=== PATIENT | female | born 1930 | race Caucasian/White ===

== ENCOUNTER 2018-04-16 11:11 | Inpatient (IN) | payer MEDICARE, OTHER ==
[~2018-04-16] VITALS: Ht 152.4 cm; Wt 40.9 kg
[2018-04-16] MEDS ORDERED: CEFEPIME 2GM/50 ML (PMX) 50 ML IVPB STA (11:28)
[2018-04-16] MEDS ORDERED: VANCOMYCIN 1 GM (PMX) 250 ML IVPB ONE (11:30)
[2018-04-16] MEDS ORDERED: ACETAMINOPHEN 650 MG SUPP PR ONE (12:00)
[2018-04-16] MEDS ORDERED: CHOL100062 PO (12:37)
[2018-04-16] MEDS ORDERED: ASPI325T30 PO (12:37)
[2018-04-16] MEDS ORDERED: IPRA3AMP29 INHALATION (12:37)
[2018-04-16] MEDS ORDERED: DILT120C79 PO (12:38)
[2018-04-16] MEDS ORDERED: LEVO125T7 PO (12:39)
[2018-04-16] MEDS ORDERED: ASPI325T32 PO (12:39)
[2018-04-16] MEDS ORDERED: MULTI PO (12:40)
[2018-04-16] MEDS ORDERED: OMEP20CA16 PO (12:40)
[2018-04-16] MEDS ORDERED: ACET-2047 PO (12:41)
[2018-04-16] MEDS ORDERED: TRAM50TA PO (12:41)
[2018-04-16] MEDS ORDERED: METF-849 PO (12:42)
[2018-04-16] MEDS ORDERED: MECL-77 PO (12:42)
[2018-04-16] MEDS ORDERED: INSU100C SQ (12:43)
[2018-04-16] MEDS ORDERED: MAGN400O19 PO (12:44)
[2018-04-16] MEDS ORDERED: CLON1TAB13 PO (12:45)
[2018-04-16] MEDS ORDERED: QUET25TA PO (12:46)
[2018-04-16] MEDS ORDERED: SERT50TA PO (12:46)
[2018-04-16] MEDS ORDERED: traMADol 50 MG TAB PO PRN (14:00)
[2018-04-16] MEDS ORDERED: ALBUTEROL/IPRATROPIUM (NEB) 3 ML AMP NEB PRN (14:00)
[2018-04-16] MEDS ORDERED: MECLIZINE 25 MG TAB PO PRN (14:00)
[2018-04-16] MEDS ORDERED: ONDANSETRON 4 MG INJ IV PRN ×2 (14:00→14:30)
[2018-04-16] MEDS ORDERED: MAGNESIUM HYDROXIDE 30ML CUP PO PRN (14:00)
[2018-04-16] MEDS ORDERED: ACETAMINOPHEN 325 MG TAB PO PRN ×2 (14:00→14:30)
[2018-04-16] MEDS ORDERED: SODIUM CHLORIDE 0.9% 1L BAG IV* STA (14:06)
--- NOTE | 2018-04-16 14:06 | ERD ---
ER Documentation Chief Complaint Chief Complaint PT BIB AMBULANCE FROM [facility], GIVEN [facility]ARCH SPECIALIST HPI Patient is a 87-year-old female who presents with shortness of breath. She has supposedly being treated for pneumonia recently. Please note the history and physical exam is limited secondary to the patient's mental status at this time. The patient was supposedly given a clonazepam this morning which may account for some of her altered mental status. Upon review of old medical records this is the patient's first visit to the emergency department. Unable to obtain history otherwise. ROS All systems reviewed and are negative except as per history of present illness. Medications Home Meds Reported Medications Quetiapine Fumarate* (Seroquel*) 25 Mg Tablet, 12.5 MG PO QPM, #60 TAB 04/16/18 Sertraline Hcl* (Zoloft*) 50 Mg Tablet, 50 MG PO DAILY, #30 TAB 04/16/18 Clonazepam* (Clonazepam*) 1 Mg Tablet, 1 MG PO BID PRN for ANXIETY, TAB 04/16/18 Magnesium Hydroxide* (Milk Of Magnesia*) 400 Mg/5 Ml Oral.susp, 30 ML PO DAILY PRN for CONSTIPATION, ML 04/16/18 Insulin Lispro (Humalog) 100 Unit/1 Ml Cartridge, 2-12 UNIT SQ AC B, EA 04/16/18 Metformin* (Glucophage*) 500 Mg Tab, 500 MG PO BID, #90 TAB 04/16/18 Meclizine Hcl* (Meclizine Hcl*) 25 Mg Tablet, 25 MG PO Q8H PRN for DIZZINESS, TAB 04/16/18 Tramadol Hcl* (Ultram*) 50 Mg Tablet, 50 MG PO Q6H PRN for PAIN, TAB 04/16/18 Acetaminophen* (Acetaminophen*) 650 Mg Tablet, 650 MG PO Q4 PRN for PAIN AND OR ELEVATED TEMP, #30 TAB 04/16/18 Omeprazole* (Omeprazole*) 20 Mg Capsule.dr, 20 MG PO AC BREAKFAST, #30 CAP 04/16/18 Multivitamins* (Theragran*) 1 Tab Tab, 1 TAB PO DAILY, TAB 04/16/18 Levothyroxine Sodium* (Levothyroxine Sodium*) 125 Mcg Tablet, 125 MCG PO BEFORE BREAKFAST, #30 TAB 04/16/18 Aspirin* (Aspirin* EC) 325 Mg Tab, 325 MG PO DAILY, TAB 04/16/18 Diltiazem Hcl* (Diltiazem XT) 120 Mg Capsule.sa, 120 MG PO BID, #30 CAP 04/16/18 Cholecalciferol* (Vitamin D3*) 1,000 Unit Tablet, 1000 UNIT PO DAILY, TAB 04/16/18 Ipratropium-Albuterol (Ipratropium-Albuterol) 0.5-3 Mg/3 Ml Ampul.neb, 3 ML INHALATION Q6 PRN for WHEEZING AND SOB, #30 VIAL 04/16/18 Discontinued Reported Medications Aspirin* (Aspirin*) 325 Mg Tablet, 325 MG PO DAILY, TAB 04/16/18 Allergies Allergies: Coded Allergies: codeine (Verified Allergy, Unknown, 04/16/18) PMhx/Soc Hx Respiratory Disorders: Yes (CHRONIC RESP FAILURE, PNEUMONIA) Hx Miscellaneous Medical Probl: Yes (HYPOTHYROID, DM, SEPSIS) Hx Alcohol Use: No Hx Substance Use: No Hx Tobacco Use: No Smoking Status: Unknown if ever smoked FmHx Unable to obtain Physical Exam Vitals Vital Signs Date Temp Pulse Resp B/P (MAP) Pulse Ox O2 O2 Flow FiO2 Time Delivery Rate 04/16/18 100.7 12:00 04/16/18 Simple 11:50 Mask 04/16/18 100.7 113 21 153/64 97 11:44 (93) Physical Exam Const: Altered Head: Atraumatic Eyes: Normal Conjunctiva ENT: Normal External Ears, Nose and Mouth. Neck: Full range of motion. No meningismus. Resp: Rhonchorous breath sounds diffusely with tachypnea Cardio: Tachycardic rate without murmur Abd: Soft, non tender, non distended. Normal bowel sounds Skin: No petechiae or rashes Back: No midline or flank tenderness Ext: No cyanosis, or edema Neur: Opens eyes to pain but does not respond to questions Result Diagram: 04/16/18 1204 04/16/18 1204 Results 24 hrs Laboratory Tests Test 04/16/18 11:59 04/16/18 12:04 POC Venous Lactate 1.9 mmol/L White Blood Count 14.3 10^3/ul Red Blood Count 3.38 10^6/ul Hemoglobin 10.1 g/dl Hematocrit 34.1 % Mean Corpuscular Volume 100.9 fl Mean Corpuscular Hemoglobin 29.9 pg Mean Corpuscular Hemoglobin Concent 29.6 g/dl Red Cell Distribution Width 14.4 % Platelet Count 349 10^3/UL Mean Platelet Volume 8.9 fl Immature Granulocytes % 0.400 % Neutrophils % 93.4 % Lymphocytes % 4.1 % Monocytes % 1.7 % Eosinophils % 0.1 % Basophils % 0.3 % Nucleated Red Blood Cells % 0.0 /100WBC Immature Granulocytes # 0.060 10^3/ul Neutrophils # 13.4 10^3/ul Lymphocytes # 0.6 10^3/ul Monocytes # 0.2 10^3/ul Eosinophils # 0.0 10^3/ul Basophils # 0.0 10^3/ul Nucleated Red Blood Cells # 0.0 10^3/ul Prothrombin Time 13.7 Sec Prothrombin Time Ratio 1.1 INR International Normalized Ratio 1.04 Activated Partial Thromboplast Time 26.3 Sec Sodium Level 146 mmol/L Potassium Level 4.1 mmol/L Chloride Level 103 mmol/L Carbon Dioxide Level 38 mmol/L Anion Gap 5 Blood Urea Nitrogen 43 mg/dl Creatinine 0.52 mg/dl Est Glomerular Filtrat Rate mL/min mL/min Glucose Level 273 mg/dl Calcium Level 9.7 mg/dl Total Bilirubin 0.1 mg/dl Direct Bilirubin 0.00 mg/dl Indirect Bilirubin 0.1 mg/dl Aspartate Amino Transf (AST/SGOT) 19 IU/L Alanine Aminotransferase (ALT/SGPT) 25 IU/L Alkaline Phosphatase 75 IU/L Troponin I 0.022 ng/ml Total Protein 6.1 g/dl Albumin 3.1 g/dl Globulin 3.00 g/dl Albumin/Globulin Ratio 1.03 Current Medications Medications Dose Sig/Jaya Start Time Status Last (Trade) Ordered Route PRN Stop Time Admin Dose Reason Admin Cefepime HCl 50 ml @ ONCE STAT 04/16/18 DC 04/16/18 100 mls/hr IVPB 11:28 12:22 04/16/18 11:57 Vancomycin 250 ml @ ONCE ONCE 04/16/18 DC 04/16/18 HCl 125 mls/hr IVPB 11:30 12:55 04/16/18 13:29 650 mg ONCE ONCE 04/16/18 DC 04/16/18 Acetaminophen UT 12:00 12:00 (Tylenol 04/16/18 12:02 Supp) Ondansetron 4 mg ER BRIDGE 04/16/18 HCl (Zofran PRN IV 14:00 Inj) NAUSEA AND/OR 04/17/18 13:59 VOMITING 650 mg ER BRIDGE 04/16/18 Acetaminophen PRN PO MILD 14:00 (Tylenol PAIN(1-3)OR 04/17/18 13:59 Tab) ELEVATED TEMP Procedures/MDM Chest x-ray read by radiology EKG read by me: Rate/Rhythm: Sinus tachycardia rate of 113 Intervals: Normal Impression: Tachycardia without ischemia Sepsis Documentation: Patient's infectious symptoms have not stabilized and the patient is at risk of rapid decompensation. The patient will be admitted for careful hydration, antibiotic therapy, and infectious source control. SEVERE SEPSIS CRITERIA: Infectious source: Pneumonia End organ damage indicated by: No endorgan damage at this time SEPSIS MANAGEMENT Time of recognition of sepsis: 11:59 AM Time of recognition of severe sepsis: [No severe sepsis at this time]. Time of recognition of septic shock: [No septic shock at this time]. 3 HOUR BUNDLE Blood cultures x 2 before broad-spectrum antibiotics: [Yes] 30 ml/kg NS bolus [Completed] Initial lactate 1.9 Repeat lactate pending SEPTIC SHOCK ASSESSMENT: [No] lactic acid > 4.0 [No] Persistent hypotension (SBP < 90 or 40 mmHg drop, MAP < 65) despite 30 mL/kg IV fluid bolus VOLUME REASSESSMENT FOR SEPTIC SHOCK: No septic shock at this time PERSISTENT HYPOTENSION TREATMENT: Comfort care [No] Central line [Not Required] Vasopressor started [Not required] I considered further perfusion assessment with CVP measurement, SCVO2, bedside ultrasound volume assessment, passive leg raise, trial of further fluid bolus. And proceeded with broad-spectrum antibiotics and admission as well as 30 mL/kg of normal saline. CRITICAL CARE Critical care time [35] minutes Emergent fluid management while maintaining close respiratory support. Provision of immediate and broad-spectrum antibiotic therapy. Simultaneous assessment for possible sources in order to direct targeted therapy. Consideration for invasive and chemical support to prevent cardiopulmonary collapse. Critical care time is independent of procedures performed. Departure Diagnosis: Primary Impression: Sepsis Sepsis type: sepsis due to unspecified organism Qualified Codes: A41.9 - Sepsis, unspecified organism Additional Impressions: PNA (pneumonia) Pneumonia type: due to unspecified organism Laterality: unspecified laterality Lung location: unspecified part of lung Qualified Codes: J18.9 - Pneumonia, unspecified organism Altered level of consciousness Condition: GIOVANNY Chau MD Apr 16, 2018 14:05
[2018-04-16] MEDS ORDERED: morphine 2 MG INJ IV STA (14:28)
[2018-04-16] MEDS ORDERED: SOD CHLORIDE 0.9% 1,000 ML IV SCH (14:30)
[2018-04-16] MEDS ORDERED: NACL 0.9% 3 ML SYG IV SCH (14:30)
[2018-04-16] MEDS ORDERED: IOHEXOL 300MG/ML 150 ML BTL ONE (14:35)
[2018-04-16] MEDS ORDERED: SOD CHLORIDE 0.9% 100 ML ONE (14:35)
[2018-04-16] MEDS ORDERED: IODIXANOL LOCM 100 ML BTL ONE (14:38)
[2018-04-16] MEDS ORDERED: DEXTROSE 50% 50 ML SYRINGE IV PRN ×2 (16:30)
[2018-04-16] MEDS ORDERED: GLUCOSE GEL 15 GRAM TUBE BUCCAL PRN (16:30)
[2018-04-16] MEDS ORDERED: GLUCAGON 1 MG INJ IM PRN (16:30)
[2018-04-16] MEDS ORDERED: GLUCOSE GEL 15 GRAM TUBE PO PRN ×2 (16:30)
[2018-04-16 16:57] VITALS: PULSE 160
[2018-04-16] MEDS ORDERED: DILTIAZEM 25 MG INJ IV ONE (17:00)
[2018-04-16] MEDS ORDERED: AMIODARONE 150MG/D5W BOLUS 100 ML IV ONE (17:30)
--- NOTE | 2018-04-16 17:54 | HP ---
Date/Time of Note Date/Time of Note DATE: 04/16/18 TIME: 17:12 Assessment/Plan VTE Prophylaxis SCD applied (from Nsg): Yes Pharmacological prophylaxis: heparin Lines/Catheters IV Catheter Type (from Nrsg): Saline Lock Assessment/Plan Assessment/Plan 1. Acute hypoxic respiratory failure secondary to pneumonia vs neoplastic process - Patient transitioned to high flow in ED - continue on IV antibiotics and steroids - Pulmonology consultation placed for further recommendations - CT scan results show soft tissue density in right hilum as well as " Extensive lower lung predominant ground-glass and nodular infiltrates and tree in bud nodules. Findings could represent an atypical infectious process with bronchio litis in the acute clinical setting. Differential diagnosis includes neoplastic process with endobronchial spread of tumor. Recommend short term follow-up CT to document complete resolution." 2. Afib with RVR - patient in afib with HR in 170s - Will consult Cardiology for recommendations - Given Cardizem 5mg with no improvement and will start on Amiodarone drip 3. hypothyroidism - continue levothyroxine 4. DM - A1c 7.7 - Will continue on ISS and accuchecks - added Novolog 70/30 with steroids 5. HTN 6. Rheumatoid arthritis - continue on pain control as tolerated 7. Diet - pureed 8. DVT ppx - heparin 9. code status - Per POL, pt is full code. Discussed code status with son who would like her to remain full code since has family coming for DC and would like to keep on life support if needed until all family is in town. 10. Disposition - admit to telemetry for treatment of acute respiratory distress. Result Diagram: 04/16/18 1204 04/16/18 1204 Results 24hrs Laboratory Tests Test 04/16/18 11:59 04/16/18 12:04 04/16/18 15:22 POC Venous Lactate 1.9 1.0 White Blood Count 14.3 H Red Blood Count 3.38 L Hemoglobin 10.1 L Hematocrit 34.1 L Mean Corpuscular Volume 100.9 Mean Corpuscular Hemoglobin 29.9 Mean Corpuscular Hemoglobin Concent 29.6 L Red Cell Distribution Width 14.4 Platelet Count 349 Mean Platelet Volume 8.9 Immature Granulocytes % 0.400 Neutrophils % 93.4 H Segmented Neutrophils % (Manual) 32 L Band Neutrophils % (Manual) 62 H Lymphocytes % 4.1 L Lymphocytes % (Manual) 3 L Monocytes % 1.7 Monocytes % (Manual) 1 Eosinophils % 0.1 Basophils % 0.3 Metamyelocytes % (manual) 2 H Nucleated Red Blood Cells % 0.0 Immature Granulocytes # 0.060 H Neutrophils # 13.4 H Neutrophils # (Manual) 5.8 Band Neutrophils # 8.8 H Lymphocytes (Manual) 0.4 L Lymphocytes # 0.6 L Monocytes # 0.2 L Monocytes # (Manual) 0.1 L Eosinophils # 0.0 Basophils # 0.0 Metamyelocytes # 0.2 H Nucleated Red Blood Cells # 0.0 Platelet Estimate NORMAL Anisocytosis 1+ Macrocytosis 1+ Prothrombin Time 13.7 Prothrombin Time Ratio 1.1 INR International Normalized Ratio 1.04 Activated Partial Thromboplast Time 26.3 Sodium Level 146 H Potassium Level 4.1 Chloride Level 103 Carbon Dioxide Level 38 H Anion Gap 5 Blood Urea Nitrogen 43 H Creatinine 0.52 Est Glomerular Filtrat Rate mL/min Glucose Level 273 H Hemoglobin A1c 7.7 H Calcium Level 9.7 Total Bilirubin 0.1 L Direct Bilirubin 0.00 Indirect Bilirubin 0.1 Aspartate Amino Transf (AST/SGOT) 19 Alanine Aminotransferase (ALT/SGPT) 25 Alkaline Phosphatase 75 Troponin I 0.022 Total Protein 6.1 Albumin 3.1 L Globulin 3.00 Albumin/Globulin Ratio 1.03 HPI/ROS Admit Date/Time Admit Date/Time Apr 16, 2018 at 13:54 Hx of Present Illness 87 yo F with PMH hypothyroidism, elevated sugars, and HTN presented from [facility] for altered mental status and confusion. She was given Klonopin prior to arrival. Son was at bedside and history obtained from son. Patient was nonresponsive with respiratory distress and unable to provide proper history. Per son, [facility] multiple admission to [facility] for UTI and most recently pneumonia. She is currently on a steroid taper as well and son is concerned about elevated sugar levels. Patient is currently on simple mask and being transitioned to high flow given tachypnea and labored breathing. ROS All 12 systems reviewed and pertinent positives as per HPI. All others negative but unable to obtain full ROS due to altered mental status. Subjective hx not possible: pt non-verbal, other (confused) Respiratory: shortness of breath PMH/Family/Social Past Medical History Medical History: hypertension, hypothyroid, other (high blood sugar secondary to steroids ) Medications Current Medications Aspirin (Ecotrin) 325 mg DAILY PO ; Start 04/17/18 at 09:00 Cholecalciferol (Vitamin D) 1,000 unit DAILY PO ; Start 04/17/18 at 09:00 Diltiazem HCl (Cardizem Cd) 120 mg BID PO ; Start 04/16/18 at 21:00 Albuterol/ Ipratropium (Duoneb) 3 ml Q6H RESP THERAPY PRN NEB WHEEZING AND SOB; Start 04/16/18 at 14:00 Levothyroxine Sodium (Synthroid) 125 mcg BEFORE BREAKFAST PO ; Start 04/17/18 at 07:00 Magnesium Hydroxide (Milk Of Mag) 30 ml DAILY PRN PO CONSTIPATION; Start 04/16/18 at 14:00 Meclizine HCl (Antivert) 25 mg Q8H PRN PO DIZZINESS; Start 04/16/18 at 14:00 Multivitamins Therapeutic (Theragran) 1 tab DAILY PO ; Start 04/17/18 at 09:00 Quetiapine Fumarate (Seroquel) 12.5 mg QPM PO ; Start 04/16/18 at 21:00 Sertraline HCl (Zoloft) 50 mg DAILY PO ; Start 04/17/18 at 09:00 Tramadol HCl (Ultram) 50 mg Q6H PRN PO PAIN; Start 04/16/18 at 14:00 Pantoprazole (Protonix Tab) 40 mg DAILY@06 PO ; Start 04/17/18 at 06:00 IV Flush (NS 3 ml) 3 ml PER PROTOCOL IV ; Start 04/16/18 at 14:30 Ondansetron HCl (Zofran Inj) 4 mg Q6H PRN IV NAUSEA AND/OR VOMITING; Start 04/16/18 at 14:30 Acetaminophen (Tylenol Tab) 650 mg Q6H PRN PO PAIN LEVEL 1-3 OR FEVER; Start 04/16/18 at 14:30 Enoxaparin Sodium (Lovenox) 30 mg DAILY SC ; Start 04/17/18 at 09:00 Cefepime HCl 50 ml @ 100 mls/hr Q24H IVPB ; Start 04/16/18 at 21:00 Levalbuterol (Xopenex Neb) 0.63 mg Q6H RESP THERAPY HHN ; Start 04/16/18 at 20:00 Insulin Aspart (Novolog Insulin Pen) NOVOLOG *MILD* ALGORITHM WITH MEALS BEDTIME SC ; Start 04/16/18 at 18:00 Methylprednisolone Sodium Succinate (Solu-Medrol) 40 mg Q12 IV ; Start 04/16/18 at 21:00 Insulin Aspart Prota 70%/Aspart 30% (Novolog Mix (70/ 30) Flexpen) 10 unit BID SC ; Start 04/16/18 at 21:00 Sodium Chloride 1,000 ml @ 50 mls/hr Q20H IV Last administered on 04/16/18at 14:30; Admin Dose 50 MLS/HR; Start 04/16/18 at 14:30 Miscellaneous Information 1 ea NOTE XX ; Start 04/16/18 at 16:30 Glucose (Glutose) 15 gm Q15M PRN PO DECREASED GLUCOSE; Start 04/16/18 at 16:30 Glucose (Glutose) 22.5 gm Q15M PRN PO DECREASED GLUCOSE; Start 04/16/18 at 16:30 Dextrose (D50w Syringe) 25 ml Q15M PRN IV DECREASED GLUCOSE; Start 04/16/18 at 16:30 Dextrose (D50w Syringe) 50 ml Q15M PRN IV DECREASED GLUCOSE; Start 04/16/18 at 16:30 Glucagon (Glucagen) 1 mg Q15M PRN IM DECREASED GLUCOSE; Start 04/16/18 at 16:30 Glucose (Glutose) 15 gm Q15M PRN BUCCAL DECREASED GLUCOSE; Start 04/16/18 at 16:30 Coded Allergies: codeine (Verified Allergy, Unknown, 04/16/18) Past Surgical History Past Surgical Hx: other (unable to obtain) Family History Significant Family History: no pertinent family hx Social History Alcohol Use: none Smoking Status: Unknown if ever smoked Drug Use: none Exam/Review of Systems Vital Signs Vitals Vital Signs Date Temp Pulse Resp B/P (MAP) Pulse Ox O2 O2 Flow FiO2 Time Delivery Rate 04/16/18 160 16:57 04/16/18 96 75 16:30 04/16/18 98.1 32 135/75 High Flow 15:39 (95) Exam Exam General: Patient in respiratory distress and unable to answer questions HEENT: Atraumatic, normocephalic. The pupils are equal, round and reactive. Extraocular motor are intact Neck: Supple with full range of motion. No rigidity or meningismus Chest: Nontender to palpation Lungs: Diminished diffusely with expiratory wheezing and crackles Heart: Normal S1-S2, Irregular rhythm, tachycardia. No overt murmurs appreciated on auscultation Abdomen: Soft , nontender, nondistended , bowel sounds are present. No guarding no rebound tenderness , No masses or organomegaly. No costovertebral temporal angle mass Extremities: no cyanosis, clubbing, or edema Neurologic: unable to assess Additional Comments Home medications reviewed Imaging: PROCEDURE: XR Chest. CLINICAL INDICATION: Chest pain TECHNIQUE: Single frontal view of the chest was obtained. COMPARISON: None FINDINGS: The heart is within normal limits. The thoracic aorta is calcified. There are increased interstitial changes throughout the lungs. There is no focal consolidation. There is no pleural effusion or pneumothorax. RPTAT: AA IMPRESSION: Moderate increased interstitial changes throughout the lungs with no focal consolidation. Calcified aorta consistent with atherosclerotic disease. .Mick Melo MD, MD Date Time Electronically viewed and signed by .Mick Melo MD, MD on 04/16/2018 12:00 PROCEDURE: CT chest with contrast CLINICAL INDICATION: Shortness of breath TECHNIQUE: Transaxial computed tomographic images of the chest were obtained following the uneventful administration of 80 mL Visipaque 320 intravenous contrast. Coronal and sagittal reformatted images were provided. DICOM images are available. Radiation dose: CTDIvol (mGy) = 7.06; total DLP (mGy.cm) = 226.1. One or more of the following dose reduction techniques were used: - Automated exposure control. - Adjustment of the mA and/or kV according to patient size. - Use of iterative reconstruction technique. COMPARISON: DR CORCORAN 04/16/2018. FINDINGS: Examination is limited by motion artifacts. Heart size is normal. There is no pericardial effusion. There are moderate to severe atherosclerotic calcifications of the aorta and coronary arteries. There is no enlarged mediastinal or axillary lymph node. There is no pleural effusion or pneumothorax. Multiple surgical clips are seen in the right breast. Lung windows demonstrates extensive ground-glass and nodular infiltrates and tree in bud nodules, predominantly in the lower lungs. There is an ill-defined soft tissue density in the right hilum measuring approximately 2.6 x 2.2 cm narrowing distal right mainstem bronchus, bronchus intermedius and proximal rig ht middle lobe bronchus. Limited images of the upper abdomen demonstrate partial visualization of an exophytic right upper pole renal cyst measuring 5.5 cm. There is diffuse hepatic steatosis. Adrenal glands are normal. There is partial visualization of thick- walled hepatic flexure of the colon. Bone window demonstrates moderate multilevel degenerative changes of thoracic spine. There is increased thoracic kyphosis. IMPRESSION: 1. Extensive lower lung predominant ground-glass and nodular infiltrates and tree in bud nodules. Findings could represent an atypical infectious process with bronchiolitis in the acute clinical setting. Differential diagnosis includes neoplastic process with endobronchial spread of tumor. Recommend short term follow-up CT to document complete resolution. 2. Ill-defined soft tissue density in the right hilum narrowing the distal right mainstem bronchus, proximal right middle lobe bronchus and bronchus intermedius. Differential diagnosis includes an infectious or neoplastic process. 3. Moderate to severe aortic and coronary atherosclerosis. 4. Partial visualization of thick-walled hepatic flexure of the colon, incompletely evaluated on this examination. Colitis is not excluded. 5. Other incidental findings, as above. RPTAT:AAEE Physician Stephanie Date Time Electronically viewed and signed by Physician Stephanie on 04/16/2018 15:27 CHASE LIM MD Apr 16, 2018 17:54
[2018-04-16] MEDS: INSULIN ASPART [NOVOLOG] 3 ML PEN SC SCH ×2 (18:00→22:07)
[2018-04-16] MEDS: AMIODARONE 900 MG in DEXTROSE 5% 482 ML IV SCH (18:27)
[2018-04-16] MEDS ORDERED: DIGOXIN 500 MCG INJ IV ONE (18:30)
--- NOTE | 2018-04-16 18:33 | CONS ---
Date/Time of Note Date/Time of Note DATE: 04/16/18 TIME: 18:25 Assessment/Plan Assessment/Plan Hospital Course New onset atrial fibrillation with RVR: No known history. Likely due to underlying respiratory failure Respiratory failure:CT shows possible bronchiolitis as well as right hilar mass compressing right airway. Does not appear to have CHF at this time and respiratory distress preceded the afib so unlikely due to the RVR PNA Right hilar mass DM HTN Hypothyroidism -continue amiodarone with hopes of converting to sinus -one dose of digoxin 500mcg IV to help with rate control in the interim. If remains in afib with RVR, could complete the load by giving another 250mcg in 6 hours and repeating x 1 more after that -antibiotics -may need BiPAP or intubation if continues to worsen -f/u echo Result Diagram: 04/16/18 1204 04/16/18 1204 Results 24hrs Laboratory Tests Test 04/16/18 11:59 04/16/18 12:04 04/16/18 15:22 04/16/18 17:35 POC Venous Lactate 1.9 1.0 White Blood Count 14.3 H Red Blood Count 3.38 L Hemoglobin 10.1 L Hematocrit 34.1 L Mean Corpuscular 100.9 Volume Mean Corpuscular 29.9 Hemoglobin Mean Corpuscular 29.6 L Hemoglobin Concent Red Cell 14.4 Distribution Width Platelet Count 349 Mean Platelet Volume 8.9 Immature 0.400 Granulocytes % Neutrophils % 93.4 H Segmented 32 L Neutrophils % (Manual) Band Neutrophils % 62 H (Manual) Lymphocytes % 4.1 L Lymphocytes % 3 L (Manual) Monocytes % 1.7 Monocytes % (Manual) 1 Eosinophils % 0.1 Basophils % 0.3 Metamyelocytes % 2 H (manual) Nucleated Red Blood 0.0 Cells % Immature 0.060 H Granulocytes # Neutrophils # 13.4 H Neutrophils # 5.8 (Manual) Band Neutrophils # 8.8 H Lymphocytes (Manual) 0.4 L Lymphocytes # 0.6 L Monocytes # 0.2 L Monocytes # (Manual) 0.1 L Eosinophils # 0.0 Basophils # 0.0 Metamyelocytes # 0.2 H Nucleated Red Blood 0.0 Cells # Platelet Estimate NORMAL Anisocytosis 1+ Macrocytosis 1+ Prothrombin Time 13.7 Prothrombin Time 1.1 Ratio INR International 1.04 Normalized Ratio Activated 26.3 Partial Thromboplast Time Sodium Level 146 H Potassium Level 4.1 Chloride Level 103 Carbon Dioxide Level 38 H Anion Gap 5 Blood Urea Nitrogen 43 H Creatinine 0.52 Est Glomerular Filtrat Rate mL/min Glucose Level 273 H Hemoglobin A1c 7.7 H Calcium Level 9.7 Total Bilirubin 0.1 L Direct Bilirubin 0.00 Indirect Bilirubin 0.1 Aspartate Amino 19 Transf (AST/SGOT) Alanine 25 Aminotransferase (AL T/SGPT) Alkaline Phosphatase 75 Troponin I 0.022 Total Protein 6.1 Albumin 3.1 L Globulin 3.00 Albumin/Globulin 1.03 Ratio Bedside Glucose 292 H Consultation Date/Type/Reason Admit Date/Time Apr 16, 2018 at 13:54 Date of Consultation: Apr 16, 2018 Type of Consult Cardiology Reason for Consultation afib with RVR Requesting Provider: CHASE LIM MD Hx of Present Illness 87 yo F with a h/o recurrent HTN, DM, hypothyroidism, who presented due to respiratory distress from her [facility]. She was treated for PNA and CT showed possible bronchiolitis as well as right hilar mass compressing on her right mainstem. She was in sinus on presentation and then went into afib with RVR while on the tele floor. She has been placed on high flow NC. She continued to have respiratory distress. Caregiver is at bedside. Family is not available but per report they want her to be full code. unable to obtain Past Medical History per hPI Medical History: hypertension, hypothyroid, other (high blood sugar secondary to steroids ) Medications Current Medications Aspirin (Ecotrin) 325 mg DAILY PO ; Start 04/17/18 at 09:00 Cholecalciferol (Vitamin D) 1,000 unit DAILY PO ; Start 04/17/18 at 09:00 Diltiazem HCl (Cardizem Cd) 120 mg BID PO ; Start 04/16/18 at 21:00 Albuterol/ Ipratropium (Duoneb) 3 ml Q6H RESP THERAPY PRN NEB WHEEZING AND SOB; Start 04/16/18 at 14:00 Levothyroxine Sodium (Synthroid) 125 mcg BEFORE BREAKFAST PO ; Start 04/17/18 at 07:00 Magnesium Hydroxide (Milk Of Mag) 30 ml DAILY PRN PO CONSTIPATION; Start 04/16/18 at 14:00 Meclizine HCl (Antivert) 25 mg Q8H PRN PO DIZZINESS; Start 04/16/18 at 14:00 Multivitamins Therapeutic (Theragran) 1 tab DAILY PO ; Start 04/17/18 at 09:00 Quetiapine Fumarate (Seroquel) 12.5 mg QPM PO ; Start 04/16/18 at 21:00 Sertraline HCl (Zoloft) 50 mg DAILY PO ; Start 04/17/18 at 09:00 Tramadol HCl (Ultram) 50 mg Q6H PRN PO PAIN; Start 04/16/18 at 14:00 Pantoprazole (Protonix Tab) 40 mg DAILY@06 PO ; Start 04/17/18 at 06:00 IV Flush (NS 3 ml) 3 ml PER PROTOCOL IV ; Start 04/16/18 at 14:30 Ondansetron HCl (Zofran Inj) 4 mg Q6H PRN IV NAUSEA AND/OR VOMITING; Start 04/16/18 at 14:30 Acetaminophen (Tylenol Tab) 650 mg Q6H PRN PO PAIN LEVEL 1-3 OR FEVER Last administered on 04/16/18at 17:38; Admin Dose 650 MG; Start 04/16/18 at 14:30 Enoxaparin Sodium (Lovenox) 30 mg DAILY SC ; Start 04/17/18 at 09:00 Cefepime HCl 50 ml @ 100 mls/hr Q24H IVPB ; Start 04/16/18 at 21:00 Levalbuterol (Xopenex Neb) 0.63 mg Q6H RESP THERAPY HHN ; Start 04/16/18 at 20:00 Insulin Aspart (Novolog Insulin Pen) NOVOLOG *MILD* ALGORITHM WITH MEALS BEDTIME SC ; Start 04/16/18 at 18:00 Methylprednisolone Sodium Succinate (Solu-Medrol) 40 mg Q12 IV ; Start 04/16/18 at 21:00 Insulin Aspart Prota 70%/Aspart 30% (Novolog Mix (70/ 30) Flexpen) 10 unit BID SC ; Start 04/16/18 at 21:00 Sodium Chloride 1,000 ml @ 50 mls/hr Q20H IV Last administered on 04/16/18at 14:30; Admin Dose 50 MLS/HR; Start 04/16/18 at 14:30 Miscellaneous Information 1 ea NOTE XX ; Start 04/16/18 at 16:30 Glucose (Glutose) 15 gm Q15M PRN PO DECREASED GLUCOSE; Start 04/16/18 at 16:30 Glucose (Glutose) 22.5 gm Q15M PRN PO DECREASED GLUCOSE; Start 04/16/18 at 16:30 Dextrose (D50w Syringe) 25 ml Q15M PRN IV DECREASED GLUCOSE; Start 04/16/18 at 16:30 Dextrose (D50w Syringe) 50 ml Q15M PRN IV DECREASED GLUCOSE; Start 04/16/18 at 16:30 Glucagon (Glucagen) 1 mg Q15M PRN IM DECREASED GLUCOSE; Start 04/16/18 at 16:30 Glucose (Glutose) 15 gm Q15M PRN BUCCAL DECREASED GLUCOSE; Start 04/16/18 at 16:30 Amiodarone HCl 900 mg/Dextrose 500 ml @ 0 mls/hr Q0M IV ; Start 04/16/18 at 17:30 Allergies: Coded Allergies: codeine (Verified Allergy, Unknown, 04/16/18) Past Surgical History Past Surgical Hx: other (unable to obtain) Social History Alcohol Use: none Smoking Status: Unknown if ever smoked Drug Use: none Exam/Review of Systems Vital Signs Vitals Vital Signs Date Temp Pulse Resp B/P (MAP) Pulse Ox O2 O2 Flow FiO2 Time Delivery Rate 04/16/18 Vapotherm 17:58 04/16/18 160 16:57 04/16/18 96 75 16:30 04/16/18 98.1 32 135/75 15:39 (95) Exam Constitutional: distress (respiratory ); No alert (somnolent ) Head: normocephalic, atraumatic Neck: No jvd (elevated EJ with expiration ) Respiratory: other (diffuse ronchi); No clear to auscultation Cardiovascular: systolic murmur (2/6 ONIEL); No regular rate and rhythm (IRIR, tachycardic ) Gastrointestinal: soft, non-tender; No distended Neurological: No nl mental status, No nl speech Skin: No rash or lesions Medications Medications Current Medications Aspirin (Ecotrin) 325 mg DAILY PO ; Start 04/17/18 at 09:00 Cholecalciferol (Vitamin D) 1,000 unit DAILY PO ; Start 04/17/18 at 09:00 Diltiazem HCl (Cardizem Cd) 120 mg BID PO ; Start 04/16/18 at 21:00 Albuterol/ Ipratropium (Duoneb) 3 ml Q6H RESP THERAPY PRN NEB WHEEZING AND SOB; Start 04/16/18 at 14:00 Levothyroxine Sodium (Synthroid) 125 mcg BEFORE BREAKFAST PO ; Start 04/17/18 at 07:00 Magnesium Hydroxide (Milk Of Mag) 30 ml DAILY PRN PO CONSTIPATION; Start at 14:00 Meclizine HCl (Antivert) 25 mg Q8H PRN PO DIZZINESS; Start 04/16/18 at 14:00 Multivitamins Therapeutic (Theragran) 1 tab DAILY PO ; Start 04/17/18 at 09:00 Quetiapine Fumarate (Seroquel) 12.5 mg QPM PO ; Start 04/16/18 at 21:00 Sertraline HCl (Zoloft) 50 mg DAILY PO ; Start 04/17/18 at 09:00 Tramadol HCl (Ultram) 50 mg Q6H PRN PO PAIN; Start 04/16/18 at 14:00 Pantoprazole (Protonix Tab) 40 mg DAILY@06 PO ; Start 04/17/18 at 06:00 IV Flush (NS 3 ml) 3 ml PER PROTOCOL IV ; Start 04/16/18 at 14:30 Ondansetron HCl (Zofran Inj) 4 mg Q6H PRN IV NAUSEA AND/OR VOMITING; Start 04/16/18 at 14:30 Acetaminophen (Tylenol Tab) 650 mg Q6H PRN PO PAIN LEVEL 1-3 OR FEVER Last administered on 04/16/18at 17:38; Admin Dose 650 MG; Start 04/16/18 at 14:30 Enoxaparin Sodium (Lovenox) 30 mg DAILY SC ; Start 04/17/18 at 09:00 Cefepime HCl 50 ml @ 100 mls/hr Q24H IVPB ; Start 04/16/18 at 21:00 Levalbuterol (Xopenex Neb) 0.63 mg Q6H RESP THERAPY HHN ; Start 04/16/18 at 20:00 Insulin Aspart (Novolog Insulin Pen) NOVOLOG *MILD* ALGORITHM WITH MEALS BEDTIME SC ; Start 04/16/18 at 18:00 Methylprednisolone Sodium Succinate (Solu-Medrol) 40 mg Q12 IV ; Start 04/16/18 at 21:00 Insulin Aspart Prota 70%/Aspart 30% (Novolog Mix (70/ 30) Flexpen) 10 unit BID SC ; Start 04/16/18 at 21:00 Sodium Chloride 1,000 ml @ 50 mls/hr Q20H IV Last administered on 04/16/18at 14:30; Admin Dose 50 MLS/HR; Start 04/16/18 at 14:30 Miscellaneous Information 1 ea NOTE XX ; Start 04/16/18 at 16:30 Glucose (Glutose) 15 gm Q15M PRN PO DECREASED GLUCOSE; Start 04/16/18 at 16:30 Glucose (Glutose) 22.5 gm Q15M PRN PO DECREASED GLUCOSE; Start 04/16/18 at 16:30 Dextrose (D50w Syringe) 25 ml Q15M PRN IV DECREASED GLUCOSE; Start 04/16/18 at 16:30 Dextrose (D50w Syringe) 50 ml Q15M PRN IV DECREASED GLUCOSE; Start 04/16/18 at 16:30 Glucagon (Glucagen) 1 mg Q15M PRN IM DECREASED GLUCOSE; Start 04/16/18 at 16:30 Glucose (Glutose) 15 gm Q15M PRN BUCCAL DECREASED GLUCOSE; Start 04/16/18 at 16:30 Amiodarone HCl 900 mg/Dextrose 500 ml @ 0 mls/hr Q0M IV ; Start 04/16/18 at 17:30 BRIAN JIMENES Apr 16, 2018 18:33
[2018-04-16 20:00] VITALS: PULSE 137
[2018-04-16] MEDS ORDERED: ACETAMINOPHEN 650MG/20.3ML CUP PO PRN (20:00)
[2018-04-16 20:04] VITALS: BP 110/76; PULSE 105; RESP 20
[2018-04-16] MEDS: LEVALBUTEROL (NEB) 0.63 MG/3 ML AMP HHN SCH (20:58)
[2018-04-16] MEDS ORDERED: QUETIAPINE 25 MG TAB PO SCH (21:00)
[2018-04-16] MEDS ORDERED: DILTIAZEM (CD) 120 MG CAP PO SCH (21:00)
[2018-04-16] MEDS: CEFEPIME 1GM/50 ML (PMX) 50 ML IVPB SCH (21:25)
[2018-04-16] MEDS: METHYLPREDNISOLONE 40 MG INJ IV SCH (21:30)
[2018-04-16 22:00] VITALS: PULSE 94
[2018-04-16] MEDS: INSULIN ASP PROT/ASPART (70/30) PEN SC SCH (22:07)
[2018-04-16] MEDS ORDERED: SOD CHLORIDE 0.45% 1,000 ML IV SCH (23:00)
[2018-04-16] MEDS ORDERED: LORAZEPAM 4 MG/ML VIAL IV PRN (23:00)
[2018-04-17] VITALS (12 sets, daily range): BP systolic 107–181; BP diastolic 56–77; PULSE 67–97; RESP 18–20
[2018-04-17] MEDS ORDERED: DILTIAZEM 60 MG TAB GTB SCH
[2018-04-17] MEDS ORDERED: INSULIN ASPART [NOVOLOG] 3 ML PEN SC SCH (01:00)
[2018-04-17] MEDS: INSULIN ASPART [NOVOLOG] 3 ML PEN SC SCH ×6 (01:30→20:40)
[2018-04-17] MEDS: LEVALBUTEROL (NEB) 0.63 MG/3 ML AMP HHN SCH ×4 (02:00→19:53)
[2018-04-17] MEDS ORDERED: ACCU-CHEK XX SCH (02:00)
[2018-04-17] MEDS: ACETYLCYSTEINE 20% 4 ML VIAL NEB SCH ×4 (02:00→19:49)
[2018-04-17] MEDS ORDERED: LEVOTHYROXINE 125 MCG TAB ONE (05:18)
[2018-04-17] MEDS ORDERED: PANTOPRAZOLE (EC) 40 MG TAB PO SCH (06:00)
[2018-04-17] MEDS ORDERED: DILTIAZEM-D5W 125MG/125ML DRIP 125 ML IV SCH (06:00)
[2018-04-17] MEDS ORDERED: LANSOPRAZOLE 30 MG CAP PO SCH (06:00)
[2018-04-17] MEDS: LEVOTHYROXINE 100 MCG VIAL IV SCH (06:00)
[2018-04-17] MEDS: PANTOPRAZOLE 40 MG INJ IV SCH (06:28)
[2018-04-17] MEDS ORDERED: LEVOTHYROXINE 125 MCG TAB PO SCH (07:00)
[2018-04-17] MEDS: ASPIRIN 325 MG TAB PO SCH (07:47)
[2018-04-17] MEDS: MULTIVITAMINS 30 ML CUP PO SCH (07:47)
[2018-04-17] MEDS: CHOLECALCIFEROL 1,000 UNIT TAB PO SCH (07:48)
[2018-04-17] MEDS: SERTRALINE 50 MG TAB PO SCH (07:48)
[2018-04-17] MEDS: INSULIN ASP PROT/ASPART (70/30) PEN SC SCH (08:16)
[2018-04-17] MEDS: METHYLPREDNISOLONE 40 MG INJ IV SCH (08:20)
[2018-04-17] MEDS: ENOXAPARIN 30 MG/0.3 ML SYG SC SCH (08:21)
--- NOTE | 2018-04-17 08:27 | PN ---
Date/Time of Note Date/Time of Note DATE: 04/17/18 TIME: 08:27 Assessment/Plan VTE Prophylaxis Risk score (from Ns)>0 risk: 5 SCD applied (from Ns): No SCD contraindicated: patient refusal Pharmacological prophylaxis: heparin Lines/Catheters IV Catheter Type (from [facility]): Peripheral IV Urinary Cath still in place: No Assessment/Plan Assessment/Plan 1. 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 - Pulmonology consultation appreciated and recommending wean as tolerated. 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 Afib with RVR- resolved - Cardiology consultation appreciated and patient converted back to Sinus rhythm. - on amiodarone drip - no anticoagulation started given risk outweigh benefits given patients recent history of fall and deteriorating health since fall 3. hypothyroidism - continue levothyroxine 4. DM - A1c 7.7 - Will continue on ISS and accuchecks - Novolog 70/30 with steroids 5. HTN 6. Rheumatoid arthritis - continue on pain control as tolerated 7. Disposition - Discussed held with daughter at bedside regarding goals of care. Family okay with DNR at this time - Discussed hospice but not open yet at this time Result Diagram: 04/16/18 1204 04/16/18 1204 Results 24hrs Laboratory Tests Test 04/16/18 11:59 04/16/18 12:04 04/16/18 15:22 04/16/18 17:35 POC Venous Lactate 1.9 1.0 White Blood Count 14.3 H Red Blood Count 3.38 L Hemoglobin 10.1 L Hematocrit 34.1 L Mean Corpuscular 100.9 Volume Mean Corpuscular 29.9 Hemoglobin Mean Corpuscular 29.6 L Hemoglobin Concent Red Cell 14.4 Distribution Width Platelet Count 349 Mean Platelet Volume 8.9 Immature 0.400 Granulocytes % Neutrophils % 93.4 H Segmented 32 L Neutrophils % (Manual) Band Neutrophils % 62 H (Manual) Lymphocytes % 4.1 L Lymphocytes % 3 L (Manual) Monocytes % 1.7 Monocytes % (Manual) 1 Eosinophils % 0.1 Basophils % 0.3 Metamyelocytes % 2 H (manual) Nucleated Red Blood 0.0 Cells % Immature 0.060 H Granulocytes # Neutrophils # 13.4 H Neutrophils # 5.8 (Manual) Band Neutrophils # 8.8 H Lymphocytes (Manual) 0.4 L Lymphocytes # 0.6 L Monocytes # 0.2 L Monocytes # (Manual) 0.1 L Eosinophils # 0.0 Basophils # 0.0 Metamyelocytes # 0.2 H Nucleated Red Blood 0.0 Cells # Platelet Estimate NORMAL Anisocytosis 1+ Macrocytosis 1+ Prothrombin Time 13.7 Prothrombin Time 1.1 Ratio INR International 1.04 Normalized Ratio Activated 26.3 Partial Thromboplast Time Sodium Level 146 H Potassium Level 4.1 Chloride Level 103 Carbon Dioxide Level 38 H Anion Gap 5 Blood Urea Nitrogen 43 H Creatinine 0.52 Est Glomerular Filtrat Rate mL/min Glucose Level 273 H Hemoglobin A1c 7.7 H Calcium Level 9.7 Total Bilirubin 0.1 L Direct Bilirubin 0.00 Indirect Bilirubin 0.1 Aspartate Amino 19 Transf (AST/SGOT) Alanine 25 Aminotransferase (AL T/SGPT) Alkaline Phosphatase 75 Troponin I 0.022 Total Protein 6.1 Albumin 3.1 L Globulin 3.00 Albumin/Globulin 1.03 Ratio Bedside Glucose 292 H Test 04/16/18 21:21 04/17/18 00:23 04/17/18 05:24 04/17/18 08:08 Bedside Glucose 316 H 278 H 197 180 Subjective 24 Hr Interval Summary Free Text/Dictation Patient repeating Tylenol and Klonopin this am. Daughter at bedside. Failed swallow evaluation this am and discussed possible need for NG tube which daughter not keen on. Exam/Review of Systems Vital Signs Vitals Vital Signs Date Temp Pulse Resp B/P (MAP) Pulse Ox O2 O2 Flow FiO2 Time Delivery Rate 04/17/18 Vapotherm 07:51 04/17/18 97.6 75 18 181/77 95 07:23 (111) 04/17/18 65 04:20 04/16/18 25.0 23:18 Intake and Output 04/16/18 04/16/18 04/17/18 1515:00 23:00 07:00 IntakeIntake Total 50 ml 520 ml BalanceBalance 50 ml 520 ml Exam General: Patient more comfortable this am but only repeating Tylenol and Klonopin. coughed after ice chips Neck: Supple with full range of motion. No rigidity or meningismus Chest: Nontender to palpation Lungs: Diminished diffusely with coarse breath sounds but no wheezing Heart: Normal S1-S2, sinus rhythm, regular rate. No overt murmurs appreciated on auscultation Abdomen: Soft , nontender, nondistended , bowel sounds are present. No guarding no rebound tenderness , No masses or organomegaly. No costovertebral temporal angle mass Extremities: no cyanosis, clubbing, or edema Medications Medications Current Medications Cholecalciferol (Vitamin D) 1,000 unit DAILY PO ; Start 04/17/18 at 09:00 Albuterol/ Ipratropium (Duoneb) 3 ml Q6H RESP THERAPY PRN NEB WHEEZING AND SOB Last administered on 04/16/18at 23:18; Admin Dose 3 ML; Start 04/16/18 at 14:00 Magnesium Hydroxide (Milk Of Mag) 30 ml DAILY PRN PO CONSTIPATION; Start 04/16/18 at 14:00 Meclizine HCl (Antivert) 25 mg Q8H PRN PO DIZZINESS; Start 04/16/18 at 14:00 Sertraline HCl (Zoloft) 50 mg DAILY PO ; Start 04/17/18 at 09:00 Tramadol HCl (Ultram) 50 mg Q6H PRN PO PAIN Last administered on 04/16/18at 21:30; Admin Dose 50 MG; Start 04/16/18 at 14:00 IV Flush (NS 3 ml) 3 ml PER PROTOCOL IV ; Start 04/16/18 at 14:30 Ondansetron HCl (Zofran Inj) 4 mg Q6H PRN IV NAUSEA AND/OR VOMITING; Start 04/16/18 at 14:30 Enoxaparin Sodium (Lovenox) 30 mg DAILY SC Last administered on 04/17/18at 08:21; Admin Dose 30 MG; Start 04/17/18 at 09:00 Cefepime HCl 50 ml @ 100 mls/hr Q24H IVPB Last administered on 04/16/18 21:25; Admin Dose 100 MLS/HR; Start 04/16/18 at 21:00 Levalbuterol (Xopenex Neb) 0.63 mg Q6H RESP THERAPY HHN Last administered on 04/16/18at 20:58; Admin Dose 0.63 MG; Start 04/16/18 at 20:00 Methylprednisolone Sodium Succinate (Solu-Medrol) 40 mg Q12 IV Last administered on 04/17/18at 08:20; Admin Dose 40 MG; Start 04/16/18 at 21:00 Insulin Aspart Prota 70%/Aspart 30% (Novolog Mix (70/ 30) Flexpen) 10 unit BID SC Last administered on 04/17/18at 08:16; Admin Dose 10 UNIT; Start 04/16/18 at 21:00 Miscellaneous Information 1 ea NOTE XX ; Start 04/16/18 at 16:30 Glucose (Glutose) 15 gm Q15M PRN PO DECREASED GLUCOSE; Start 04/16/18 at 16:30 Glucose (Glutose) 22.5 gm Q15M PRN PO DECREASED GLUCOSE; Start 04/16/18 at 16:30 Dextrose (D50w Syringe) 25 ml Q15M PRN IV DECREASED GLUCOSE; Start 04/16/18 at 16:30 Dextrose (D50w Syringe) 50 ml Q15M PRN IV DECREASED GLUCOSE; Start 04/16/18 at 16:30 Glucagon (Glucagen) 1 mg Q15M PRN IM DECREASED GLUCOSE; Start 04/16/18 at 16:30 Glucose (Glutose) 15 gm Q15M PRN BUCCAL DECREASED GLUCOSE; Start 04/16/18 at 16:30 Amiodarone HCl 900 mg/Dextrose 500 ml @ 0 mls/hr Q0M IV Last administered on 04/16/18at 18:27; Admin Dose 33.4 MLS/HR; Start 04/16/18 at 17:30 Acetaminophen (Tylenol Liquid) 650 mg Q6H PRN PO PAIN LEVEL 1-3 OR FEVER; Start 04/16/18 at 20:00 Aspirin (Aspirin) 325 mg DAILY PO ; Start 04/17/18 at 09:00 Multivitamins (Multivitamin) 30 ml DAILY PO ; Start 04/17/18 at 09:00 Acetylcysteine (Mucomyst) 3 ml Q6H RESP THERAPY NEB ; Start 04/17/18 at 02:00 Lorazepam (Ativan) 0.5 mg Q8H PRN IV Anxiety Last administered on 04/17/18at 00:23; Admin Dose 0.5 MG; Start 04/16/18 at 23:00 Sodium Chloride 1,000 ml @ 50 mls/hr Q20H IV Last administered on 04/16/18at 22:30; Admin Dose 50 MLS/HR; Start 04/16/18 at 23:00 Insulin Aspart (Novolog Insulin Pen) NOVOLOG *MILD* ALGORI... Q4 SC Last a dministered on 04/17/18at 08:16; Admin Dose 1 UNIT; Start 04/17/18 at 01:00 Levothyroxine Sodium (Synthroid Iv) 62.5 mcg DAILY@06 IV Last administered on 04/17/18at 06:00; Admin Dose 62.5 MCG; Start 04/17/18 at 06:00 Pantoprazole (Protonix Iv) 40 mg DAILY@06 IV Last administered on 04/17/18at 06:28; Admin Dose 40 MG; Start 04/17/18 at 06:00 Diltiazem HCl 125 ml @ 12.5 mls/hr Q10H IV Last administered on 04/17/18at 07:10; Admin Dose 12.5 MLS/HR; Start 04/17/18 at 06:00 CHASE LIM MD Apr 17, 2018 08:27
[2018-04-17] MEDS ORDERED: ASPIRIN (EC) 325 MG TAB PO SCH (09:00)
[2018-04-17] MEDS ORDERED: MULTIVITAMINS THERAPEUTIC TAB PO SCH (09:00)
--- NOTE | 2018-04-17 09:48 | CONS ---
Date/Time of Note Date/Time of Note DATE: 04/17/18 TIME: 09:44 Assessment/Plan Assessment/Plan Assessment/Plan Chest x-ray showing significant interstitial lung disease. CT chest showing extensive groundglass opacities with micronodules with lower lobe predominance. Patient is currently on high flow nasal cannula at 65% FiO2 25 L/min. Assessment recommendations; 1. 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 Maintained on high flow nasal cannula. 2. History of recent hip fracture. 3. History of hypertension, hypothyroidism, and atrial fibrillation. 4. Diabetes. Continue current supportive care. Wean down FiO2 as tolerated. I did have a detailed discussion with the patient's daughter at bedside and apprised her of likely overall poor prognosis, patient's family is leaning towards hospice evaluation. They also also want to initiate a DNR status. Result Diagram: 04/16/18 1204 04/16/18 1204 Results 24hrs Laboratory Tests Test 04/16/18 11:59 04/16/18 12:04 04/16/18 15:22 04/16/18 17:35 POC Venous Lactate 1.9 1.0 White Blood Count 14.3 H Red Blood Count 3.38 L Hemoglobin 10.1 L Hematocrit 34.1 L Mean Corpuscular 100.9 Volume Mean Corpuscular 29.9 Hemoglobin Mean Corpuscular 29.6 L Hemoglobin Concent Red Cell 14.4 Distribution Width Platelet Count 349 Mean Platelet Volume 8.9 Immature 0.400 Granulocytes % Neutrophils % 93.4 H Segmented 32 L Neutrophils % (Manual) Band Neutrophils % 62 H (Manual) Lymphocytes % 4.1 L Lymphocytes % 3 L (Manual) Monocytes % 1.7 Monocytes % (Manual) 1 Eosinophils % 0.1 Basophils % 0.3 Metamyelocytes % 2 H (manual) Nucleated Red Blood 0.0 Cells % Immature 0.060 H Granulocytes # Neutrophils # 13.4 H Neutrophils # 5.8 (Manual) Band Neutrophils # 8.8 H Lymphocytes (Manual) 0.4 L Lymphocytes # 0.6 L Monocytes # 0.2 L Monocytes # (Manual) 0.1 L Eosinophils # 0.0 Basophils # 0.0 Metamyelocytes # 0.2 H Nucleated Red Blood 0.0 Cells # Platelet Estimate NORMAL Anisocytosis 1+ Macrocytosis 1+ Prothrombin Time 13.7 Prothrombin Time 1.1 Ratio INR International 1.04 Normalized Ratio Activated 26.3 Partial Thromboplast Time Sodium Level 146 H Potassium Level 4.1 Chloride Level 103 Carbon Dioxide Level 38 H Anion Gap 5 Blood Urea Nitrogen 43 H Creatinine 0.52 Est Glomerular Filtrat Rate mL/min Glucose Level 273 H Hemoglobin A1c 7.7 H Calcium Level 9.7 Total Bilirubin 0.1 L Direct Bilirubin 0.00 Indirect Bilirubin 0.1 Aspartate Amino 19 Transf (AST/SGOT) Alanine 25 Aminotransferase (AL T/SGPT) Alkaline Phosphatase 75 Troponin I 0.022 Total Protein 6.1 Albumin 3.1 L Globulin 3.00 Albumin/Globulin 1.03 Ratio Bedside Glucose 292 H Test 04/16/18 21:21 04/17/18 00:23 04/17/18 05:24 04/17/18 08:08 Bedside Glucose 316 H 278 H 197 180 Consultation Date/Type/Reason Admit Date/Time Apr 16, 2018 at 13:54 Date of Consultation: Apr 17, 2018 Type of Consult Pulmonary History of presenting illness; patient is an 87-year-old lady who has been transferred over from rehab because of hypoxemia. Upon evaluation chest x-ray and CT scan of chest were done which is showing extensive groundglass opacities with nodular changes. Patient has maintained her high flow nasal cannula with stable O2 saturation. The patient is a very poor historian and history was obtained from medical record as well as from patient's daughter who was present in the room. According to the patient's daughter the patient was doing fine until a few months ago when she sustained a fall resulting in hip fracture and ever since then the patient has had a progressive downhill course patient also has been on home oxygen for the last 2 months. The patient appears awake but lethargic. Was able to answer some questions. Past medical history; 1. 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 2. History of chronic atrial fibrillation. 3. Hypertension. 4. Recent hip fracture. 5. Chronic hypoxemia. 6. Diabetes. Medications; reviewed. Allergies; codeine. Social history; patient has been a lifelong non-smoker. Family history; noncontributory. Patient is with her son. Occupational history; patient has been a housewife. Review of system; difficult to obtain. General exam; elderly female, on high flow nasal cannula. Currently no distress. Past Medical History Medical History: hypertension, hypothyroid, other (high blood sugar secondary to steroids ) Medications Current Medications Cholecalciferol (Vitamin D) 1,000 unit DAILY PO ; Start 04/17/18 at 09:00 Albuterol/ Ipratropium (Duoneb) 3 ml Q6H RESP THERAPY PRN NEB WHEEZING AND SOB Last administered on 04/16/18 23:18; Admin Dose 3 ML; Start 04/16/18 at 14:00 Magnesium Hydroxide (Milk Of Mag) 30 ml DAILY PRN PO CONSTIPATION; Start 04/16/18 at 14:00 Meclizine HCl (Antivert) 25 mg Q8H PRN PO DIZZINESS; Start 04/16/18 at 14:00 Sertraline HCl (Zoloft) 50 mg DAILY PO ; Start 04/17/18 at 09:00 Tramadol HCl (Ultram) 50 mg Q6H PRN PO PAIN Last administered on 04/16/18 21:30; Admin Dose 50 MG; Start 04/16/18 at 14:00 IV Flush (NS 3 ml) 3 ml PER PROTOCOL IV ; Start 04/16/18 at 14:30 Ondansetron HCl (Zofran Inj) 4 mg Q6H PRN IV NAUSEA AND/OR VOMITING; Start 04/16/18 at 14:30 Enoxaparin Sodium (Lovenox) 30 mg DAILY SC Last administered on 04/17/18at 08:21; Admin Dose 30 MG; Start 04/17/18 at 09:00 Cefepime HCl 50 ml @ 100 mls/hr Q24H IVPB Last administered on 04/16/18 21:25; Admin Dose 100 MLS/HR; Start 04/16/18 at 21:00 Levalbuterol (Xopenex Neb) 0.63 mg Q6H RESP THERAPY HHN Last administered on 04/17/18 08:34; Admin Dose 0.63 MG; Start 04/16/18 at 20:00 Methylprednisolone Sodium Succinate (Solu-Medrol) 40 mg Q12 IV Last administered on 04/17/18 08:20; Admin Dose 40 MG; Start 04/16/18 at 21:00 Insulin Aspart Prota 70%/Aspart 30% (Novolog Mix (70/ 30) Flexpen) 10 unit BID SC Last administered on 04/17/18 08:16; Admin Dose 10 UNIT; Start 04/16/18 at 21:00 Miscellaneous Information 1 ea NOTE XX ; Start 04/16/18 at 16:30 Glucose (Glutose) 15 gm Q15M PRN PO DECREASED GLUCOSE; Start 04/16/18 at 16:30 Glucose (Glutose) 22.5 gm Q15M PRN PO DECREASED GLUCOSE; Start 04/16/18 at 16:30 Dextrose (D50w Syringe) 25 ml Q15M PRN IV DECREASED GLUCOSE; Start 04/16/18 at 16:30 Dextrose (D50w Syringe) 50 ml Q15M PRN IV DECREASED GLUCOSE; Start 04/16/18 at 16:30 Glucagon (Glucagen) 1 mg Q15M PRN IM DECREASED GLUCOSE; Start 04/16/18 at 16:30 Glucose (Glutose) 15 gm Q15M PRN BUCCAL DECREASED GLUCOSE; Start 04/16/18 at 16:30 Amiodarone HCl 900 mg/Dextrose 500 ml @ 0 mls/hr Q0M IV Last administered on 04/16/18at 18:27; Admin Dose 33.4 MLS/HR; Start 04/16/18 at 17:30 Acetaminophen (Tylenol Liquid) 650 mg Q6H PRN PO PAIN LEVEL 1-3 OR FEVER; Start 04/16/18 at 20:00 Aspirin (Aspirin) 325 mg DAILY PO ; Start 04/17/18 at 09:00 Multivitamins (Multivitamin) 30 ml DAILY PO ; Start 04/17/18 at 09:00 Acetylcysteine (Mucomyst) 3 ml Q6H RESP THERAPY NEB Last administered on 04/17/18at 08:34; Admin Dose 3 ML; Start 04/17/18 at 02:00 Lorazepam (Ativan) 0.5 mg Q8H PRN IV Anxiety Last administered on 04/17/18at 00:23; Admin Dose 0.5 MG; Start 04/16/18 at 23:00 Sodium Chloride 1,000 ml @ 50 mls/hr Q20H IV Last administered on 04/16/18at 22:30; Admin Dose 50 MLS/HR; Start 04/16/18 at 23:00 Insulin Aspart (Novolog Insulin Pen) NOVOLOG *MILD* ALGORI... Q4 SC Last administered on 04/17/18at 08:16; Admin Dose 1 UNIT; Start 04/17/18 at 01:00 Levothyroxine Sodium (Synthroid Iv) 62.5 mcg DAILY@06 IV Last administered on 04/17/18at 06:00; Admin Dose 62.5 MCG; Start 04/17/18 at 06:00 Pantoprazole (Protonix Iv) 40 mg DAILY@06 IV Last administered on 04/17/18at 06:28; Admin Dose 40 MG; Start 04/17/18 at 06:00 Diltiazem HCl 125 ml @ 12.5 mls/hr Q10H IV Last administered on 04/17/18at 07:10; Admin Dose 12.5 MLS/HR; Start 04/17/18 at 06:00 Allergies: Coded Allergies: codeine (Verified Allergy, Unknown, 04/16/18) Past Surgical History Past Surgical Hx: other (unable to obtain) Social History Alcohol Use: none Smoking Status: Unknown if ever smoked Drug Use: none Exam/Review of Systems Vital Signs Vitals Vital Signs Date Temp Pulse Resp B/P (MAP) Pulse Ox O2 O2 Flow FiO2 Time Delivery Rate 04/17/18 96 65 08:43 04/17/18 88 08:40 04/17/18 20 25.0 08:40 04/17/18 Vapotherm 07:51 04/17/18 97.6 181/77 07:23 (111) Intake and Output 04/16/18 04/16/18 04/17/18 1515:00 23:00 07:00 IntakeIntake Total 50 ml 520 ml BalanceBalance 50 ml 520 ml Exam H EENT exam; supple neck, no JVD. No lymphadenopathy. Midline trachea. No thyromegaly. Patient is edentulous. No neck masses. Chest exam; diminished breath sounds bilaterally. S1-S2 audible, no murmurs. Irregular rhythm. Abdomen exam; soft, no organomegaly. Bowel sounds audible. Scaphoid. Nonte nder. Extremity exam; no edema. REGISTERED PRIVATE DUTY NURSE exam; she is awake and answers some questions appropriately. Appearing significant pathology. Medications Medications Current Medications Cholecalciferol (Vitamin D) 1,000 unit DAILY PO ; Start 04/17/18 at 09:00 Albuterol/ Ipratropium (Duoneb) 3 ml Q6H RESP THERAPY PRN NEB WHEEZING AND SOB Last administered on 04/16/18at 23:18; Admin Dose 3 ML; Start 04/16/18 at 14:00 Magnesium Hydroxide (Milk Of Mag) 30 ml DAILY PRN PO CONSTIPATION; Start 04/16/18 at 14:00 Meclizine HCl (Antivert) 25 mg Q8H PRN PO DIZZINESS; Start 04/16/18 at 14:00 Sertraline HCl (Zoloft) 50 mg DAILY PO ; Start 04/17/18 at 09:00 Tramadol HCl (Ultram) 50 mg Q6H PRN PO PAIN Last administered on 04/16/18at 21:30; Admin Dose 50 MG; Start 04/16/18 at 14:00 IV Flush (NS 3 ml) 3 ml PER PROTOCOL IV ; Start 04/16/18 at 14:30 Ondansetron HCl (Zofran Inj) 4 mg Q6H PRN IV NAUSEA AND/OR VOMITING; Start 04/16/18 at 14:30 Enoxaparin Sodium (Lovenox) 30 mg DAILY SC Last administered on 04/17/18at 08:21; Admin Dose 30 MG; Start 04/17/18 at 09:00 Cefepime HCl 50 ml @ 100 mls/hr Q24H IVPB Last administered on 04/16/18at 21:25; Admin Dose 100 MLS/HR; Start 04/16/18 at 21:00 Levalbuterol (Xopenex Neb) 0.63 mg Q6H RESP THERAPY HHN Last administered on 04/17/18at 08:34; Admin Dose 0.63 MG; Start 04/16/18 at 20:00 Methylprednisolone Sodium Succinate (Solu-Medrol) 40 mg Q12 IV Last administered on 04/17/18at 08:20; Admin Dose 40 MG; Start 04/16/18 at 21:00 Insulin Aspart Prota 70%/Aspart 30% (Novolog Mix (70/ 30) Flexpen) 10 unit BID S C Last administered on 04/17/18at 08:16; Admin Dose 10 UNIT; Start 04/16/18 at 21:00 Miscellaneous Information 1 ea NOTE XX ; Start 04/16/18 at 16:30 Glucose (Glutose) 15 gm Q15M PRN PO DECREASED GLUCOSE; Start 04/16/18 at 16:30 Glucose (Glutose) 22.5 gm Q15M PRN PO DECREASED GLUCOSE; Start 04/16/18 at 16:30 Dextrose (D50w Syringe) 25 ml Q15M PRN IV DECREASED GLUCOSE; Start 04/16/18 at 16:30 Dextrose (D50w Syringe) 50 ml Q15M PRN IV DECREASED GLUCOSE; Start 04/16/18 at 16:30 Glucagon (Glucagen) 1 mg Q15M PRN IM DECREASED GLUCOSE; Start 04/16/18 at 16:30 Glucose (Glutose) 15 gm Q15M PRN BUCCAL DECREASED GLUCOSE; Start 04/16/18 at 16:30 Amiodarone HCl 900 mg/Dextrose 500 ml @ 0 mls/hr Q0M IV Last administered on 04/16/18at 18:27; Admin Dose 33.4 MLS/HR; Start 04/16/18 at 17:30 Acetaminophen (Tylenol Liquid) 650 mg Q6H PRN PO PAIN LEVEL 1-3 OR FEVER; Start 04/16/18 at 20:00 Aspirin (Aspirin) 325 mg DAILY PO ; Start 04/17/18 at 09:00 Multivitamins (Multivitamin) 30 ml DAILY PO ; Start 04/17/18 at 09:00 Acetylcysteine (Mucomyst) 3 ml Q6H RESP THERAPY NEB Last administered on 04/17at 08:34; Admin Dose 3 ML; Start 04/17/18 at 02:00 Lorazepam (Ativan) 0.5 mg Q8H PRN IV Anxiety Last administered on 04/17/18at 00:23; Admin Dose 0.5 MG; Start 04/16/18 at 23:00 Sodium Chloride 1,000 ml @ 50 mls/hr Q20H IV Last administered on 04/16/18at 22:30; Admin Dose 50 MLS/HR; Start 04/16/18 at 23:00 Insulin Aspart (Novolog Insulin Pen) NOVOLOG *MILD* ALGORI... Q4 SC Last administered on 04/17/18at 08:16; Admin Dose 1 UNIT; Start 04/17/18 at 01:00 Levothyroxine Sodium (Synthroid Iv) 62.5 mcg DAILY@06 IV Last administered on 04/17/18at 06:00; Admin Dose 62.5 MCG; Start 04/17/18 at 06:00 Pantoprazole (Protonix Iv) 40 mg DAILY@06 IV Last administered on 04/17/18at 06:28; Admin Dose 40 MG; Start 04/17/18 at 06:00 Diltiazem HCl 125 ml @ 12.5 mls/hr Q10H IV Last administered on 04/17/18at 07:10; Admin Dose 12.5 MLS/HR; Start 04/17/18 at 06:00 JIMMY DONOHUE Apr 17, 2018 09:48
[2018-04-17] MEDS ORDERED: ACETAMINOPHEN 650 MG SUPP PR PRN (11:30)
[2018-04-17] MEDS ORDERED: LORAZEPAM 2 MG INJ IV PRN (11:30)
[2018-04-17] MEDS: DEXTROSE 5%-0.45% NACL 1,000 ML IV SCH (11:51)
[2018-04-17] MEDS: ACETAMINOPHEN 1000MG/100ML IV 100 ML IVPB SCH ×4 (12:31→23:44)
--- NOTE | 2018-04-17 16:07 | CONS ---
Date/Time of Note Date/Time of Note DATE: 04/17/18 TIME: 16:07 Assessment/Plan Assessment/Plan Assessment/Plan She is a non-historian currently in respiratory distress all information is taken from medical records and from speaking to her son at the bedside. Patient is a history of increasing confusion and altered mental status since undergoing a ORIF of the hip approximately 1 month prior to this hospitalization. Patient became unresponsive at the long term unit severe respiratory distress and was transferred to [facility] for further care. Son states that she was able to do all of her activities of daily living prior to hip repair. And since that time has had had a steady decline in her cognitive abilities. She is admitted now with acute respiratory distress secondary to either a neoplastic process or pneumonia she also has A. fib with RVR on amiodarone drip. Other comorbid medical problems include hypothyroidism type 2 diabetes hypertension. She is a full code I spoke with patient's son at the bedside and explained to him that in my opinion patient is living hour to hour at this point, he agrees. I explained to the son that I believe that she will probably pass away tonight although he was hoping that she would stay alive until the rest of the family members come into town. I explained that if she stops breathing we would have to do chest compression cardioversion and intubation at this would be a morbid painful end of life. He understood and agrees to change her code to DO NOT RESUSCITATE. I will continue to follow support family members Decision makers are 3 siblings Son is give me background information patient that she was doing fine could do all her ADLs prior to hospitalization for hip repair They have a clear understanding of her underlying critical medical condition both his son who is at the bedside and both sisters were on their way Is that she does not suffer There are no cultural issues or communication issues that are apparent or need to be addressed further at this time family members are very happy with the quality of care that she is received here Goals of care DO NOT RESUSCITATE continue with this level of care until family members arrive and at that time will in all likelihood switch to comfort care measures only. Analysis extremely grim. Symptom management will be addressed There are no psychosocial social or spiritual issues or ethical issues that need to be addressed. Initial Consultation Hx Result Diagram: 04/17/18 1338 04/17/18 1338 Results 24hrs Laboratory Tests Test 04/16/18 17:35 04/16/18 21:21 04/17/18 00:23 04/17/18 05:24 Bedside Glucose 292 H 316 H 278 H 197 Test 04/17/18 08:08 04/17/18 13:08 04/17/18 13:38 Bedside Glucose 180 197 White Blood Count 13.8 H Red Blood Count 3.05 L Hemoglobin 9.2 L Hematocrit 30.9 L Mean Corpuscular 101.3 H Volume Mean Corpuscular 30.2 Hemoglobin Mean Corpuscular 29.8 L Hemoglobin Concent Red Cell 14.6 H Distribution Width Platelet Count 336 Mean Platelet Volume 9.4 Immature 0.500 H Granulocytes % Neutrophils % 93.4 H Lymphocytes % 4.9 L Monocytes % 1.1 Eosinophils % 0.0 Basophils % 0.1 Nucleated Red Blood 0.0 Cells % Immature 0.070 H Granulocytes # Neutrophils # 12.9 H Lymphocytes # 0.7 L Monocytes # 0.2 L Eosinophils # 0.0 Basophils # 0.0 Nucleated Red Blood 0.0 Cells # Sodium Level 145 H Potassium Level 3.7 Chloride Level 102 Carbon Dioxide Level 40 H Anion Gap 3 L Blood Urea Nitrogen 40 H Creatinine 0.54 Est Glomerular Filtrat Rate mL/min Glucose Level 177 Calcium Level 9.1 Magnesium Level 1.5 L Total Bilirubin 0.2 Direct Bilirubin 0.00 Indirect Bilirubin 0.2 Aspartate Amino 17 Transf (AST/SGOT) Alanine 22 Aminotransferase (AL T/SGPT) Alkaline Phosphatase 64 Total Protein 5.9 L Albumin 2.7 L Globulin 3.20 Albumin/Globulin 0.84 Ratio Thyroid Stimulating 0.892 Hormone (TSH) Consultation Date/Type/Reason Admit Date/Time Apr 16, 2018 at 13:54 Past Medical History Medical History: hypertension, hypothyroid, other (high blood sugar secondary to steroids ) Medications Current Medications Cholecalciferol (Vitamin D) 1,000 unit DAILY PO ; Start 04/17/18 at 09:00 Albuterol/ Ipratropium (Duoneb) 3 ml Q6H RESP THERAPY PRN NEB WHEEZING AND SOB Last administered on 04/16/18at 23:18; Admin Dose 3 ML; Start 04/16/18 at 14:00 Magnesium Hydroxide (Milk Of Mag) 30 ml DAILY PRN PO CONSTIPATION; Start 04/16/18 at 14:00 Meclizine HCl (Antivert) 25 mg Q8H PRN PO DIZZINESS; Start 04/16/18 at 14:00 Sertraline HCl (Zoloft) 50 mg DAILY PO ; Start 04/17/18 at 09:00 Tramadol HCl (Ultram) 50 mg Q6H PRN PO PAIN Last administered on 04/16/18at 21:30; Admin Dose 50 MG; Start 04/16/18 at 14:00 IV Flush (NS 3 ml) 3 ml PER PROTOCOL IV ; Start 04/16/18 at 14:30 Ondansetron HCl (Zofran Inj) 4 mg Q6H PRN IV NAUSEA AND/OR VOMITING; Start 04/16/18 at 14:30 Enoxaparin Sodium (Lovenox) 30 mg DAILY SC Last administered on 04/17/18at 08:21; Admin Dose 30 MG; Start 04/17/18 at 09:00 Cefepime HCl 50 ml @ 100 mls/hr Q24H IVPB Last administered on 04/16/18at 21: 25; Admin Dose 100 MLS/HR; Start 04/16/18 at 21:00 Levalbuterol (Xopenex Neb) 0.63 mg Q6H RESP THERAPY HHN Last administered on 04/17/18at 14:48; Admin Dose 0.63 MG; Start 04/16/18 at 20:00 Methylprednisolone Sodium Succinate (Solu-Medrol) 40 mg Q12 IV Last administered on 04/17/18at 08:20; Admin Dose 40 MG; Start 04/16/18 at 21:00 Insulin Aspart Prota 70%/Aspart 30% (Novolog Mix (70/ 30) Flexpen) 10 unit BID SC Last administered on 04/17/18at 08:16; Admin Dose 10 UNIT; Start 04/16/18 at 21:00 Miscellaneous Information 1 ea NOTE XX ; Start 04/16/18 at 16:30 Glucose (Glutose) 15 gm Q15M PRN PO DECREASED GLUCOSE; Start 04/16/18 at 16:30 Glucose (Glutose) 22.5 gm Q15M PRN PO DECREASED GLUCOSE; Start 04/16/18 at 16:30 Dextrose (D50w Syringe) 25 ml Q15M PRN IV DECREASED GLUCOSE; Start 04/16/18 at 16:30 Dextrose (D50w Syringe) 50 ml Q15M PRN IV DECREASED GLUCOSE; Start 04/16/18 at 16:30 Glucagon (Glucagen) 1 mg Q15M PRN IM DECREASED GLUCOSE; Start 04/16/18 at 16:30 Glucose (Glutose) 15 gm Q15M PRN BUCCAL DECREASED GLUCOSE; Start 04/16/18 at 16:30 Amiodarone HCl 900 mg/Dextrose 500 ml @ 0 mls/hr Q0M IV Last administered on 04/16/18at 18:27; Admin Dose 33.4 MLS/HR; Start 04/16/18 at 17:30 Acetaminophen (Tylenol Liquid) 650 mg Q6H PRN PO PAIN LEVEL 1-3 OR FEVER; Start 04/16/18 at 20:00 Aspirin (Aspirin) 325 mg DAILY PO ; Start 04/17/18 at 09:00 Multivitamins (Multivitamin) 30 ml DAILY PO ; Start 04/17/18 at 09:00 Acetylcysteine (Mucomyst) 3 ml Q6H RESP THERAPY NEB Last administered on 04/17/18at 14:48; Admin Dose 3 ML; Start 04/17/18 at 02:00 Insulin Aspart (Novolog Insulin Pen) NOVOLOG *MILD* ALGORI... Q4 SC Last administered on 04/17/18at 13:13; Admin Dose 2 UNIT; Start 04/17/18 at 01:00 Levothyroxine Sodium (Synthroid Iv) 62.5 mcg DAILY@06 IV Last administered on 04/17/18at 06:00; Admin Dose 62.5 MCG; Start 04/17/18 at 06:00 Pantoprazole (Protonix Iv) 40 mg DAILY@06 IV Last administered on 04/17/18at 06:28; Admin Dose 40 MG; Start 04/17/18 at 06:00 Dextrose/Sodium Chloride 1,000 ml @ 50 mls/hr Q20H IV Last administered on 04/17/18at 11:51; Admin Dose 50 MLS/HR; Start 04/17/18 at 11:00 Acetaminophen (Tylenol Supp) 650 mg Q4H PRN [place] MILD PAIN(1-3) OR TEMP>38C; Start 04/17/18 at 11:30 Acetaminophen 100 ml @ 400 mls/hr Q6 IVPB Last administered on 04/17/18at 12:31; Admin Dose 400 MLS/HR; Start 04/17/18 at 12:00; Stop 04/18/18 at 11:59 Lorazepam (Ativan) 0.5 mg Q8H PRN IV ANXIETY; Start 04/17/18 at 11:30 Allergies: Coded Allergies: codeine (Verified Allergy, Unknown, 04/16/18) Past Surgical History Past Surgical Hx: other (unable to obtain) Social History Alcohol Use: none Smoking Status: Unknown if ever smoked Drug Use: none Exam/Review of Systems Vital Signs Vitals Vital Signs Date Temp Pulse Resp B/P (MAP) Pulse Ox O2 O2 Flow FiO2 Time Delivery Rate 04/17/18 98.2 83 19 129/75 94 15:48 (93) 04/17/18 60 14:55 04/17/18 25.0 08:40 04/17/18 Vapotherm 07:51 Intake and Output 04/16/18 04/16/18 04/17/18 1515:00 23:00 07:00 IntakeIntake Total 50 ml 520 ml BalanceBalance 50 ml 520 ml Medications Medications Current Medications Cholecalciferol (Vitamin D) 1,000 unit DAILY PO ; Start 04/17/18 at 09:00 Albuterol/ Ipratropium (Duoneb) 3 ml Q6H RESP THERAPY PRN NEB WHEEZING AND SOB Last administered on 04/16/18at 23:18; Admin Dose 3 ML; Start 04/16/18 at 14:00 Magnesium Hydroxide (Milk Of Mag) 30 ml DAILY PRN PO CONSTIPATION; Start 04/16/18 at 14:00 Meclizine HCl (Antivert) 25 mg Q8H PRN PO DIZZINESS; Start 04/16/18 at 14:00 Sertraline HCl (Zoloft) 50 mg DAILY PO ; Start 04/17/18 at 09:00 Tramadol HCl (Ultram) 50 mg Q6H PRN PO PAIN Last administered on 04/16/18at 21:30; Admin Dose 50 MG; Start 04/16/18 at 14:00 IV Flush (NS 3 ml) 3 ml PER PROTOCOL IV ; Start 04/16/18 at 14:30 Ondansetron HCl (Zofran Inj) 4 mg Q6H PRN IV NAUSEA AND/OR VOMITING; Start 04/16/18 at 14:30 Enoxaparin Sodium (Lovenox) 30 mg DAILY SC Last administered on 04/17/18at 08:21; Admin Dose 30 MG; Start 04/17/18 at 09:00 Cefepime HCl 50 ml @ 100 mls/hr Q24H IVPB Last administered on 04/16/18at 21:25; Admin Dose 100 MLS/HR; Start 04/16/18 at 21:00 Levalbuterol (Xopenex Neb) 0.63 mg Q6H RESP THERAPY HHN Last administered on 04/17/18at 14:48; Admin Dose 0.63 MG; Start 04/16/18 at 20:00 Methylprednisolone Sodium Succinate (Solu-Medrol) 40 mg Q12 IV Last administered on 04/17/18at 08:20; Admin Dose 40 MG; Start 04/16/18 at 21:00 Insulin Aspart Prota 70%/Aspart 30% (Novolog Mix (70/ 30) Flexpen) 10 unit BID SC Last administered on 04/17/18at 08:16; Admin Dose 10 UNIT; Start 04/16/18 at 21:00 Miscellaneous Information 1 ea NOTE XX ; Start 04/16/18 at 16:30 Glucose (Glutose) 15 gm Q15M PRN PO DECREASED GLUCOSE; Start 04/16/18 at 16:30 Glucose (Glutose) 22.5 gm Q15M PRN PO DECREASED GLUCOSE; Start 04/16/18 at 16:30 Dextrose (D50w Syringe) 25 ml Q15M PRN IV DECREASED GLUCOSE; Start 04/16/18 at 16:30 Dextrose (D50w Syringe) 50 ml Q15M PRN IV DECREASED GLUCOSE; Start 04/16/18 at 16:30 Glucagon (Glucagen) 1 mg Q15M PRN IM DECREASED GLUCOSE; Start 04/16/18 at 16:30 Glucose (Glutose) 15 gm Q15M PRN BUCCAL DECREASED GLUCOSE; Start 04/16/18 at 16:30 Amiodarone HCl 900 mg/Dextrose 500 ml @ 0 mls/hr Q0M IV Last administered on 04/16/18at 18:27; Admin Dose 33.4 MLS/HR; Start 04/16/18 at 17:30 Acetaminophen (Tylenol Liquid) 650 mg Q6H PRN PO PAIN LEVEL 1-3 OR FEVER; Start 04/16/18 at 20:00 Aspirin (Aspirin) 325 mg DAILY PO ; Start 04/17/18 at 09:00 Multivitamins (Multivitamin) 30 ml DAILY PO ; Start 04/17/18 at 09:00 Acetylcysteine (Mucomyst) 3 ml Q6H RESP THERAPY NEB Last administered on 04/17/18at 14:48; Admin Dose 3 ML; Start 04/17/18 at 02:00 Insulin Aspart (Novolog Insulin Pen) NOVOLOG *MILD* ALGORI... Q4 SC Last administered on 04/17/18at 13:13; Admin Dose 2 UNIT; Start 04/17/18 at 01:00 Levothyroxine Sodium (Synthroid Iv) 62.5 mcg DAILY@06 IV Last administered on 04/17/18at 06:00; Admin Dose 62.5 MCG; Start 04/17/18 at 06:00 Pantoprazole (Protonix Iv) 40 mg DAILY@06 IV Last administered on 04/17/18at 06 :28; Admin Dose 40 MG; Start 04/17/18 at 06:00 Dextrose/Sodium Chloride 1,000 ml @ 50 mls/hr Q20H IV Last administered on 04/17/18at 11:51; Admin Dose 50 MLS/HR; Start 04/17/18 at 11:00 Acetaminophen (Tylenol Supp) 650 mg Q4H PRN [place] MILD PAIN(1-3) OR TEMP>38C; Start 04/17/18 at 11:30 Acetaminophen 100 ml @ 400 mls/hr Q6 IVPB Last administered on 04/17/18at 12:31; Admin Dose 400 MLS/HR; Start 04/17/18 at 12:00; Stop 04/18/18 at 11:59 Lorazepam (Ativan) 0.5 mg Q8H PRN IV ANXIETY; Start 04/17/18 at 11:30 RADHA GUEVARA Apr 17, 2018 16:07
--- NOTE | 2018-04-17 16:40 | RADRPT ---
Echocardiogram Report Patient Name: YAMIL GARVEY Gender: Female Date: 1930 Study Date: 17-Apr-2018 Finish Sander: [facility] Location: 632 Ref. Physician: BRIAN FISHER Quality: Adequate Procedures: Transthoracic echocardiogram with complete 2D, M-Mode, and doppler examination. Indications: Atrial Fibrillation, resp failure. 2D/M Mode Doppler Measurement Value Normal Ranges Measurement Value Normal Ranges LVIDd 2D 2.5 3.5 - 5.6 cm CORBIN Vmax 1.7 cm2 LVIDs 2D 1.7 2.1 - 4.1 cm CORBIN VTI 2.0 cm2 FS 2D 32.8 % AV Mean Frankie 1.5 m/sec LVPWd 2D 1.1 0.6 - 1.1 cm AV Mean PG 11.0 mmHg IVSd 2D 1.3 0.6 - 1.1 cm AV Peak Frankie 2.4 m/sec IVS/LVPW 2D 1.2 AV Peak PG 23.0 mmHg AoR Diam 2D 2.5 2.0 - 3.7 cm AV VTI 51.1 cm LA/Ao 2D 1 0 - 1 LVOT Peak Frankie 1.2 m/sec EDV 2D 16.2 cm3 LVOT Peak PG 5.0 mmHg ESV 2D 4.9 cm3 MV E Peak Frankie 0.5 m/sec LA Dimen 2D 3.5 2.3 - 4.0 cm MV A Peak Frankie 1.2 m/sec LVOT Area 3.5 cm2 MV E/A 0.4 MV Decel Time 204 msec MV E/A 0.4 TR Peak Frankie 3.5 m/sec TR Peak PG 49.0 mmHg RVSP 52.0 mmHg RA Pressure 3.0 Findings Left Ventricle: Normal left ventricular systolic function. Normal left ventricular cavity size. Mild concentric left ventricular hypertrophy. Ejection fraction is visually estimated at 65 %. Tissue Doppler/Mitral Doppler indices are consistent with impaired relaxation (Stage I diastolic dysfunction). Right Ventricle: Normal right ventricular size. Normal right ventricular systolic function. Left Atrium: There is moderate enlargement of left atrium. Right Atrium: There is mild enlargement of right atrium. Mitral Valve: Mitral valve leaflets appear mildly thickened. Moderate mitral annular calcification. Mild mitral valve regurgitation. Aortic Valve: Aortic sclerosis without significant stenosis. No aortic regurgitation. Tricuspid Valve: Normal appearance of the tricuspid valve. Estimated peak PA systolic pressure 52 mmHg. There is moderate tricuspid regurgitation. Pulmonic Valve: Normal pulmonic valve appearance. There is trace to mild pulmonic regurgitation. Pericardium: Normal pericardium with no significant pericardial effusion. Aorta: Normal aortic root. IVC: Normal size and normal respiratory collapse consistent with normal right atrial pressure. Conclusions Normal left ventricular systolic function. Normal left ventricular cavity size. Mild concentric left ventricular hypertrophy. Ejection fraction is visually estimated at 65 %. Tissue Doppler/Mitral Doppler indices are consistent with impaired relaxation (Stage I diastolic dysfunction). Aortic sclerosis without significant stenosis. No aortic regurgitation. Moderate tricuspid regurgitation. Estimated peak PA systolic pressure 52 mmHg based on RA pressure of 3 mmHg. Electronically Signed By: Brian Fisher 17-Apr-2018 16:39:11 -0800 Patient Name: YAMIL GARVEY Study Date: 17-Apr-2018 [id number]
--- NOTE | 2018-04-17 16:53 | CONS ---
Date/Time of Note Date/Time of Note DATE: 04/17/18 TIME: 16:49 Assessment/Plan Assessment/Plan Hospital Course New onset atrial fibrillation with RVR: No known history. Likely due to underlying respiratory failure. Converted back to sinus after amiodarone drip Respiratory failure:CT shows possible bronchiolitis as well as right hilar mass compressing right airway. Does not appear to have CHF at this time PNA Right hilar mass DM HTN Hypothyroidism -continue amiodarone 0.5mg/min until can tolerate PO -poor prognosis. Family is aware Result Diagram: 04/17/18 1338 04/17/18 1338 Results 24hrs Laboratory Tests Test 04/16/18 17:35 04/16/18 21:21 04/17/18 00:23 04/17/18 05:24 Bedside Glucose 292 H 316 H 278 H 197 Test 04/17/18 08:08 04/17/18 13:08 04/17/18 13:38 Bedside Glucose 180 197 White Blood Count 13.8 H Red Blood Count 3.05 L Hemoglobin 9.2 L Hematocrit 30.9 L Mean Corpuscular 101.3 H Volume Mean Corpuscular 30.2 Hemoglobin Mean Corpuscular 29.8 L Hemoglobin Concent Red Cell 14.6 H Distribution Width Platelet Count 336 Mean Platelet Volume 9.4 Immature 0.500 H Granulocytes % Neutrophils % 93.4 H Lymphocytes % 4.9 L Monocytes % 1.1 Eosinophils % 0.0 Basophils % 0.1 Nucleated Red Blood 0.0 Cells % Immature 0.070 H Granulocytes # Neutrophils # 12.9 H Lymphocytes # 0.7 L Monocytes # 0.2 L Eosinophils # 0.0 Basophils # 0.0 Nucleated Red Blood 0.0 Cells # Sodium Level 145 H Potassium Level 3.7 Chloride Level 102 Carbon Dioxide Level 40 H Anion Gap 3 L Blood Urea Nitrogen 40 H Creatinine 0.54 Est Glomerular Filtrat Rate mL/min Glucose Level 177 Calcium Level 9.1 Magnesium Level 1.5 L Total Bilirubin 0.2 Direct Bilirubin 0.00 Indirect Bilirubin 0.2 Aspartate Amino 17 Transf (AST/SGOT) Alanine 22 Aminotransferase (AL T/SGPT) Alkaline Phosphatase 64 Total Protein 5.9 L Albumin 2.7 L Globulin 3.20 Albumin/Globulin 0.84 Ratio Thyroid Stimulating 0.892 Hormone (TSH) Consultation Date/Type/Reason Admit Date/Time Apr 16, 2018 at 13:54 Initial Consult Date 04/17/18 Type of Consult Cardiology Requesting Provider: CHASE LIM MD 24 HR Interval Summary Free Text/Dictation Converted to sinus. Respiratory status still tenuous. Family at bedside hopeful she will survive tonight so that her other daughter can come see her. Exam/Review of Systems Vital Signs Vitals Vital Signs Date Temp Pulse Resp B/P (MAP) Pulse Ox O2 O2 Flow FiO2 Time Delivery Rate 04/17/18 98.2 83 19 129/75 94 15:48 (93) 04/17/18 60 14:55 04/17/18 25.0 08:40 04/17/18 Vapotherm 07:51 Intake and Output 04/16/18 04/16/18 04/17/18 1515:00 23:00 07:00 IntakeIntake Total 50 ml 520 ml BalanceBalance 50 ml 520 ml Exam Constitutional: alert, distress Head: normocephalic, atraumatic Neck: No jvd Respiratory: other (ronchi ); No clear to auscultation Cardiovascular: regular rate and rhythm, systolic murmur (2/6 ONIEL); No edema Gastrointestinal: soft, non-tender; No distended Neurological: No nl mental status, No nl speech Medications Medications Current Medications Cholecalciferol (Vitamin D) 1,000 unit DAILY PO ; Start 04/17/18 at 09:00 Albuterol/ Ipratropium (Duoneb) 3 ml Q6H RESP THERAPY PRN NEB WHEEZING AND SOB Last administered on 04/16/18at 23:18; Admin Dose 3 ML; Start 04/16/18 at 14:00 Magnesium Hydroxide (Milk Of Mag) 30 ml DAILY PRN PO CONSTIPATION; Start 04/16/18 at 14:00 Meclizine HCl (Antivert) 25 mg Q8H PRN PO DIZZINESS; Start 04/16/18 at 14:00 Sertraline HCl (Zoloft) 50 mg DAILY PO ; Start 04/17/18 at 09:00 Tramadol HCl (Ultram) 50 mg Q6H PRN PO PAIN Last administered on 04/16/18at 21:30; Admin Dose 50 MG; Start 04/16/18 at 14:00 IV Flush (NS 3 ml) 3 ml PER PROTOCOL IV ; Start 04/16/18 at 14:30 Ondansetron HCl (Zofran Inj) 4 mg Q6H PRN IV NAUSEA AND/OR VOMITING; Start 04/16/18 at 14:30 Enoxaparin Sodium (Lovenox) 30 mg DAILY SC Last administered on 04/17/18at 08:21; Admin Dose 30 MG; Start 04/17/18 at 09:00 Cefepime HCl 50 ml @ 100 mls/hr Q24H IVPB Last administered on 04/16/18at 21 :25; Admin Dose 100 MLS/HR; Start 04/16/18 at 21:00 Levalbuterol (Xopenex Neb) 0.63 mg Q6H RESP THERAPY HHN Last administered on 04/17/18at 14:48; Admin Dose 0.63 MG; Start 04/16/18 at 20:00 Miscellaneous Information 1 ea NOTE XX ; Start 04/16/18 at 16:30 Glucose (Glutose) 15 gm Q15M PRN PO DECREASED GLUCOSE; Start 04/16/18 at 16:30 Glucose (Glutose) 22.5 gm Q15M PRN PO DECREASED GLUCOSE; Start 04/16/18 at 16:30 Dextrose (D50w Syringe) 25 ml Q15M PRN IV DECREASED GLUCOSE; Start 04/16/18 at 16:30 Dextrose (D50w Syringe) 50 ml Q15M PRN IV DECREASED GLUCOSE; Start 04/16/18 at 16:30 Glucagon (Glucagen) 1 mg Q15M PRN IM DECREASED GLUCOSE; Start 04/16/18 at 16:30 Glucose (Glutose) 15 gm Q15M PRN BUCCAL DECREASED GLUCOSE; Start 04/16/18 at 16:30 Amiodarone HCl 900 mg/Dextrose 500 ml @ 0 mls/hr Q0M IV Last administered on 04/16/18at 18:27; Admin Dose 33.4 MLS/HR; Start 04/16/18 at 17:30 Acetaminophen (Tylenol Liquid) 650 mg Q6H PRN PO PAIN LEVEL 1-3 OR FEVER; Start 04/16/18 at 20:00 Aspirin (Aspirin) 325 mg DAILY PO ; Start 04/17/18 at 09:00 Multivitamins (Multivitamin) 30 ml DAILY PO ; Start 04/17/18 at 09:00 Acetylcysteine (Mucomyst) 3 ml Q6H RESP THERAPY NEB Last administered on 04/17/18at 14:48; Admin Dose 3 ML; Start 04/17/18 at 02:00 Insulin Aspart (Novolog Insulin Pen) NOVOLOG *MILD* ALGORI... Q4 SC Last administered on 04/17/18at 13:13; Admin Dose 2 UNIT; Start 04/17/18 at 01:00 Levothyroxine Sodium (Synthroid Iv) 62.5 mcg DAILY@06 IV Last administered on 04/17/18at 06:00; Admin Dose 62.5 MCG; Start 04/17/18 at 06:00 Pantoprazole (Protonix Iv) 40 mg DAILY@06 IV Last administered on 04/17/18at 06:28; Admin Dose 40 MG; Start 04/17/18 at 06:00 Dextrose/Sodium Chloride 1,000 ml @ 50 mls/hr Q20H IV Last administered on 04/17/18at 11:51; Admin Dose 50 MLS/HR; Start 04/17/18 at 11:00 Acetaminophen (Tylenol Supp) 650 mg Q4H PRN NE MILD PAIN(1-3) OR TEMP>38C; Start 04/17/18 at 11:30 Acetaminophen 100 ml @ 400 mls/hr Q6 IVPB Last administered on 04/17/18at 12:31; Admin Dose 400 MLS/HR; Start 04/17/18 at 12:00; Stop 04/18/18 at 11:59 Lorazepam (Ativan) 0.5 mg Q8H PRN IV ANXIETY; Start 04/17/18 at 11:30 Insulin Aspart Prota 70%/Aspart 30% (Novolog Mix (70/ 30) Flexpen) 15 unit BID SC ; Start 04/17/18 at 21:00 Methylprednisolone Sodium Succinate (Solu-Medrol) 40 mg DAILY IV ; Start 04/18/18 at 09:00 BRIAN JIMENES Apr 17, 2018 16:53
[2018-04-17] MEDS ORDERED: MAGNESIUM SULFATE 2 GM/50 ML 50 ML IVPB ONE (19:00)
[2018-04-17] MEDS: CEFEPIME 1GM/50 ML (PMX) 50 ML IVPB SCH (20:16)
[2018-04-17] MEDS ORDERED: INSULIN ASP PROT/ASPART (70/30) PEN SC SCH (21:00)
[2018-04-17] MEDS: AMIODARONE 900 MG in DEXTROSE 5% 482 ML IV SCH (21:55)
[2018-04-17] MEDS ORDERED: HALOPERIDOL 5 MG INJ IM ONE ×2 (22:00→23:00)
[2018-04-18] VITALS (12 sets, daily range): BP systolic 124–174; BP diastolic 62–91; PULSE 78–99; RESP 18–19
[2018-04-18] MEDS ORDERED: LORAZEPAM 2 MG INJ ONE (01:38)
[2018-04-18] MEDS: LEVALBUTEROL (NEB) 0.63 MG/3 ML AMP HHN SCH ×3 (01:48→13:06)
[2018-04-18] MEDS: ACETYLCYSTEINE 20% 4 ML VIAL NEB SCH ×4 (01:49→19:30)
[2018-04-18] MEDS: INSULIN ASPART [NOVOLOG] 3 ML PEN SC SCH ×5 (02:10→16:50)
[2018-04-18] MEDS ORDERED: LORAZEPAM 2 MG INJ IV PRN ×2 (03:30→11:30)
[2018-04-18] MEDS: LEVOTHYROXINE 100 MCG VIAL IV SCH (05:59)
[2018-04-18] MEDS: PANTOPRAZOLE 40 MG INJ IV SCH (05:59)
[2018-04-18] MEDS: ACETAMINOPHEN 1000MG/100ML IV 100 ML IVPB SCH (06:01)
--- NOTE | 2018-04-18 08:52 | PN ---
Date/Time of Note Date/Time of Note DATE: 04/18/18 TIME: 08:52 Assessment/Plan VTE Prophylaxis Risk score (from Ns)>0 risk: 8 SCD applied (from Ns): No SCD contraindicated: patient refusal Pharmacological prophylaxis: NA/contraindicated Pharm contraindication: bleeding Lines/Catheters IV Catheter Type (from Nrs): Peripheral IV Urinary Cath still in place: No Assessment/Plan Assessment/Plan 1. 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 - Pulmonology consultation appreciated and recommending wean as tolerated. 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 Afib with RVR - Cardiology consultation appreciated and will continue on IV amiodarone until able to tolerate PO intake - no anticoagulation started given risk outweigh benefits given patients recent history of fall and deteriorating health since fall 3. hypothyroidism - continue levothyroxine 4. DM - A1c 7.7 - Will continue on ISS and accuchecks - Novolog 70/30 with steroids 5. HTN 6. Rheumatoid arthritis - continue on pain control as tolerated 7. Disposition - Family requesting patient be changed back to full code and would like to continue with all treatment - Discussed NG tube vs PEG if patient continues to fail speech evaluation - family would like information regarding [facility] as well Result Diagram: 04/17/18 1338 04/17/18 1338 Results 24hrs Laboratory Tests Test 04/17/18 13:08 04/17/18 13:38 04/17/18 16:57 04/17/18 20:14 Bedside Glucose 197 215 270 H White Blood Count 13.8 H Red Blood Count 3.05 L Hemoglobin 9.2 L Hematocrit 30.9 L Mean Corpuscular 101.3 H Volume Mean Corpuscular 30.2 Hemoglobin Mean Corpuscular 29.8 L Hemoglobin Concent Red Cell 14.6 H Distribution Width Platelet Count 336 Mean Platelet Volume 9.4 Immature 0.500 H Granulocytes % Neutrophils % 93.4 H Lymphocytes % 4.9 L Monocytes % 1.1 Eosinophils % 0.0 Basophils % 0.1 Nucleated Red Blood 0.0 Cells % Immature 0.070 H Granulocytes # Neutrophils # 12.9 H Lymphocytes # 0.7 L Monocytes # 0.2 L Eosinophils # 0.0 Basophils # 0.0 Nucleated Red Blood 0.0 Cells # Sodium Level 145 H Potassium Level 3.7 Chloride Level 102 Carbon Dioxide Level 40 H Anion Gap 3 L Blood Urea Nitrogen 40 H Creatinine 0.54 Est Glomerular Filtrat Rate mL/min Glucose Level 177 Calcium Level 9.1 Magnesium Level 1.5 L Total Bilirubin 0.2 Direct Bilirubin 0.00 Indirect Bilirubin 0.2 Aspartate Amino 17 Transf (AST/SGOT) Alanine 22 Aminotransferase (AL T/SGPT) Alkaline Phosphatase 64 Total Protein 5.9 L Albumin 2.7 L Globulin 3.20 Albumin/Globulin 0.84 Ratio Thyroid Stimulating 0.892 Hormone (TSH) Test 04/18/18 01:40 04/18/18 05:01 Bedside Glucose 239 H 226 H Subjective 24 Hr Interval Summary Free Text/Dictation Patient still confused and asking for tylenol and breathing treatment. Family at bedside and discussed plan of care with 3 children. Daughter from [place] would like to continue all treatment and patient will remain full code. Son o pting for DNR so will allow family to discuss goals. Also, discussed need to make a decision on NG tube and possible need for PEG if continues to fail ST. Discussed [facility] as well and open to see if patient would be ideal for facility. No acute overnight events. Exam/Review of Systems Vital Signs Vitals Vital Signs Date Temp Pulse Resp B/P (MAP) Pulse Ox O2 O2 Flow FiO2 Time Delivery Rate 04/18/18 105 20 96 55 07:45 04/18/18 97.5 174/80 07:16 (111) 04/17/18 Vapotherm 20:03 04/17/18 25.0 08:40 Intake and Output 04/17/18 04/17/18 04/18/18 1515:00 23:00 07:00 IntakeIntake Total 100 ml 1000.0 ml 621.1 ml BalanceBalance 100 ml 1000.0 ml 621.1 ml Exam General: Patient in no acute distress. pleasantly confused and asking for Tyl enol and breathing treatments Neck: Supple Chest: Nontender Lungs: Clear to auscultation bilaterally no crackles rales or wheezing Heart: Normal S1-S2, Regular rhythm and rate. systolic murmur Abdomen: Soft , nontender to palpation of the abdomen, bowel sounds are present. Extremities: Normal to inspection, no edema no cyanosis Medications Medications Current Medications Cholecalciferol (Vitamin D) 1,000 unit DAILY PO ; Start 04/17/18 at 09:00 Albuterol/ Ipratropium (Duoneb) 3 ml Q6H RESP THERAPY PRN NEB WHEEZING AND SOB Last administered on 04/16/18at 23:18; Admin Dose 3 ML; Start 04/16/18 at 14:00 Magnesium Hydroxide (Milk Of Mag) 30 ml DAILY PRN PO CONSTIPATION; Start 04/16/18 at 14:00 Meclizine HCl (Antivert) 25 mg Q8H PRN PO DIZZINESS; Start 04/16/18 at 14:00 Sertraline HCl (Zoloft) 50 mg DAILY PO ; Start 04/17/18 at 09:00 Tramadol HCl (Ultram) 50 mg Q6H PRN PO PAIN Last administered on 04/16/18at 21:30; Admin Dose 50 MG; Start 04/16/18 at 14:00 IV Flush (NS 3 ml) 3 ml PER PROTOCOL IV ; Start 04/16/18 at 14:30 Ondansetron HCl (Zofran Inj) 4 mg Q6H PRN IV NAUSEA AND/OR VOMITING; Start 04/16/18 at 14:30 Enoxaparin Sodium (Lovenox) 30 mg DAILY SC Last administered on 04/17/18at 08:21; Admin Dose 30 MG; Start 04/17/18 at 09:00 Cefepime HCl 50 ml @ 100 mls/hr Q24H IVPB Last administered on 04/17/18at 20:16; Admin Dose 100 MLS/HR; Start 04/16/18 at 21:00 Levalbuterol (Xopenex Neb) 0.63 mg Q6H RESP THERAPY HHN Last administered on 04/18/18at 07:35; Admin Dose 0.63 MG; Start 04/16/18 at 20:00 Miscellaneous Information 1 ea NOTE XX ; Start 04/16/18 at 16:30 Glucose (Glutose) 15 gm Q15M PRN PO DECREASED GLUCOSE; Start 04/16/18 at 16:30 Glucose (Glutose) 22.5 gm Q15M PRN PO DECREASED GLUCOSE; Start 04/16/18 at 16:3 0 Dextrose (D50w Syringe) 25 ml Q15M PRN IV DECREASED GLUCOSE; Start 04/16/18 at 16:30 Dextrose (D50w Syringe) 50 ml Q15M PRN IV DECREASED GLUCOSE; Start 04/16/18 at 16:30 Glucagon (Glucagen) 1 mg Q15M PRN IM DECREASED GLUCOSE; Start 04/16/18 at 16:30 Glucose (Glutose) 15 gm Q15M PRN BUCCAL DECREASED GLUCOSE; Start 04/16/18 at 16:30 Amiodarone HCl 900 mg/Dextrose 500 ml @ 0 mls/hr Q0M IV Last administered on 04/17/18at 21:55; Admin Dose 16.7 MLS/HR; Start 04/16/18 at 17:30 Acetaminophen (Tylenol Liquid) 650 mg Q6H PRN PO PAIN LEVEL 1-3 OR FEVER; Start 04/16/18 at 20:00 Aspirin (Aspirin) 325 mg DAILY PO ; Start 04/17/18 at 09:00 Multivitamins (Multivitamin) 30 ml DAILY PO ; Start 04/17/18 at 09:00 Acetylcysteine (Mucomyst) 3 ml Q6H RESP THERAPY NEB Last administered on 04/18/18at 07:35; Admin Dose 3 ML; Start 04/17/18 at 02:00 Insulin Aspart (Novolog Insulin Pen) NOVOLOG *MILD* ALGORI... Q4 SC Last administered on 04/18/18at 06:09; Admin Dose 3 UNIT; Start 04/17/18 at 01:00 Levothyroxine Sodium (Synthroid Iv) 62.5 mcg DAILY@06 IV Last administered on 04/18/18at 05:59; Admin Dose 62.5 MCG; Start 04/17/18 at 06:00 Pantoprazole (Protonix Iv) 40 mg DAILY@06 IV Last administered on 04/18/18at 05:59; Admin Dose 40 MG; Start 04/17/18 at 06:00 Dextrose/Sodium Chloride 1,000 ml @ 50 mls/hr Q20H IV Last administered on 04/17/18at 11:51; Admin Dose 50 MLS/HR; Start 04/17/18 at 11:00 Acetaminophen (Tylenol Supp) 650 mg Q4H PRN SC MILD PAIN(1-3) OR TEMP>38C; Start 04/17/18 at 11:30 Acetaminophen 100 ml @ 400 mls/hr Q6 IVPB Last administered on 04/18/18at 06:01; Admin Dose 400 MLS/HR; Start 04/17/18 at 12:00; Stop 04/18/18 at 11:59 Methylprednisolone Sodium Succinate (Solu-Medrol) 40 mg DAILY IV ; Start 04/18/18 at 09:00 Lorazepam (Ativan) 1 mg Q8H PRN IV ANXIETY Last administered on 04/18/18at 01:42; Admin Dose 1 MG; Start 04/18/18 at 03:30 Insulin Aspart Prota 70%/Aspart 30% (Novolog Mix (70/ 30) Flexpen) 15 unit DAILY SC ; Start 04/18/18 at 09:00 CHASE LIM MD Apr 18, 2018 08:52
[2018-04-18] MEDS: SERTRALINE 50 MG TAB PO SCH (09:00)
[2018-04-18] MEDS: ASPIRIN 325 MG TAB PO SCH (09:00)
[2018-04-18] MEDS: CHOLECALCIFEROL 1,000 UNIT TAB PO SCH (09:00)
[2018-04-18] MEDS: MULTIVITAMINS 30 ML CUP PO SCH (09:00)
[2018-04-18] MEDS: METHYLPREDNISOLONE 40 MG INJ IV SCH (09:59)
[2018-04-18] MEDS: DEXTROSE 5%-0.45% NACL 1,000 ML IV SCH (09:59)
[2018-04-18] MEDS: ENOXAPARIN 30 MG/0.3 ML SYG SC SCH (10:17)
[2018-04-18] MEDS: BALSAM PERU/CASTOR OIL 60 GM TUBE TOP SCH ×2 (10:26→22:27)
[2018-04-18] MEDS: INSULIN ASP PROT/ASPART (70/30) PEN SC SCH (10:29)
[2018-04-18] MEDS ORDERED: FUROSEMIDE 40 MG INJ IV ONE (10:30)
--- NOTE | 2018-04-18 10:39 | CONS ---
Date/Time of Note Date/Time of Note DATE: 04/18/18 TIME: 10:12 Assessment/Plan Assessment/Plan Assessment/Plan Assessment recommendations; 1. Patient admitted with hypoxemia. Has advanced rheumatoid lung. Continue current supportive care. Consider CODE STATUS discussion with the family. The family is amenable to DNR/hospice. Result Diagram: 04/17/18 1338 04/17/18 1338 Results 24hrs Laboratory Tests Test 04/17/18 13:08 04/17/18 13:38 04/17/18 16:57 04/17/18 20:14 Bedside Glucose 197 215 270 H White Blood Count 13.8 H Red Blood Count 3.05 L Hemoglobin 9.2 L Hematocrit 30.9 L Mean Corpuscular 101.3 H Volume Mean Corpuscular 30.2 Hemoglobin Mean Corpuscular 29.8 L Hemoglobin Concent Red Cell 14.6 H Distribution Width Platelet Count 336 Mean Platelet Volume 9.4 Immature 0.500 H Granulocytes % Neutrophils % 93.4 H Lymphocytes % 4.9 L Monocytes % 1.1 Eosinophils % 0.0 Basophils % 0.1 Nucleated Red Blood 0.0 Cells % Immature 0.070 H Granulocytes # Neutrophils # 12.9 H Lymphocytes # 0.7 L Monocytes # 0.2 L Eosinophils # 0.0 Basophils # 0.0 Nucleated Red Blood 0.0 Cells # Sodium Level 145 H Potassium Level 3.7 Chloride Level 102 Carbon Dioxide Level 40 H Anion Gap 3 L Blood Urea Nitrogen 40 H Creatinine 0.54 Est Glomerular Filtrat Rate mL/min Glucose Level 177 Calcium Level 9.1 Magnesium Level 1.5 L Total Bilirubin 0.2 Direct Bilirubin 0.00 Indirect Bilirubin 0.2 Aspartate Amino 17 Transf (AST/SGOT) Alanine 22 Aminotransferase (AL T/SGPT) Alkaline Phosphatase 64 Total Protein 5.9 L Albumin 2.7 L Globulin 3.20 Albumin/Globulin 0.84 Ratio Thyroid Stimulating 0.892 Hormone (TSH) Test 04/18/18 01:40 04/18/18 05:01 04/18/18 10:09 Bedside Glucose 239 H 226 H 263 H Consultation Date/Type/Reason Admit Date/Time Apr 16, 2018 at 13:54 Initial Consult Date 04/17/18 Type of Consult Pulmonary History of presenting illness; patient is an 87-year-old lady who has been transferred over from rehab because of hypoxemia. Upon evaluation chest x-ray and CT scan of chest were done which is showing extensive groundglass opacities with nodular changes. Patient has maintained her high flow nasal cannula with stable O2 saturation. The patient is a very poor historian and history was obtained from medical record as well as from patient's daughter who was present in the room. According to the patient's daughter the patient was doing fine until a few months ago when she sustained a fall resulting in hip fracture and ever since then the patient has had a progressive downhill course patient also has been on home oxygen for the last 2 months. The patient appears awake but lethargic. Was able to answer some questions. Past medical history; 1. 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 2. History of chronic atrial fibrillation. 3. Hypertension. 4. Recent hip fracture. 5. Chronic hypoxemia. 6. Diabetes. Medications; reviewed. Allergies; codeine. Social history; patient has been a lifelong non-smoker. Family history; noncontributory. Patient is with her son. Occupational history; patient has been a housewife. Review of system; difficult to obtain. General exam; elderly female, on high flow nasal cannula. Currently no distress. Requesting Provider: CHASE LIM MD 24 HR Interval Summary Free Text/Dictation Patient's condition is tenuous at best. Still remains hypoxemic on high flow nasal cannula at 55% FiO2. General exam; elderly female, appearing mildly lethargic. Exam/Review of Systems Vital Signs Vitals Vital Signs Date Temp Pulse Resp B/P (MAP) Pulse Ox O2 O2 Flow FiO2 Time Delivery Rate 04/18/18 86 09:08 04/18/18 20 96 55 07:45 04/18/18 97.5 174/80 07:16 (111) 04/17/18 Vapotherm 20:03 04/17/18 25.0 08:40 Intake and Output 04/17/18 04/17/18 04/18/18 1515:00 23:00 07:00 IntakeIntake Total 100 ml 1000.0 ml 621.1 ml BalanceBalance 100 ml 1000.0 ml 621.1 ml Exam H EENT exam; supple neck, no JVD. No lymphadenopathy. Midline trachea. No thyromegaly. Patient is edentulous. Chest exam; diminished breath sounds bilaterally. S1-S2 audible, no murmurs. Abdomen exam; soft, no organomegaly. Bowel sounds audible. Extremity exam; peripheral edema clubbing. ASSISTANT CLINICAL NURSE MANAGER exam; patient is lethargic. Medications Medications Current Medications Cholecalciferol (Vitamin D) 1,000 unit DAILY PO ; Start 04/17/18 at 09:00 Albuterol/ Ipratropium (Duoneb) 3 ml Q6H RESP THERAPY PRN NEB WHEEZING AND SOB Last administered on 04/16/18at 23:18; Admin Dose 3 ML; Start 04/16/18 at 14:00 Magnesium Hydroxide (Milk Of Mag) 30 ml DAILY PRN PO CONSTIPATION; Start 04/16/18 at 14:00 Meclizine HCl (Antivert) 25 mg Q8H PRN PO DIZZINESS; Start 04/16/18 at 14:00 Sertraline HCl (Zoloft) 50 mg DAILY PO ; Start 04/17/18 at 09:00 Tramadol HCl (Ultram) 50 mg Q6H PRN PO PAIN Last administered on 04/16/18at 21:30; Admin Dose 50 MG; Start 04/16/18 at 14:00 IV Flush (NS 3 ml) 3 ml PER PROTOCOL IV ; Start 04/16/18 at 14:30 Ondansetron HCl (Zofran Inj) 4 mg Q6H PRN IV NAUSEA AND/OR VOMITING; Start 04/16/18 at 14:30 Enoxaparin Sodium (Lovenox) 30 mg DAILY SC Last administered on 04/17/18at 08:21; Admin Dose 30 MG; Start 04/17/18 at 09:00 Cefepime HCl 50 ml @ 100 mls/hr Q24H IVPB Last administered on 04/17/18at 20:16; Admin Dose 100 MLS/HR; Start 04/16/18 at 21:00 Levalbuterol (Xopenex Neb) 0.63 mg Q6H RESP THERAPY HHN Last administered on 04/18/18at 07:35; Admin Dose 0.63 MG; Start 04/16/18 at 20:00 Miscellaneous Information 1 ea NOTE XX ; Start 04/16/18 at 16:30 Glucose (Glutose) 15 gm Q15M PRN PO DECREASED GLUCOSE; Start 04/16/18 at 16:30 Glucose (Glutose) 22.5 gm Q15M PRN PO DECREASED GLUCOSE; Start 04/16/18 at 16:30 Dextrose (D50w Syringe) 25 ml Q15M PRN IV DECREASED GLUCOSE; Start 04/16/18 at 16:30 Dextrose (D50w Syringe) 50 ml Q15M PRN IV DECREASED GLUCOSE; Start 04/16/18 at 16:30 Glucagon (Glucagen) 1 mg Q15M PRN IM DECREASED GLUCOSE; Start 04/16/18 at 16:30 Glucose (Glutose) 15 gm Q15M PRN BUCCAL DECREASED GLUCOSE; Start 04/16/18 at 16:30 Amiodarone HCl 900 mg/Dextrose 500 ml @ 0 mls/hr Q0M IV Last administered on 04/17/18at 21:55; Admin Dose 16.7 MLS/HR; Start 04/16/18 at 17:30 Acetaminophen (Tylenol Liquid) 650 mg Q6H PRN PO PAIN LEVEL 1-3 OR FEVER; Start 04/16/18 at 20:00 Aspirin (Aspirin) 325 mg DAILY PO ; Start 04/17/18 at 09:00 Multivitamins (Multivitamin) 30 ml DAILY PO ; Start 04/17/18 at 09:00 Acetylcysteine (Mucomyst) 3 ml Q6H RESP THERAPY NEB Last administered on 04/18/18at 07:35; Admin Dose 3 ML; Start 04/17/18 at 02:00 Insulin Aspart (Novolog Insulin Pen) NOVOLOG *MILD* ALGORI... Q4 SC Last adm inistered on 04/18/18at 06:09; Admin Dose 3 UNIT; Start 04/17/18 at 01:00 Levothyroxine Sodium (Synthroid Iv) 62.5 mcg DAILY@06 IV Last administered on 04/18/18at 05:59; Admin Dose 62.5 MCG; Start 04/17/18 at 06:00 Pantoprazole (Protonix Iv) 40 mg DAILY@06 IV Last administered on 04/18/18at 05:59; Admin Dose 40 MG; Start 04/17/18 at 06:00 Dextrose/Sodium Chloride 1,000 ml @ 50 mls/hr Q20H IV Last administered on 04/17/18at 11:51; Admin Dose 50 MLS/HR; Start 04/17/18 at 11:00 Acetaminophen (Tylenol Supp) 650 mg Q4H PRN MD MILD PAIN(1-3) OR TEMP>38C; Start 04/17/18 at 11:30 Acetaminophen 100 ml @ 400 mls/hr Q6 IVPB Last administered on 04/18/18at 06:01; Admin Dose 400 MLS/HR; Start 04/17/18 at 12:00; Stop 04/18/18 at 11:59 Methylprednisolone Sodium Succinate (Solu-Medrol) 40 mg DAILY IV ; Start 04/18/18 at 09:00 Lorazepam (Ativan) 1 mg Q8H PRN IV ANXIETY Last administered on 04/18/18at 0 1:42; Admin Dose 1 MG; Start 04/18/18 at 03:30 Insulin Aspart Prota 70%/Aspart 30% (Novolog Mix (70/ 30) Flexpen) 15 unit DAILY SC ; Start 04/18/18 at 09:00 JIMMY DONOHUE Apr 18, 2018 10:36
[2018-04-18] MEDS: ALBUTEROL/IPRATROPIUM (NEB) 3 ML AMP NEB SCH ×3 (11:00→19:30)
[2018-04-18] MEDS ORDERED: LORAZEPAM 2 MG INJ IV SCH (11:30)
--- NOTE | 2018-04-18 11:32 | CONS ---
Date/Time of Note Date/Time of Note DATE: 04/18/18 TIME: 11:31 Assessment/Plan Assessment/Plan Hospital Course New onset atrial fibrillation with RVR: No known history. Likely due to underlying respiratory failure. Converted back to sinus after amiodarone drip Respiratory failure:CT shows possible bronchiolitis as well as right hilar mass compressing right airway. Does not appear to have CHF at this time PNA Right hilar mass DM HTN Hypothyroidism -continue amiodarone 0.5mg/min until can tolerate PO -poor prognosis. Family deciding on hospice Result Diagram: 04/17/18 1338 04/17/18 1338 Results 24hrs Laboratory Tests Test 04/17/18 13:08 04/17/18 13:38 04/17/18 16:57 04/17/18 20:14 Bedside Glucose 197 215 270 H White Blood Count 13.8 H Red Blood Count 3.05 L Hemoglobin 9.2 L Hematocrit 30.9 L Mean Corpuscular 101.3 H Volume Mean Corpuscular 30.2 Hemoglobin Mean Corpuscular 29.8 L Hemoglobin Concent Red Cell 14.6 H Distribution Width Platelet Count 336 Mean Platelet Volume 9.4 Immature 0.500 H Granulocytes % Neutrophils % 93.4 H Lymphocytes % 4.9 L Monocytes % 1.1 Eosinophils % 0.0 Basophils % 0.1 Nucleated Red Blood 0.0 Cells % Immature 0.070 H Granulocytes # Neutrophils # 12.9 H Lymphocytes # 0.7 L Monocytes # 0.2 L Eosinophils # 0.0 Basophils # 0.0 Nucleated Red Blood 0.0 Cells # Sodium Level 145 H Potassium Level 3.7 Chloride Level 102 Carbon Dioxide Level 40 H Anion Gap 3 L Blood Urea Nitrogen 40 H Creatinine 0.54 Est Glomerular Filtrat Rate mL/min Glucose Level 177 Calcium Level 9.1 Magnesium Level 1.5 L Total Bilirubin 0.2 Direct Bilirubin 0.00 Indirect Bilirubin 0.2 Aspartate Amino 17 Transf (AST/SGOT) Alanine 22 Aminotransferase (AL T/SGPT) Alkaline Phosphatase 64 Total Protein 5.9 L Albumin 2.7 L Globulin 3.20 Albumin/Globulin 0.84 Ratio Thyroid Stimulating 0.892 Hormone (TSH) Test 04/18/18 01:40 04/18/18 05:01 04/18/18 10:09 Bedside Glucose 239 H 226 H 263 H Consultation Date/Type/Reason Admit Date/Time Apr 16, 2018 at 13:54 Initial Consult Date 04/17/18 Type of Consult Cardiology Requesting Provider: CHASE LIM MD 24 HR Interval Summary Free Text/Dictation No events. Remains in sinus. Daughter at bedside Exam/Review of Systems Vital Signs Vitals Vital Signs Date Temp Pulse Resp B/P (MAP) Pulse Ox O2 O2 Flow FiO2 Time Delivery Rate 04/18/18 86 09:08 04/18/18 20 96 55 07:45 04/18/18 97.5 174/80 07:16 (111) 04/17/18 Vapotherm 20:03 04/17/18 25.0 08:40 Intake and Output 04/17/18 04/17/18 04/18/18 1414:59 22:59 06:59 IntakeIntake Total 100 ml 1000.0 ml 621.1 ml BalanceBalance 100 ml 1000.0 ml 621.1 ml Exam Constitutional: alert, distress (mild) Head: normocephalic, atraumatic Neck: No jvd Respiratory: No clear to auscultation (ronchi ) Cardiovascular: regular rate and rhythm, systolic murmur (2/6 ONIEL); No edema Gastrointestinal: soft, non-tender Neurological: nl mental status, nl speech Medications Medications Current Medications Cholecalciferol (Vitamin D) 1,000 unit DAILY PO ; Start 04/17/18 at 09:00 Magnesium Hydroxide (Milk Of Mag) 30 ml DAILY PRN PO CONSTIPATION; Start 04/16/18 at 14:00 Meclizine HCl (Antivert) 25 mg Q8H PRN PO DIZZINESS; Start 04/16/18 at 14:00 Sertraline HCl (Zoloft) 50 mg DAILY PO ; Start 04/17/18 at 09:00 Tramadol HCl (Ultram) 50 mg Q6H PRN PO PAIN Last administered on 04/16/18at 21:30; Admin Dose 50 MG; Start 04/16/18 at 14:00 IV Flush (NS 3 ml) 3 ml PER PROTOCOL IV ; Start 04/16/18 at 14:30 Ondansetron HCl (Zofran Inj) 4 mg Q6H PRN IV NAUSEA AND/OR VOMITING; Start 04/16/18 at 14:30 Enoxaparin Sodium (Lovenox) 30 mg DAILY SC Last administered on 04/18/18at 10:17; Admin Dose 30 MG; Start 04/17/18 at 09:00 Cefepime HCl 50 ml @ 100 mls/hr Q24H IVPB Last administered on 04/17/18at 20:16; Admin Dose 100 MLS/HR; Start 04/16/18 at 21:00 Levalbuterol (Xopenex Neb) 0.63 mg Q6H RESP THERAPY HHN Last administered on 04/18/18at 07:35; Admin Dose 0.63 MG; Start 04/16/18 at 20:00 Miscellaneous Information 1 ea NOTE XX ; Start 04/16/18 at 16:30 Glucose (Glutose) 15 gm Q15M PRN PO DECREASED GLUCOSE; Start 04/16/18 at 16:30 Glucose (Glutose) 22.5 gm Q15M PRN PO DECREASED GLUCOSE; Start 04/16/18 at 16:30 Dextrose (D50w Syringe) 25 ml Q15M PRN IV DECREASED GLUCOSE; Start 04/16/18 at 16:30 Dextrose (D50w Syringe) 50 ml Q15M PRN IV DECREASED GLUCOSE; Start 04/16/18 at 16:30 Glucagon (Glucagen) 1 mg Q15M PRN IM DECREASED GLUCOSE; Start 04/16/18 at 16:30 Glucose (Glutose) 15 gm Q15M PRN BUCCAL DECREASED GLUCOSE; Start 04/16/18 at 16:30 Amiodarone HCl 900 mg/Dextrose 500 ml @ 0 mls/hr Q0M IV Last administered on 04/17/18at 21:55; Admin Dose 16.7 MLS/HR; Start 04/16/18 at 17:30 Acetaminophen (Tylenol Liquid) 650 mg Q6H PRN PO PAIN LEVEL 1-3 OR FEVER; Start 04/16/18 at 20:00 Aspirin (Aspirin) 325 mg DAILY PO ; Start 04/17/18 at 09:00 Multivitamins (Multivitamin) 30 ml DAILY PO ; Start 04/17/18 at 09:00 Acetylcysteine (Mucomyst) 3 ml Q6H RESP THERAPY NEB Last administered on 04/18/18at 07:35; Admin Dose 3 ML; Start 04/17/18 at 02:00 Insulin Aspart (Novolog Insulin Pen) NOVOLOG *MILD* ALGORI... Q4 SC Last administered on 04/18/18at 10:16; Admin Dose 4 UNIT; Start 04/17/18 at 01:00 Levothyroxine Sodium (Synthroid Iv) 62.5 mcg DAILY@06 IV Last administered on 04/18/18 05:59; Admin Dose 62.5 MCG; Start 04/17/18 at 06:00 Pantoprazole (Protonix Iv) 40 mg DAILY@06 IV Last administered on 04/18/18 05:59; Admin Dose 40 MG; Start 04/17/18 at 06:00 Dextrose/Sodium Chloride 1,000 ml @ 50 mls/hr Q20H IV Last administered on 04/18/18 09:59; Admin Dose 50 MLS/HR; Start 04/17/18 at 11:00 Acetaminophen (Tylenol Supp) 650 mg Q4H PRN [place] MILD PAIN(1-3) OR TEMP>38C; Start 04/17/18 at 11:30 Acetaminophen 100 ml @ 400 mls/hr Q6 IVPB Last administered on 04/18/18at 06:01; Admin Dose 400 MLS/HR; Start 04/17/18 at 12:00; Stop 04/18/18 at 11:59 Methylprednisolone Sodium Succinate (Solu-Medrol) 40 mg DAILY IV Last administered on 04/18/18 09:59; Admin Dose 40 MG; Start 04/18/18 at 09:00 Insulin Aspart Prota 70%/Aspart 30% (Novolog Mix (70/ 30) Flexpen) 15 unit DAILY SC Last administered on 04/18/18at 10:29; Admin Dose 15 UNIT; Start 04/18/18 at 09:00 Haloperidol (Haldol) 2 mg Q4 IM ; Start 04/18/18 at 13:00 Lorazepam (Ativan) 1 mg Q4H PRN IV anxiety, agitation; Start 04/18/18 at 11:30 Albuterol/ Ipratropium (Duoneb) 3 ml Q6H RESP THERAPY NEB ; Start 04/18/18 at 11:00 Eye Lubricant (Artificial Tears Oph) 2 drop QID BOTH EYES ; Start 04/18/18 at 12:00 Albuterol (Proventil 0.083% (Neb)) 2.5 mg Q2H RESP THERAPY PRN HHN SHORTNESS OF BREATH; Start 04/18/18 at 11:00 Quetiapine Fumarate (Seroquel) 25 mg QHS PO ; Start 04/18/18 at 21:00 BRIAN JIMENES Apr 18, 2018 11:32
[2018-04-18] MEDS: ARTIFICIAL TEARS 15 ML OPH BOTH EYES SCH ×3 (12:32→22:21)
[2018-04-18] MEDS: HALOPERIDOL 5 MG INJ IM SCH ×3 (12:32→21:00)
[2018-04-18] MEDS: LORAZEPAM 2 MG INJ IV SCH ×2 (16:21→23:04)
[2018-04-18] MEDS ORDERED: ACETAMINOPHEN 1000MG/100ML IV 100 ML IVPB ONE (16:30)
[2018-04-18] MEDS ORDERED: QUETIAPINE 25 MG TAB PO SCH (21:00)
[2018-04-18] MEDS: CEFEPIME 1GM/50 ML (PMX) 50 ML IVPB SCH (22:23)
[2018-04-18] MEDS: KETOROLAC 15 MG INJ IV PRN (22:26)
[2018-04-19] VITALS (13 sets, daily range): BP systolic 126–187; BP diastolic 57–84; PULSE 82–102; RESP 17–22
[2018-04-19] MEDS: INSULIN ASPART [NOVOLOG] 3 ML PEN SC SCH ×7 (00:08→21:00)
[2018-04-19] MEDS: HALOPERIDOL 5 MG INJ IM SCH ×6 (00:09→21:00)
[2018-04-19] MEDS: ALBUTEROL/IPRATROPIUM (NEB) 3 ML AMP NEB SCH ×4 (01:36→19:39)
[2018-04-19] MEDS: ACETYLCYSTEINE 20% 4 ML VIAL NEB SCH ×4 (01:37→19:39)
[2018-04-19] MEDS: DEXTROSE 5%-0.45% NACL 1,000 ML IV SCH (03:23)
[2018-04-19] MEDS: ALBUTEROL 0.083% (NEB) 2.5 MG/3 ML AMP HHN PRN ×3 (04:05→23:39)
[2018-04-19] MEDS: PANTOPRAZOLE 40 MG INJ IV SCH (05:52)
[2018-04-19] MEDS: KETOROLAC 15 MG INJ IV PRN ×2 (05:52→23:44)
[2018-04-19] MEDS: LEVOTHYROXINE 100 MCG VIAL IV SCH (05:52)
[2018-04-19] MEDS: AMIODARONE 900 MG in DEXTROSE 5% 482 ML IV SCH (06:16)
[2018-04-19] MEDS: LORAZEPAM 2 MG INJ IV SCH ×3 (07:56→23:00)
--- NOTE | 2018-04-19 08:26 | CONS ---
Date/Time of Note Date/Time of Note DATE: 04/19/18 TIME: 08:25 Assessment/Plan Assessment/Plan Hospital Course New onset atrial fibrillation with RVR: No known history. Likely due to underlying respiratory failure. Converted back to sinus after amiodarone drip Respiratory failure:CT shows possible bronchiolitis as well as right hilar mass compressing right airway. Does not appear to have CHF at this time PNA Right hilar mass DM HTN Hypothyroidism -continue amiodarone 0.5mg/min until can tolerate PO Result Diagram: 04/17/18 1338 04/17/18 1338 Results 24hrs Laboratory Tests Test 04/18/18 10:09 04/18/18 12:34 04/18/18 16:38 04/18/18 22:20 Bedside Glucose 263 H 214 172 219 Test 04/19/18 01:26 04/19/18 05:06 Bedside Glucose 207 206 Consultation Date/Type/Reason Admit Date/Time Apr 16, 2018 at 13:54 Initial Consult Date 04/17/18 Type of Consult Cardiology Requesting Provider: CHASE LIM MD 24 HR Interval Summary Free Text/Dictation No events. More awake. Family gave her yogurt and she tolerated it Exam/Review of Systems Vital Signs Vitals Vital Signs Date Temp Pulse Resp B/P (MAP) Pulse Ox O2 O2 Flow FiO2 Time Delivery Rate 04/19/18 98.0 93 21 171/81 96 High Flow 08:15 (111) 04/19/18 50 05:50 04/17/18 25.0 08:40 Exam Constitutional: alert Head: normocephalic, atraumatic Neck: No jvd Respiratory: crackles/rales, other (ronchi ); No clear to auscultation Cardiovascular: regular rate and rhythm; No edema Gastrointestinal: soft, non-tender Neurological: nl mental status, nl speech Medications Medications Current Medications Cholecalciferol (Vitamin D) 1,000 unit DAILY PO ; Start 04/17/18 at 09:00 Magnesium Hydroxide (Milk Of Mag) 30 ml DAILY PRN PO CONSTIPATION; Start 04/16/18 at 14:00 Meclizine HCl (Antivert) 25 mg Q8H PRN PO DIZZINESS; Start 04/16/18 at 14:00 Sertraline HCl (Zoloft) 50 mg DAILY PO ; Start 04/17/18 at 09:00 Tramadol HCl (Ultram) 50 mg Q6H PRN PO PAIN Last administered on 04/16/18at 21:30; Admin Dose 50 MG; Start 04/16/18 at 14:00 IV Flush (NS 3 ml) 3 ml PER PROTOCOL IV ; Start 04/16/18 at 14:30 Ondansetron HCl (Zofran Inj) 4 mg Q6H PRN IV NAUSEA AND/OR VOMITING; Start 04/16/18 at 14:30 Enoxaparin Sodium (Lovenox) 30 mg DAILY SC Last administered on 04/18/18at 10:17; Admin Dose 30 MG; Start 04/17/18 at 09:00 Cefepime HCl 50 ml @ 100 mls/hr Q24H IVPB Last administered on 04/18/18at 22:23; Admin Dose 100 MLS/HR; Start 04/16/18 at 21:00 Miscellaneous Information 1 ea NOTE XX ; Start 04/16/18 at 16:30 Glucose (Glutose) 15 gm Q15M PRN PO DECREASED GLUCOSE; Start 04/16/18 at 16:30 Glucose (Glutose) 22.5 gm Q15M PRN PO DECREASED GLUCOSE; Start 04/16/18 at 16:30 Dextrose (D50w Syringe) 25 ml Q15M PRN IV DECREASED GLUCOSE; Start 04/16/18 at 16:30 Dextrose (D50w Syringe) 50 ml Q15M PRN IV DECREASED GLUCOSE; Start 04/16/18 at 16:30 Glucagon (Glucagen) 1 mg Q15M PRN IM DECREASED GLUCOSE; Start 04/16/18 at 16:30 Glucose (Glutose) 15 gm Q15M PRN BUCCAL DECREASED GLUCOSE; Start 04/16/18 at 16:30 Amiodarone HCl 900 mg/Dextrose 500 ml @ 0 mls/hr Q0M IV Last administered on 04/19/18at 06:16; Admin Dose 16.7 MLS/HR; Start 04/16/18 at 17:30 Acetaminophen (Tylenol Liquid) 650 mg Q6H PRN PO PAIN LEVEL 1-3 OR FEVER; Start 04/16/18 at 20:00 Aspirin (Aspirin) 325 mg DAILY PO ; Start 04/17/18 at 09:00 Multivitamins (Multivitamin) 30 ml DAILY PO ; Start 04/17/18 at 09:00 Acetylcysteine (Mucomyst) 3 ml Q6H RESP THERAPY NEB Last administered on 04/19/18 01:37; Admin Dose 3 ML; Start 04/17/18 at 02:00 Insulin Aspart (Novolog Insulin Pen) NOVOLOG *MILD* ALGORI... Q4 SC Last administered on 04/19/18 05:21; Admin Dose 2 UNIT; Start 04/17/18 at 01:00 Levothyroxine Sodium (Synthroid Iv) 62.5 mcg DAILY@06 IV Last administered on 04/19/18 05:52; Admin Dose 62.5 MCG; Start 04/17/18 at 06:00 Pantoprazole (Protonix Iv) 40 mg DAILY@06 IV Last administered on 04/19/18 05:52; Admin Dose 40 MG; Start 04/17/18 at 06:00 Dextrose/Sodium Chloride 1,000 ml @ 50 mls/hr Q20H IV Last administered on 04/19/18 03:23; Admin Dose 50 MLS/HR; Start 04/17/18 at 11:00 Acetaminophen (Tylenol Supp) 650 mg Q4H PRN [place] MILD PAIN(1-3) OR TEMP>38C; Start 04/17/18 at 11:30 Methylprednisolone Sodium Succinate (Solu-Medrol) 40 mg DAILY IV Last administered on 04/18/18at 09:59; Admin Dose 40 MG; Start 04/18/18 at 09:00 Insulin Aspart Prota 70%/Aspart 30% (Novolog Mix (70/ 30) Flexpen) 15 unit DAILY SC Last administered on 04/18/18at 10:29; Admin Dose 15 UNIT; Start 04/18/18 at 09:00 Haloperidol (Haldol) 2 mg Q4 IM Last administered on 04/18/18 12:32; Admin Dose 2 MG; Start 04/18/18 at 13:00 Lorazepam (Ativan) 1 mg Q4H PRN IV anxiety, agitation; Start 04/18/18 at 11:30 Albuterol/ Ipratropium (Duoneb) 3 ml Q6H RESP THERAPY NEB Last administered on 04/19/18 08:19; Admin Dose 3 ML; Start 04/18/18 at 11:00 Eye Lubricant (Artificial Tears Oph) 2 drop QID BOTH EYES Last administered on 04/18/18at 22:21; Admin Dose 2 DROP; Start 04/18/18 at 12:00 Albuterol (Proventil 0.083% (Neb)) 2.5 mg Q2H RESP THERAPY PRN HHN SHORTNESS OF BREATH Last administered on 04/19/18 04:05; Admin Dose 2.5 MG; Start 04/18/18 at 11:00 Quetiapine Fumarate (Seroquel) 25 mg QHS PO ; Start 04/18/18 at 21:00 Lorazepam (Ativan) 1 mg Q8H IV Last administered on 04/19/18at 07:56; Admin Dose 1 MG; Start 04/18/18 at 15:30 Ketorolac Tromethamine (Toradol) 15 mg Q6H PRN IV PAIN Last administered on 04/19/18at 05:52; Admin Dose 15 MG; Start 04/18/18 at 17:00; Stop 04/21/18 at 16:59 BRIAN JIMENES Apr 19, 2018 08:26
--- NOTE | 2018-04-19 08:53 | PN ---
Date/Time of Note Date/Time of Note DATE: 04/19/18 TIME: 08:52 Assessment/Plan VTE Prophylaxis Risk score (from Nsg)>0 risk: 7 SCD applied (from Nsg): Yes Pharmacological prophylaxis: heparin Lines/Catheters IV Catheter Type (from Nrsg): Peripheral IV Urinary Cath still in place: No Assessment/Plan Assessment/Plan 1. 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 They are requesting to feed their mother pureed diet and aware of aspiration risks. They do not want NG or PEG placed at this time. Discussed safety of feeding patient on their own against speech recommendations, but they do not want to starve the patient - Patient still remains on high flow and tapering down as tolerated - Pulmonology consultation appreciated and recommending wean as tolerated. 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 Afib with RVR- cinthia - Cardiology consultation appreciated and will continue on IV amiodarone until able to tolerate PO intake - no anticoagulation started given risk outweigh benefits given patients recent history of fall and deteriorating health since fall 3. hypothyroidism - continue levothyroxine 4. DM - A1c 7.7 - Will continue on ISS and accuchecks - Novolog 70/30 with steroids 5. HTN 6. Rheumatoid arthritis - continue on pain control as tolerated 7. Sacral decubitus ulcer - wound care 8. Disposition - Long discussion held with family. They decided DNR/DNI but chemical code. Not interested in hospice at this time since would like to continue on all treatment. Willing to be evaluated by [facility] for high flow weaning and CM aware. Also discussed not cleared by speech for feeds but they would like to feed their mother pureed diet since she is asking for food. They stated they would rather her of aspiration pneumonia than starvation. Refusing NG tube and PEG. Result Diagram: 04/17/18 1338 04/17/18 1338 Results 24hrs Laboratory Tests Test 04/18/18 10:09 04/18/18 12:34 04/18/18 16:38 04/18/18 22:20 Bedside Glucose 263 H 214 172 219 Test 04/19/18 01:26 04/19/18 05:06 Bedside Glucose 207 206 Subjective 24 Hr Interval Summary Free Text/Dictation Patient more talkative this am and requesting food. Had a long discussion with daughters at bedside and they would like to feed patient. Discussed aspirations and silent aspiration in setting of fragile lungs. They are aware and would rather their mom " of aspiration pneumonia than hunger." Would like to continue all care but requesting DNR/DNI, but chemical code status. Exam/Review of Systems Vital Signs Vitals Vital Signs Date Temp Pulse Resp B/P (MAP) Pulse Ox O2 O2 Flow FiO2 Time Delivery Rate 04/19/18 90 08:42 04/19/18 98.0 21 171/81 96 High Flow 08:15 (111) 04/19/18 50 05:50 04/17/18 25.0 08:40 Exam General: Patient in no acute distress. answering questions appropriately. more awake and lucid this am Neck: Supple Chest: Nontender Lungs: Diminished breath sounds bilaterally, coarse diffusely, no wheezing Heart: Normal S1-S2, sinus rhythm, regular rate. no murmurs appreciated Abdomen: Soft , nontender to palpation of the abdomen, bowel sounds are present Extremities: trace edema LE, no cyanosis or clubbing Skin: no rashes or lesions appreciated Medications Medications Current Medications Cholecalciferol (Vitamin D) 1,000 unit DAILY PO ; Start 04/17/18 at 09:00 Magnesium Hydroxide (Milk Of Mag) 30 ml DAILY PRN PO CONSTIPATION; Start at 14:00 Meclizine HCl (Antivert) 25 mg Q8H PRN PO DIZZINESS; Start 04/16/18 at 14:00 Sertraline HCl (Zoloft) 50 mg DAILY PO ; Start 04/17/18 at 09:00 Tramadol HCl (Ultram) 50 mg Q6H PRN PO PAIN Last administered on 04/16/18at 21:30; Admin Dose 50 MG; Start 04/16/18 at 14:00 IV Flush (NS 3 ml) 3 ml PER PROTOCOL IV ; Start 04/16/18 at 14:30 Ondansetron HCl (Zofran Inj) 4 mg Q6H PRN IV NAUSEA AND/OR VOMITING; Start 04/16/18 at 14:30 Enoxaparin Sodium (Lovenox) 30 mg DAILY SC Last administered on 04/18/18at 10:17; Admin Dose 30 MG; Start 04/17/18 at 09:00 Cefepime HCl 50 ml @ 100 mls/hr Q24H IVPB Last administered on 04/18/18at 22:23; Admin Dose 100 MLS/HR; Start 04/16/18 at 21:00 Miscellaneous Information 1 ea NOTE XX ; Start 04/16/18 at 16:30 Glucose (Glutose) 15 gm Q15M PRN PO DECREASED GLUCOSE; Start 04/16/18 at 16:30 Glucose (Glutose) 22.5 gm Q15M PRN PO DECREASED GLUCOSE; Start 04/16/18 at 16:30 Dextrose (D50w Syringe) 25 ml Q15M PRN IV DECREASED GLUCOSE; Start 04/16/18 at 16:30 Dextrose (D50w Syringe) 50 ml Q15M PRN IV DECREASED GLUCOSE; Start 04/16/18 at 16:30 Glucagon (Glucagen) 1 mg Q15M PRN IM DECREASED GLUCOSE; Start 04/16/18 at 16:30 Glucose (Glutose) 15 gm Q15M PRN BUCCAL DECREASED GLUCOSE; Start 04/16/18 at 16:30 Amiodarone HCl 900 mg/Dextrose 500 ml @ 0 mls/hr Q0M IV Last administered on 04/19/18at 06:16; Admin Dose 16.7 MLS/HR; Start 04/16/18 at 17:30 Acetaminophen (Tylenol Liquid) 650 mg Q6H PRN PO PAIN LEVEL 1-3 OR FEVER; Start 04/16/18 at 20:00 Aspirin (Aspirin) 325 mg DAILY PO ; Start 04/17/18 at 09:00 Multivitamins (Multivitamin) 30 ml DAILY PO ; Start 04/17/18 at 09:00 Acetylcysteine (Mucomyst) 3 ml Q6H RESP THERAPY NEB Last administered on 04/19/18at 08:31; Admin Dose 3 ML; Start 04/17/18 at 02:00 Insulin Aspart (Novolog Insulin Pen) NOVOLOG *MILD* ALGORI... Q4 SC Last administered on 04/19/18at 05:21; Admin Dose 2 UNIT; Start 04/17/18 at 01:00 Levothyroxine Sodium (Synthroid Iv) 62.5 mcg DAILY@06 IV Last administered on 04/19/18at 05:52; Admin Dose 62.5 MCG; Start 04/17/18 at 06:00 Pantoprazole (Protonix Iv) 40 mg DAILY@06 IV Last administered on 04/19/18 05:52; Admin Dose 40 MG; Start 04/17/18 at 06:00 Dextrose/Sodium Chloride 1,000 ml @ 50 mls/hr Q20H IV Last administered on 04/19/18 03:23; Admin Dose 50 MLS/HR; Start 04/17/18 at 11:00 Acetaminophen (Tylenol Supp) 650 mg Q4H PRN AL MILD PAIN(1-3) OR TEMP>38C; Start 04/17/18 at 11:30 Methylprednisolone Sodium Succinate (Solu-Medrol) 40 mg DAILY IV Last administered on 04/18/18 09:59; Admin Dose 40 MG; Start 04/18/18 at 09:00 Insulin Aspart Prota 70%/Aspart 30% (Novolog Mix (70/ 30) Flexpen) 15 unit DAILY SC Last administered on 04/18/18 10:29; Admin Dose 15 UNIT; Start 04/18/18 at 09:00 Haloperidol (Haldol) 2 mg Q4 IM Last administered on 04/18/18 12:32; Admin Dose 2 MG; Start 04/18/18 at 13:00 Lorazepam (Ativan) 1 mg Q4H PRN IV anxiety, agitation; Start 04/18/18 at 11:30 Albuterol/ Ipratropium (Duoneb) 3 ml Q6H RESP THERAPY NEB Last administered on 04/19/18 08:19; Admin Dose 3 ML; Start 04/18/18 at 11:00 Eye Lubricant (Artificial Tears Oph) 2 drop QID BOTH EYES Last administered on 04/18/18 22:21; Admin Dose 2 DROP; Start 04/18/18 at 12:00 Albuterol (Proventil 0.083% (Neb)) 2.5 mg Q2H RESP THERAPY PRN HHN SHORTNESS OF BREATH Last administered on 04/19/18 04:05; Admin Dose 2.5 MG; Start 04/18/18 at 11:00 Quetiapine Fumarate (Seroquel) 25 mg QHS PO ; Start 04/18/18 at 21:00 Lorazepam (Ativan) 1 mg Q8H IV Last administered on 04/19/18 07:56; Admin Dose 1 MG; Start 04/18/18 at 15:30 Ketorolac Tromethamine (Toradol) 15 mg Q6H PRN IV PAIN Last administered on 04/19/18at 05:52; Admin Dose 15 MG; Start 04/18/18 at 17:00; Stop 04/21/18 at 16:59 CHASE LIM MD Apr 19, 2018 08:52
[2018-04-19] MEDS: METHYLPREDNISOLONE 40 MG INJ IV SCH (08:54)
[2018-04-19] MEDS: ARTIFICIAL TEARS 15 ML OPH BOTH EYES SCH ×4 (08:54→21:47)
[2018-04-19] MEDS: CHOLECALCIFEROL 1,000 UNIT TAB PO SCH (08:55)
[2018-04-19] MEDS: MULTIVITAMINS 30 ML CUP PO SCH (08:55)
[2018-04-19] MEDS: SERTRALINE 50 MG TAB PO SCH (08:55)
[2018-04-19] MEDS: ASPIRIN 325 MG TAB PO SCH (08:55)
[2018-04-19] MEDS: BALSAM PERU/CASTOR OIL 60 GM TUBE TOP SCH ×2 (09:00→21:50)
[2018-04-19] MEDS: INSULIN ASP PROT/ASPART (70/30) PEN SC SCH (09:11)
[2018-04-19] MEDS: ENOXAPARIN 30 MG/0.3 ML SYG SC SCH (09:11)
[2018-04-19] MEDS: SOD CHLORIDE 0.45% 1,000 ML IV SCH (10:48)
[2018-04-19] MEDS: CEFEPIME 1GM/50 ML (PMX) 50 ML IVPB SCH (21:00)
[2018-04-20] VITALS (10 sets, daily range): BP systolic 123–165; BP diastolic 59–71; PULSE 88–101; RESP 16–24
[2018-04-20] MEDS: HALOPERIDOL 5 MG INJ IM SCH ×5 (01:00→17:00)
[2018-04-20] MEDS: ACETYLCYSTEINE 20% 4 ML VIAL NEB SCH ×4 (02:00→20:34)
[2018-04-20] MEDS: ALBUTEROL/IPRATROPIUM (NEB) 3 ML AMP NEB SCH ×4 (02:06→20:34)
[2018-04-20] MEDS: ALBUTEROL 0.083% (NEB) 2.5 MG/3 ML AMP HHN PRN (04:50)
[2018-04-20] MEDS: PANTOPRAZOLE 40 MG INJ IV SCH (05:39)
[2018-04-20] MEDS: KETOROLAC 15 MG INJ IV PRN ×2 (05:39→23:50)
[2018-04-20] MEDS: LEVOTHYROXINE 100 MCG VIAL IV SCH (05:39)
[2018-04-20] MEDS: SOD CHLORIDE 0.45% 1,000 ML IV SCH (06:30)
[2018-04-20] MEDS ORDERED: POTASSIUM CHLORIDE 100 ML IVPB STA (07:04)
[2018-04-20] MEDS: INSULIN ASPART [NOVOLOG] 3 ML PEN SC SCH ×4 (08:00→23:51)
[2018-04-20] MEDS: CHOLECALCIFEROL 1,000 UNIT TAB PO SCH (09:00)
[2018-04-20] MEDS: SERTRALINE 50 MG TAB PO SCH (09:00)
[2018-04-20] MEDS: ASPIRIN 325 MG TAB PO SCH (09:00)
[2018-04-20] MEDS: MULTIVITAMINS 30 ML CUP PO SCH (09:00)
[2018-04-20] MEDS: ARTIFICIAL TEARS 15 ML OPH BOTH EYES SCH ×4 (09:19→21:21)
[2018-04-20] MEDS: METHYLPREDNISOLONE 40 MG INJ IV SCH (09:20)
[2018-04-20] MEDS: BALSAM PERU/CASTOR OIL 60 GM TUBE TOP SCH ×2 (09:21→21:22)
[2018-04-20] MEDS: ENOXAPARIN 30 MG/0.3 ML SYG SC SCH (09:31)
[2018-04-20] MEDS: INSULIN ASP PROT/ASPART (70/30) PEN SC SCH (09:32)
[2018-04-20] MEDS: LORAZEPAM 2 MG INJ IV SCH (10:13)
[2018-04-20] MEDS: POTASSIUM CHLORIDE 100 ML IVPB SCH ×3 (10:13→13:46)
--- NOTE | 2018-04-20 11:14 | CONS ---
Date/Time of Note Date/Time of Note DATE: 04/20/18 TIME: 11:11 Assessment/Plan Assessment/Plan Assessment/Plan Assessment and recommendations; 1. Patient with a history of advanced rheumatoid arthritis and likely rheum atoid lung admitted for hypoxemic respiratory failure currently on high flow nasal cannula. 2. History of recent hip surgery. 3. Difficult to rule out some element of pneumonia. 4. Paroxysmal atrial fibrillation, currently in sinus rhythm. Patient on amiodarone drip at 0.5 mg/min. 5. History of diabetes. 6. Anemia. 7. History of hypothyroidism. Continue current supportive care. Wean down FiO2 as tolerated. If the patient is weaned down to acceptable FiO2, patient's family would like to take her home on hospice. I did have a detailed discussion with the patient's daughter at bedside and answered all their questions. Overall prognosis remains very poor. Result Diagram: 04/20/18 0442 04/20/18 0442 Results 24hrs Laboratory Tests Test 04/19/18 13:11 04/19/18 17:06 04/19/18 21:54 04/20/18 04:42 Bedside Glucose 137 114 107 White Blood Count 11.3 H Red Blood Count 3.12 L Hemoglobin 9.2 L Hematocrit 29.8 L Mean Corpuscular 95.5 Volume Mean Corpuscular 29.5 Hemoglobin Mean Corpuscular 30.9 L Hemoglobin Concent Red Cell 14.6 H Distribution Width Platelet Count 324 Mean Platelet Volume 9.4 Immature 0.900 H Granulocytes % Neutrophils % 81.2 H Lymphocytes % 9.7 L Monocytes % 4.6 Eosinophils % 3.5 Basophils % 0.1 Nucleated Red Blood 0.0 Cells % Immature 0.100 H Granulocytes # Neutrophils # 9.2 H Lymphocytes # 1.1 Monocytes # 0.5 Eosinophils # 0.4 Basophils # 0.0 Nucleated Red Blood 0.0 Cells # Sodium Level 141 Potassium Level 2.7 *L Chloride Level 98 Carbon Dioxide Level 39 H Anion Gap 4 L Blood Urea Nitrogen 27 H Creatinine 0.46 Glucose Level 117 Calcium Level 8.7 Phosphorus Level 2.3 L Magnesium Level 1.6 L Albumin 2.6 L Test 04/20/18 08:28 Bedside Glucose 140 Consultation Date/Type/Reason Admit Date/Time Apr 16, 2018 at 13:54 Initial Consult Date 04/17/18 Type of Consult Pulmonary History of presenting illness; patient is an 87-year-old lady who has been transferred over from rehab because of hypoxemia. Upon evaluation chest x-ray and CT scan of chest were done which is showing extensive groundglass opacities with nodular changes. Patient has maintained her high flow nasal cannula with stable O2 saturation. The patient is a very poor historian and history was obtained from medical record as well as from patient's daughter who was present in the room. According to the patient's daughter the patient was doing fine until a few months ago when she sustained a fall resulting in hip fracture and ever since then the patient has had a progressive downhill course patient also has been on home oxygen for the last 2 months. The patient appears awake but lethargic. Was able to answer some questions. Past medical history; 1. 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 2. History of chronic atrial fibrillation. 3. Hypertension. 4. Recent hip fracture. 5. Chronic hypoxemia. 6. Diabetes. Medications; reviewed. Allergies; codeine. Social history; patient has been a lifelong non-smoker. Family history; noncontributory. Patient is with her son. Occupational history; patient has been a housewife. Review of system; difficult to obtain. General exam; elderly female, on high flow nasal cannula. Currently no distress. Requesting Provider: CHASE LIM MD 24 HR Interval Summary Free Text/Dictation Patient's condition is tenuous at best. Still requiring high flow nasal cannula. General exam; elderly female, on high flow nasal cannula. Awake and responsive but appearing lethargic. Currently in no distress. Exam/Review of Systems Vital Signs Vitals Vital Signs Date Temp Pulse Resp B/P (MAP) Pulse Ox O2 O2 Flow FiO2 Time Delivery Rate 04/20/18 97 09:23 04/20/18 45 09:13 04/20/18 30 94 09:04 04/20/18 98.4 131/68 07:59 (89) 04/19/18 Vapotherm 20:45 04/17/18 25.0 08:40 Intake and Output 04/19/18 04/19/18 04/20/18 1515:00 23:00 07:00 IntakeIntake Total 737.1 ml 530 ml 842.1 ml BalanceBalance 737.1 ml 530 ml 842.1 ml Exam H EENT exam; supple neck, no JVD. No lymphadenopathy. Midline trachea. No thyromegaly. Patient is edentulous. No neck masses. Chest exam; diminished breath sounds bilaterally. S1-S2 audible, no murmurs. Regular rhythm. Abdomen exam; soft, scaphoid. No organomegaly. Nondistended. Bowel sounds audible. Extremity exam; no peripheral edema. [employer] exam; patient exhibiting significant lethargic. Medications Medications Current Medications Cholecalciferol (Vitamin D) 1,000 unit DAILY PO ; Start 04/17/18 at 09:00 Magnesium Hydroxide (Milk Of Mag) 30 ml DAILY PRN PO CONSTIPATION; Start 04/16/18 at 14:00 Meclizine HCl (Antivert) 25 mg Q8H PRN PO DIZZINESS; Start 04/16/18 at 14:00 Sertraline HCl (Zoloft) 50 mg DAILY PO ; Start 04/17/18 at 09:00 Tramadol HCl (Ultram) 50 mg Q6H PRN PO PAIN Last administered on 04/16/18at 21:30; Admin Dose 50 MG; Start 04/16/18 at 14:00 IV Flush (NS 3 ml) 3 ml PER PROTOCOL IV ; Start 04/16/18 at 14:30 Ondansetron HCl (Zofran Inj) 4 mg Q6H PRN IV NAUSEA AND/OR VOMITING Last administered on 04/20/18at 05:38; Admin Dose 4 MG; Start 04/16/18 at 14:30 Enoxaparin Sodium (Lovenox) 30 mg DAILY SC Last administered on 04/20/18at 09:31; Admin Dose 30 MG; Start 04/17/18 at 09:00 Cefepime HCl 50 ml @ 100 mls/hr Q24H IVPB Last administered on 04/19/18at 21:00; Admin Dose 100 MLS/HR; Start 04/16/18 at 21:00 Miscellaneous Information 1 ea NOTE XX ; Start 04/16/18 at 16:30 Glucose (Glutose) 15 gm Q15M PRN PO DECREASED GLUCOSE; Start 04/16/18 at 16:30 Glucose (Glutose) 22.5 gm Q15M PRN PO DECREASED GLUCOSE; Start 04/16/18 at 16:30 Dextrose (D50w Syringe) 25 ml Q15M PRN IV DECREASED GLUCOSE; Start 04/16/18 at 16:30 Dextrose (D50w Syringe) 50 ml Q15M PRN IV DECREASED GLUCOSE; Start 04/16/18 at 16:30 Glucagon (Glucagen) 1 mg Q15M PRN IM DECREASED GLUCOSE; Start 04/16/18 at 16:30 Glucose (Glutose) 15 gm Q15M PRN BUCCAL DECREASED GLUCOSE; Start 04/16/18 at 16:30 Amiodarone HCl 900 mg/Dextrose 500 ml @ 0 mls/hr Q0M IV Last administered on 04/19/18at 06:16; Admin Dose 16.7 MLS/HR; Start 04/16/18 at 17:30 Acetaminophen (Tylenol Liquid) 650 mg Q6H PRN PO PAIN LEVEL 1-3 OR FEVER Last administered on 04/19/18at 11:09; Admin Dose 650 MG; Start 04/16/18 at 20:00 Aspirin (Aspirin) 325 mg DAILY PO ; Start 04/17/18 at 09:00 Multivitamins (Multivitamin) 30 ml DAILY PO ; Start 04/17/18 at 09:00 Acetylcysteine (Mucomyst) 3 ml Q6H RESP THERAPY NEB Last administered on 04/20/18at 09:01; Admin Dose 3 ML; Start 04/17/18 at 02:00 Levothyroxine Sodium (Synthroid Iv) 62.5 mcg DAILY@06 IV Last administered on 04/20/18at 05:39; Admin Dose 62.5 MCG; Start 04/17/18 at 06:00 Pantoprazole (Protonix Iv) 40 mg DAILY@06 IV Last administered on 04/20/18at 05:39; Admin Dose 40 MG; Start 04/17/18 at 06:00 Acetaminophen (Tylenol Supp) 650 mg Q4H PRN ID MILD PAIN(1-3) OR TEMP>38C; Start 04/17/18 at 11:30 Methylprednisolone Sodium Succinate (Solu-Medrol) 40 mg DAILY IV Last administered on 04/20/18at 09:20; Admin Dose 40 MG; Start 04/18/18 at 09:00 Insulin Aspart Prota 70%/Aspart 30% (Novolog Mix (70/ 30) Flexpen) 15 unit DAILY SC Last administered on 04/20/18at 09:32; Admin Dose 15 UNIT; Start 04/18/18 at 09:00 Haloperidol (Haldol) 2 mg Q4 IM Last administered on 04/18/18 12:32; Admin Dose 2 MG; Start 04/18/18 at 13:00 Lorazepam (Ativan) 1 mg Q4H PRN IV anxiety, agitation Last administered on 04/20/18 02:26; Admin Dose 1 MG; Start 04/18/18 at 11:30 Albuterol/ Ipratropium (Duoneb) 3 ml Q6H RESP THERAPY NEB Last administered on 04/20/18 08:56; Admin Dose 3 ML; Start 04/18/18 at 11:00 Eye Lubricant (Artificial Tears Oph) 2 drop QID BOTH EYES Last administered on 04/20/18 09:19; Admin Dose 2 DROP; Start 04/18/18 at 12:00 Albuterol (Proventil 0.083% (Neb)) 2.5 mg Q2H RESP THERAPY PRN HHN SHORTNESS OF BREATH Last administered on 04/20/18 04:50; Admin Dose 2.5 MG; Start 04/18/18 at 11:00 Lorazepam (Ativan) 1 mg Q8H IV Last administered on 04/20/18 10:13; Admin Dose 1 MG; Start 04/18/18 at 15:30 Ketorolac Tromethamine (Toradol) 15 mg Q6H PRN IV PAIN Last administered on 04/20/18 05:39; Admin Dose 15 MG; Start 04/18/18 at 17:00; Stop 04/21/18 at 16:59 Sodium Chloride 1,000 ml @ 50 mls/hr Q20H IV Last administered on 04/19/18at 10:48; Admin Dose 50 MLS/HR; Start 04/19/18 at 10:30 Insulin Aspart (Novolog Insulin Pen) NOVOLOG *MILD* ALGORITHM WITH MEALS BEDTIME SC ; Start 04/19/18 at 21:00 Potassium Chloride 100 ml @ 50 mls/hr Q2H IVPB Last administered on 04/20/18 10:13; Admin Dose 50 MLS/HR; Start 04/20/18 at 09:00; Stop 04/20/18 at 14:59 JIMMY DONOHUE Apr 20, 2018 11:14
--- NOTE | 2018-04-20 11:29 | CONS ---
Date/Time of Note Date/Time of Note DATE: 04/20/18 TIME: 11:28 Assessment/Plan Assessment/Plan Assessment/Plan Stated note for hospital visit April 19, 2018 On April 18 patient's daughter came into town and decided to change her CODE STATUS back to full code. However on April [address] Veronica on ce again and decided to change code to chemical code only. Patient's overall clinical condition is not improved. I spoke with patient's son at the bedside and explained to him that in my opinion patient is living hour to hour at this point, he agrees. I explained to the son that I believe that she will probably pass away tonight although he was hoping that she would stay alive until the rest of the family members come into town. I explained that if she stops breathing we would have to do chest compression cardioversion and intubation at this would be a morbid painful end of life. He understood and agrees to change her code to DO NOT RESUSCITATE. I will continue to follow support family members Result Diagram: 04/20/18 0442 04/20/18 0442 Results 24hrs Laboratory Tests Test 04/19/18 13:11 04/19/18 17:06 04/19/18 21:54 04/20/18 04:42 Bedside Glucose 137 114 107 White Blood Count 11.3 H Red Blood Count 3.12 L Hemoglobin 9.2 L Hematocrit 29.8 L Mean Corpuscular 95.5 Volume Mean Corpuscular 29.5 Hemoglobin Mean Corpuscular 30.9 L Hemoglobin Concent Red Cell 14.6 H Distribution Width Platelet Count 324 Mean Platelet Volume 9.4 Immature 0.900 H Granulocytes % Neutrophils % 81.2 H Lymphocytes % 9.7 L Monocytes % 4.6 Eosinophils % 3.5 Basophils % 0.1 Nucleated Red Blood 0.0 Cells % Immature 0.100 H Granulocytes # Neutrophils # 9.2 H Lymphocytes # 1.1 Monocytes # 0.5 Eosinophils # 0.4 Basophils # 0.0 Nucleated Red Blood 0.0 Cells # Sodium Level 141 Potassium Level 2.7 *L Chloride Level 98 Carbon Dioxide Level 39 H Anion Gap 4 L Blood Urea Nitrogen 27 H Creatinine 0.46 Glucose Level 117 Calcium Level 8.7 Phosphorus Level 2.3 L Magnesium Level 1.6 L Albumin 2.6 L Test 04/20/18 08:28 Bedside Glucose 140 Consultation Date/Type/Reason Admit Date/Time Apr 16, 2018 at 13:54 Past Medical History Medical History: hypertension, hypothyroid, other (high blood sugar secondary to steroids ) Medications Current Medications Cholecalciferol (Vitamin D) 1,000 unit DAILY PO ; Start 04/17/18 at 09:00 Magnesium Hydroxide (Milk Of Mag) 30 ml DAILY PRN PO CONSTIPATION; Start 04/16/18 at 14:00 Meclizine HCl (Antivert) 25 mg Q8H PRN PO DIZZINESS; Start 04/16/18 at 14:00 Sertraline HCl (Zoloft) 50 mg DAILY PO ; Start 04/17/18 at 09:00 Tramadol HCl (Ultram) 50 mg Q6H PRN PO PAIN Last administered on 04/16/18at 21:30; Admin Dose 50 MG; Start 04/16/18 at 14:00 IV Flush (NS 3 ml) 3 ml PER PROTOCOL IV ; Start 04/16/18 at 14:30 Ondansetron HCl (Zofran Inj) 4 mg Q6H PRN IV NAUSEA AND/OR VOMITING Last administered on 04/20/18at 05:38; Admin Dose 4 MG; Start 04/16/18 at 14:30 Enoxaparin Sodium (Lovenox) 30 mg DAILY SC Last administered on 04/20/18at 09:31; Admin Dose 30 MG; Start 04/17/18 at 09:00 Cefepime HCl 50 ml @ 100 mls/hr Q24H IVPB Last administered on 04/19/18at 21:00; Admin Dose 100 MLS/HR; Start 04/16/18 at 21:00 Miscellaneous Information 1 ea NOTE XX ; Start 04/16/18 at 16:30 Glucose (Glutose) 15 gm Q15M PRN PO DECREASED GLUCOSE; Start 04/16/18 at 16:30 Glucose (Glutose) 22.5 gm Q15M PRN PO DECREASED GLUCOSE; Start 04/16/18 at 16:30 Dextrose (D50w Syringe) 25 ml Q15M PRN IV DECREASED GLUCOSE; Start 04/16/18 at 16:30 Dextrose (D50w Syringe) 50 ml Q15M PRN IV DECREASED GLUCOSE; Start 04/16/18 at 16:30 Glucagon (Glucagen) 1 mg Q15M PRN IM DECREASED GLUCOSE; Start 04/16/18 at 16:30 Glucose (Glutose) 15 gm Q15M PRN BUCCAL DECREASED GLUCOSE; Start 04/16/18 at 16:30 Amiodarone HCl 900 mg/Dextrose 500 ml @ 0 mls/hr Q0M IV Last administered on 04/19/18 06:16; Admin Dose 16.7 MLS/HR; Start 04/16/18 at 17:30 Acetaminophen (Tylenol Liquid) 650 mg Q6H PRN PO PAIN LEVEL 1-3 OR FEVER Last administered on 04/19/18 11:09; Admin Dose 650 MG; Start 04/16/18 at 20:00 Aspirin (Aspirin) 325 mg DAILY PO ; Start 04/17/18 at 09:00 Multivitamins (Multivitamin) 30 ml DAILY PO ; Start 04/17/18 at 09:00 Acetylcysteine (Mucomyst) 3 ml Q6H RESP THERAPY NEB Last administered on 04/20/18 09:01; Admin Dose 3 ML; Start 04/17/18 at 02:00 Levothyroxine Sodium (Synthroid Iv) 62.5 mcg DAILY@06 IV Last administered on 04/20/18 05:39; Admin Dose 62.5 MCG; Start 04/17/18 at 06:00 Pantoprazole (Protonix Iv) 40 mg DAILY@06 IV Last administered on 04/20/18 05 :39; Admin Dose 40 MG; Start 04/17/18 at 06:00 Acetaminophen (Tylenol Supp) 650 mg Q4H PRN [place] MILD PAIN(1-3) OR TEMP>38C; Start 04/17/18 at 11:30 Methylprednisolone Sodium Succinate (Solu-Medrol) 40 mg DAILY IV Last administered on 04/20/18 09:20; Admin Dose 40 MG; Start 04/18/18 at 09:00 Insulin Aspart Prota 70%/Aspart 30% (Novolog Mix (70/ 30) Flexpen) 15 unit DAILY SC Last administered on 04/20/18 09:32; Admin Dose 15 UNIT; Start 04/18/18 at 09:00 Haloperidol (Haldol) 2 mg Q4 IM Last administered on 04/18/18 12:32; Admin Dose 2 MG; Start 04/18/18 at 13:00 Lorazepam (Ativan) 1 mg Q4H PRN IV anxiety, agitation Last administered on 04/20/18 02:26; Admin Dose 1 MG; Start 04/18/18 at 11:30 Albuterol/ Ipratropium (Duoneb) 3 ml Q6H RESP THERAPY NEB Last administered on 04/20/18at 08:56; Admin Dose 3 ML; Start 04/18/18 at 11:00 Eye Lubricant (Artificial Tears Oph) 2 drop QID BOTH EYES Last administered on 04/20/18at 09:19; Admin Dose 2 DROP; Start 04/18/18 at 12:00 Albuterol (Proventil 0.083% (Neb)) 2.5 mg Q2H RESP THERAPY PRN HHN SHORTNESS OF BREATH Last administered on 04/20/18 04:50; Admin Dose 2.5 MG; Start 04/18/18 at 11:00 Lorazepam (Ativan) 1 mg Q8H IV Last administered on 04/20/18at 10:13; Admin Dose 1 MG; Start 04/18/18 at 15:30 Ketorolac Tromethamine (Toradol) 15 mg Q6H PRN IV PAIN Last administered on 04/20/18at 05:39; Admin Dose 15 MG; Start 04/18/18 at 17:00; Stop 04/21/18 at 16:59 Sodium Chloride 1,000 ml @ 50 mls/hr Q20H IV Last administered on 04/19/18at 10:48; Admin Dose 50 MLS/HR; Start 04/19/18 at 10:30 Insulin Aspart (Novolog Insulin Pen) NOVOLOG *MILD* ALGORITHM WITH MEALS BEDTIME SC ; Start 04/19/18 at 21:00 Potassium Chloride 100 ml @ 50 mls/hr Q2H IVPB Last administered on 04/20/18at 10:13; Admin Dose 50 MLS/HR; Start 04/20/18 at 09:00; Stop 04/20/18 at 14:59 Allergies: Coded Allergies: codeine (Verified Allergy, Unknown, 04/16/18) Past Surgical History Past Surgical Hx: other (unable to obtain) Social History Alcohol Use: none Smoking Status: Unknown if ever smoked Drug Use: none Exam/Review of Systems Vital Signs Vitals Vital Signs Date Temp Pulse Resp B/P (MAP) Pulse Ox O2 O2 Flow FiO2 Time Delivery Rate 04/20/18 97 09:23 04/20/18 45 09:13 04/20/18 30 94 09:04 04/20/18 98.4 131/68 07:59 (89) 04/19/18 Vapotherm 20:45 04/17/18 25.0 08:40 Intake and Output 04/19/18 04/19/18 04/20/18 1515:00 23:00 07:00 IntakeIntake Total 737.1 ml 530 ml 842.1 ml BalanceBalance 737.1 ml 530 ml 842.1 ml Exam Constitutional: distress, frail Psych: confusion Respiratory: congested cough, crackles/rales Neurological: other (Confused, oriented x0, cranial nerves grossly intact, no purposeful movement,) Medications Medications Current Medications Cholecalciferol (Vitamin D) 1,000 unit DAILY PO ; Start 04/17/18 at 09:00 Magnesium Hydroxide (Milk Of Mag) 30 ml DAILY PRN PO CONSTIPATION; Start 01/23 at 14:00 Meclizine HCl (Antivert) 25 mg Q8H PRN PO DIZZINESS; Start 04/16/18 at 14:00 Sertraline HCl (Zoloft) 50 mg DAILY PO ; Start 04/17/18 at 09:00 Tramadol HCl (Ultram) 50 mg Q6H PRN PO PAIN Last administered on 04/16/18at 21:30; Admin Dose 50 MG; Start 04/16/18 at 14:00 IV Flush (NS 3 ml) 3 ml PER PROTOCOL IV ; Start 04/16/18 at 14:30 Ondansetron HCl (Zofran Inj) 4 mg Q6H PRN IV NAUSEA AND/OR VOMITING Last administered on 04/20/18at 05:38; Admin Dose 4 MG; Start 04/16/18 at 14:30 Enoxaparin Sodium (Lovenox) 30 mg DAILY SC Last administered on 04/20/18at 09:31; Admin Dose 30 MG; Start 04/17/18 at 09:00 Cefepime HCl 50 ml @ 100 mls/hr Q24H IVPB Last administered on 04/19/18at 21:0 0; Admin Dose 100 MLS/HR; Start 04/16/18 at 21:00 Miscellaneous Information 1 ea NOTE XX ; Start 04/16/18 at 16:30 Glucose (Glutose) 15 gm Q15M PRN PO DECREASED GLUCOSE; Start 04/16/18 at 16:30 Glucose (Glutose) 22.5 gm Q15M PRN PO DECREASED GLUCOSE; Start 04/16/18 at 16:30 Dextrose (D50w Syringe) 25 ml Q15M PRN IV DECREASED GLUCOSE; Start 04/16/18 at 16:30 Dextrose (D50w Syringe) 50 ml Q15M PRN IV DECREASED GLUCOSE; Start 04/16/18 at 16:30 Glucagon (Glucagen) 1 mg Q15M PRN IM DECREASED GLUCOSE; Start 04/16/18 at 16:30 Glucose (Glutose) 15 gm Q15M PRN BUCCAL DECREASED GLUCOSE; Start 04/16/18 at 16:30 Amiodarone HCl 900 mg/Dextrose 500 ml @ 0 mls/hr Q0M IV Last administered on 04/19/18at 06:16; Admin Dose 16.7 MLS/HR; Start 04/16/18 at 17:30 Acetaminophen (Tylenol Liquid) 650 mg Q6H PRN PO PAIN LEVEL 1-3 OR FEVER Last administered on 04/19/18at 11:09; Admin Dose 650 MG; Start 04/16/18 at 20:00 Aspirin (Aspirin) 325 mg DAILY PO ; Start 04/17/18 at 09:00 Multivitamins (Multivitamin) 30 ml DAILY PO ; Start 04/17/18 at 09:00 Acetylcysteine (Mucomyst) 3 ml Q6H RESP THERAPY NEB Last administered on 04/20/18at 09:01; Admin Dose 3 ML; Start 04/17/18 at 02:00 Levothyroxine Sodium (Synthroid Iv) 62.5 mcg DAILY@06 IV Last administered on 04/20/18at 05:39; Admin Dose 62.5 MCG; Start 04/17/18 at 06:00 Pantoprazole (Protonix Iv) 40 mg DAILY@06 IV Last administered on 04/20/18at 05:39; Admin Dose 40 MG; Start 04/17/18 at 06:00 Acetaminophen (Tylenol Supp) 650 mg Q4H PRN [place] MILD PAIN(1-3) OR TEMP>38C; Start 04/17/18 at 11:30 Methylprednisolone Sodium Succinate (Solu-Medrol) 40 mg DAILY IV Last administered on 04/20/18at 09:20; Admin Dose 40 MG; Start 04/18/18 at 09:00 Insulin Aspart Prota 70%/Aspart 30% (Novolog Mix (70/ 30) Flexpen) 15 unit DAILY SC Last administered on 04/20/18 09:32; Admin Dose 15 UNIT; Start 04/18/18 at 09:00 Haloperidol (Haldol) 2 mg Q4 IM Last administered on 04/18/18 12:32; Admin Dose 2 MG; Start 04/18/18 at 13:00 Lorazepam (Ativan) 1 mg Q4H PRN IV anxiety, agitation Last administered on 04/20/18 02:26; Admin Dose 1 MG; Start 04/18/18 at 11:30 Albuterol/ Ipratropium (Duoneb) 3 ml Q6H RESP THERAPY NEB Last administered on 04/20/18 08:56; Admin Dose 3 ML; Start 04/18/18 at 11:00 Eye Lubricant (Artificial Tears Oph) 2 drop QID BOTH EYES Last administered on 04/20/18 09:19; Admin Dose 2 DROP; Start 04/18/18 at 12:00 Albuterol (Proventil 0.083% (Neb)) 2.5 mg Q2H RESP THERAPY PRN HHN SHORTNESS OF BREATH Last administered on 04/20/18 04:50; Admin Dose 2.5 MG; Start 04/18/18 at 11:00 Lorazepam (Ativan) 1 mg Q8H IV Last administered on 04/20/18 10:13; Admin Dose 1 MG; Start 04/18/18 at 15:30 Ketorolac Tromethamine (Toradol) 15 mg Q6H PRN IV PAIN Last administered on 04/20/18 05:39; Admin Dose 15 MG; Start 04/18/18 at 17:00; Stop 04/21/18 at 16:59 Sodium Chloride 1,000 ml @ 50 mls/hr Q20H IV Last administered on 04/19/18 10 :48; Admin Dose 50 MLS/HR; Start 04/19/18 at 10:30 Insulin Aspart (Novolog Insulin Pen) NOVOLOG *MILD* ALGORITHM WITH MEALS BEDTIME SC ; Start 04/19/18 at 21:00 Potassium Chloride 100 ml @ 50 mls/hr Q2H IVPB Last administered on 04/20/18 10:13; Admin Dose 50 MLS/HR; Start 04/20/18 at 09:00; Stop 04/20/18 at 14:59 RADHA GUEVARA Apr 20, 2018 11:29
--- NOTE | 2018-04-20 12:41 | CONS ---
Date/Time of Note Date/Time of Note DATE: 04/20/18 TIME: 12:40 Assessment/Plan Assessment/Plan Hospital Course New onset atrial fibrillation with RVR: No known history. Likely due to underlying respiratory failure. Converted back to sinus after amiodarone drip Respiratory failure:CT shows possible bronchiolitis as well as right hilar mass compressing right airway. Does not appear to have CHF at this time PNA Right hilar mass DM HTN Hypothyroidism -continue amiodarone 0.5mg/min until can tolerate PO Result Diagram: 04/20/18 0442 04/20/18 0442 Results 24hrs Laboratory Tests Test 04/19/18 13:11 04/19/18 17:06 04/19/18 21:54 04/20/18 04:42 Bedside Glucose 137 114 107 White Blood Count 11.3 H Red Blood Count 3.12 L Hemoglobin 9.2 L Hematocrit 29.8 L Mean Corpuscular 95.5 Volume Mean Corpuscular 29.5 Hemoglobin Mean Corpuscular 30.9 L Hemoglobin Concent Red Cell 14.6 H Distribution Width Platelet Count 324 Mean Platelet Volume 9.4 Immature 0.900 H Granulocytes % Neutrophils % 81.2 H Lymphocytes % 9.7 L Monocytes % 4.6 Eosinophils % 3.5 Basophils % 0.1 Nucleated Red Blood 0.0 Cells % Immature 0.100 H Granulocytes # Neutrophils # 9.2 H Lymphocytes # 1.1 Monocytes # 0.5 Eosinophils # 0.4 Basophils # 0.0 Nucleated Red Blood 0.0 Cells # Sodium Level 141 Potassium Level 2.7 *L Chloride Level 98 Carbon Dioxide Level 39 H Anion Gap 4 L Blood Urea Nitrogen 27 H Creatinine 0.46 Glucose Level 117 Calcium Level 8.7 Phosphorus Level 2.3 L Magnesium Level 1.6 L Albumin 2.6 L Test 04/20/18 08:28 Bedside Glucose 140 Consultation Date/Type/Reason Admit Date/Time Apr 16, 2018 at 13:54 Initial Consult Date 04/17/18 Type of Consult Cardiology Requesting Provider: CHASE LIM MD 24 HR Interval Summary Free Text/Dictation Remains in sinus. Respiratory status unchanged Exam/Review of Systems Vital Signs Vitals Vital Signs Date Temp Pulse Resp B/P (MAP) Pulse Ox O2 O2 Flow FiO2 Time Delivery Rate 04/20/18 97.5 97 21 123/59 93 11:52 (80) 04/20/18 45 09:13 04/19/18 Vapotherm 20:45 04/17/18 25.0 08:40 Intake and Output 04/19/18 04/19/18 04/20/18 1515:00 23:00 07:00 IntakeIntake Total 737.1 ml 530 ml 842.1 ml BalanceBalance 737.1 ml 530 ml 842.1 ml Exam Constitutional: alert Neck: supple; No jvd Respiratory: No clear to auscultation Cardiovascular: regular rate and rhythm; No edema, No systolic murmur Gastrointestinal: soft, non-tender; No distended Neurological: nl mental status; No nl speech Medications Medications Current Medications Cholecalciferol (Vitamin D) 1,000 unit DAILY PO ; Start 04/17/18 at 09:00 Magnesium Hydroxide (Milk Of Mag) 30 ml DAILY PRN PO CONSTIPATION; Start 04/16/18 at 14:00 Meclizine HCl (Antivert) 25 mg Q8H PRN PO DIZZINESS; Start 04/16/18 at 14:00 Sertraline HCl (Zoloft) 50 mg DAILY PO ; Start 04/17/18 at 09:00 Tramadol HCl (Ultram) 50 mg Q6H PRN PO PAIN Last administered on 04/16/18at 21:30; Admin Dose 50 MG; Start 04/16/18 at 14:00 IV Flush (NS 3 ml) 3 ml PER PROTOCOL IV ; Start 04/16/18 at 14:30 Ondansetron HCl (Zofran Inj) 4 mg Q6H PRN IV NAUSEA AND/OR VOMITING Last administered on 04/20/18at 05:38; Admin Dose 4 MG; Start 04/16/18 at 14:30 Enoxaparin Sodium (Lovenox) 30 mg DAILY SC Last administered on 04/20/18at 09:31; Admin Dose 30 MG; Start 04/17/18 at 09:00 Cefepime HCl 50 ml @ 100 mls/hr Q24H IVPB Last administered on 04/19/18at 21:00; Admin Dose 100 MLS/HR; Start 04/16/18 at 21:00 Miscellaneous Information 1 ea NOTE XX ; Start 04/16/18 at 16:30 Glucose (Glutose) 15 gm Q15M PRN PO DECREASED GLUCOSE; Start 04/16/18 at 16:30 Glucose (Glutose) 22.5 gm Q15M PRN PO DECREASED GLUCOSE; Start 04/16/18 at 16:30 Dextrose (D50w Syringe) 25 ml Q15M PRN IV DECREASED GLUCOSE; Start 04/16/18 at 16:30 Dextrose (D50w Syringe) 50 ml Q15M PRN IV DECREASED GLUCOSE; Start 04/16/18 at 16:30 Glucagon (Glucagen) 1 mg Q15M PRN IM DECREASED GLUCOSE; Start 04/16/18 at 16:30 Glucose (Glutose) 15 gm Q15M PRN BUCCAL DECREASED GLUCOSE; Start 04/16/18 at 16:30 Amiodarone HCl 900 mg/Dextrose 500 ml @ 0 mls/hr Q0M IV Last administered on 04/19/18at 06:16; Admin Dose 16.7 MLS/HR; Start 04/16/18 at 17:30 Acetaminophen (Tylenol Liquid) 650 mg Q6H PRN PO PAIN LEVEL 1-3 OR FEVER Last administered on 04/19/18at 11:09; Admin Dose 650 MG; Start 04/16/18 at 20:00 Aspirin (Aspirin) 325 mg DAILY PO ; Start 04/17/18 at 09:00 Multivitamins (Multivitamin) 30 ml DAILY PO ; Start 04/17/18 at 09:00 Acetylcysteine (Mucomyst) 3 ml Q6H RESP THERAPY NEB Last administered on 04/20/18at 09:01; Admin Dose 3 ML; Start 04/17/18 at 02:00 Levothyroxine Sodium (Synthroid Iv) 62.5 mcg DAILY@06 IV Last administered on 04/20/18at 05:39; Admin Dose 62.5 MCG; Start 04/17/18 at 06:00 Pantoprazole (Protonix Iv) 40 mg DAILY@06 IV Last administered on 04/20/18at 05:39; Admin Dose 40 MG; Start 04/17/18 at 06:00 Acetaminophen (Tylenol Supp) 650 mg Q4H PRN [place] MILD PAIN(1-3) OR TEMP>38C; Start 04/17/18 at 11:30 Methylprednisolone Sodium Succinate (Solu-Medrol) 40 mg DAILY IV Last administered on 04/20/18at 09:20; Admin Dose 40 MG; Start 04/18/18 at 09:00 Insulin Aspart Prota 70%/Aspart 30% (Novolog Mix (70/ 30) Flexpen) 15 unit DAILY SC Last administered on 04/20/18 09:32; Admin Dose 15 UNIT; Start 04/18/18 at 09:00 Haloperidol (Haldol) 2 mg Q4 IM Last administered on 04/18/18 12:32; Admin Dose 2 MG; Start 04/18/18 at 13:00 Lorazepam (Ativan) 1 mg Q4H PRN IV anxiety, agitation Last administered on 04/20/18 02:26; Admin Dose 1 MG; Start 04/18/18 at 11:30 Albuterol/ Ipratropium (Duoneb) 3 ml Q6H RESP THERAPY NEB Last administered on 04/20/18 08:56; Admin Dose 3 ML; Start 04/18/18 at 11:00 Eye Lubricant (Artificial Tears Oph) 2 drop QID BOTH EYES Last administered on 04/20/18 12:37; Admin Dose 2 DROP; Start 04/18/18 at 12:00 Albuterol (Proventil 0.083% (Neb)) 2.5 mg Q2H RESP THERAPY PRN HHN SHORTNESS OF BREATH Last administered on 04/20/18 04:50; Admin Dose 2.5 MG; Start 04/18/18 at 11:00 Lorazepam (Ativan) 1 mg Q8H IV Last administered on 04/20/18 10:13; Admin Dose 1 MG; Start 04/18/18 at 15:30 Ketorolac Tromethamine (Toradol) 15 mg Q6H PRN IV PAIN Last administered on 04/20/18 05:39; Admin Dose 15 MG; Start 04/18/18 at 17:00; Stop 04/21/18 at 16:59 Sodium Chloride 1,000 ml @ 50 mls/hr Q20H IV Last administered on 04/19/18 10:48; Admin Dose 50 MLS/HR; Start 04/19/18 at 10:30 Insulin Aspart (Novolog Insulin Pen) NOVOLOG *MILD* ALGORITHM WITH MEALS BEDTIME SC ; Start 04/19/18 at 21:00 Potassium Chloride 100 ml @ 50 mls/hr Q2H IVPB Last administered on 04/20/18 12:37; Admin Dose 50 MLS/HR; Start 04/20/18 at 09:00; Stop 04/20/18 at 14:59 BRIAN JIMENES Apr 20, 2018 12:41
[2018-04-20] MEDS: AMIODARONE 900 MG in DEXTROSE 5% 482 ML IV SCH (13:46)
[2018-04-20] MEDS ORDERED: DEXTROSE 5%-0.45% NACL 1,000 ML IV SCH ×2 (15:30→19:00)
[2018-04-20] MEDS ORDERED: SOD CHLORIDE 0.45% 1,000 ML IV SCH (15:30)
[2018-04-20] MEDS ORDERED: MAGNESIUM SULFATE 2 GM/50 ML 50 ML IVPB ONE (15:30)
[2018-04-20] MEDS ORDERED: traZODone 50 MG TAB PO PRN (16:00)
[2018-04-20] MEDS ORDERED: HALOPERIDOL 5 MG INJ IM PRN (19:00)
--- NOTE | 2018-04-20 19:01 | PN ---
Date/Time of Note Date/Time of Note DATE: 04/20/18 TIME: 19:01 Objective Vitals Vital Signs Date Temp Pulse Resp B/P (MAP) Pulse Ox O2 O2 Flow FiO2 Time Delivery Rate 04/20/18 93 17:14 04/20/18 98.1 22 138/67 96 15:21 (90) 04/20/18 45 15:17 04/20/18 Vapotherm 09:00 04/17/18 25.0 08:40 Intake and Output 04/19/18 04/19/18 04/20/18 1515:00 23:00 07:00 IntakeIntake Total 737.1 ml 530 ml 842.1 ml BalanceBalance 737.1 ml 530 ml 842.1 ml Results Result Diagram: 04/20/1844104/20/182 Medications Medications Current Medications Cholecalciferol (Vitamin D) 1,000 unit DAILY PO ; Start 04/17/18 at 09:00 Magnesium Hydroxide (Milk Of Mag) 30 ml DAILY PRN PO CONSTIPATION; Start 04/16/18 at 14:00 Meclizine HCl (Antivert) 25 mg Q8H PRN PO DIZZINESS; Start 04/16/18 at 14:00 Sertraline HCl (Zoloft) 50 mg DAILY PO ; Start 04/17/18 at 09:00 Tramadol HCl (Ultram) 50 mg Q6H PRN PO PAIN Last administered on 04/16/18at 21:30; Admin Dose 50 MG; Start 04/16/18 at 14:00 IV Flush (NS 3 ml) 3 ml PER PROTOCOL IV ; Start 04/16/18 at 14:30 Ondansetron HCl (Zofran Inj) 4 mg Q6H PRN IV NAUSEA AND/OR VOMITING Last administered on 04/20/18at 05:38; Admin Dose 4 MG; Start 04/16/18 at 14:30 Cefepime HCl 50 ml @ 100 mls/hr Q24H IVPB Last administered on 04/19/18at 21:00; Admin Dose 100 MLS/HR; Start 04/16/18 at 21:00 Miscellaneous Information 1 ea NOTE XX ; Start 04/16/18 at 16:30 Glucose (Glutose) 15 gm Q15M PRN PO DECREASED GLUCOSE; Start 04/16/18 at 16:30 Glucose (Glutose) 22.5 gm Q15M PRN PO DECREASED GLUCOSE; Start 04/16/18 at 16:30 Dextrose (D50w Syringe) 25 ml Q15M PRN IV DECREASED GLUCOSE; Start 04/16/18 at 16:30 Dextrose (D50w Syringe) 50 ml Q15M PRN IV DECREASED GLUCOSE; Start 04/16/18 at 16:30 Glucagon (Glucagen) 1 mg Q15M PRN IM DECREASED GLUCOSE; Start 04/16/18 at 16:30 Glucose (Glutose) 15 gm Q15M PRN BUCCAL DECREASED GLUCOSE; Start 04/16/18 at 16:30 Amiodarone HCl 900 mg/Dextrose 500 ml @ 0 mls/hr Q0M IV Last administered on 04/20/18at 13:46; Admin Dose 0.5 MLS/HR; Start 04/16/18 at 17:30 Acetaminophen (Tylenol Liquid) 650 mg Q6H PRN PO PAIN LEVEL 1-3 OR FEVER Last administered on 04/19/18at 11:09; Admin Dose 650 MG; Start 04/16/18 at 20:00 Aspirin (Aspirin) 325 mg DAILY PO ; Start 04/17/18 at 09:00 Multivitamins (Multivitamin) 30 ml DAILY PO ; Start 04/17/18 at 09:00 Acetylcysteine (Mucomyst) 3 ml Q6H RESP THERAPY NEB Last administered on 04/20/18at 15:11; Admin Dose 3 ML; Start 04/17/18 at 02:00 Levothyroxine Sodium (Synthroid Iv) 62.5 mcg DAILY@06 IV Last administered on 04/20/18at 05:39; Admin Dose 62.5 MCG; Start 04/17/18 at 06:00 Pantoprazole (Protonix Iv) 40 mg DAILY@06 IV Last administered on 04/20/18at 05:39; Admin Dose 40 MG; Start 04/17/18 at 06:00 Acetaminophen (Tylenol Supp) 650 mg Q4H PRN [place] MILD PAIN(1-3) OR TEMP>38C; Start 04/17/18 at 11:30 Methylprednisolone Sodium Succinate (Solu-Medrol) 40 mg DAILY IV Last a dministered on 04/20/18at 09:20; Admin Dose 40 MG; Start 04/18/18 at 09:00 Albuterol/ Ipratropium (Duoneb) 3 ml Q6H RESP THERAPY NEB Last administered on 04/20/18at 15:09; Admin Dose 3 ML; Start 04/18/18 at 11:00 Eye Lubricant (Artificial Tears Oph) 2 drop QID BOTH EYES Last administered on 04/20/18at 17:04; Admin Dose 2 DROP; Start 04/18/18 at 12:00 Albuterol (Proventil 0.083% (Neb)) 2.5 mg Q2H RESP THERAPY PRN HHN SHORTNESS OF BREATH Last administered on 04/20/18at 04:50; Admin Dose 2.5 MG; Start 04/18/18 at 11:00 Ketorolac Tromethamine (Toradol) 15 mg Q6H PRN IV PAIN Last administered on at 05:39; Admin Dose 15 MG; Start 04/18/18 at 17:00; Stop 04/21/18 at 16:59 Lorazepam (Ativan) 0.5 mg Q8H PRN IV anxiety; Start 04/20/18 at 15:30 Trazodone HCl (Desyrel) 50 mg HS PRN PO insomnia; Start 04/20/18 at 16:00 Dextrose/Sodium Chloride 1,000 ml @ 40 mls/hr Q24H IV ; Start 04/20/18 at 19:00; Status UNV Haloperidol (Haldol) 2 mg Q6 PRN IM agitation; Start 04/20/18 at 19:00; Status UNV Insulin Aspart (Novolog Insulin Pen) NOVOLOG *MILD* ALGORITHM Q6 SC ; Start 04/21/18 at 00:00; Status UNV Insulin Glargine (Lantus) 10 units DAILY@2000 SC ; Start 04/20/18 at 20:00; Status UNV VTE Prophylaxis Risk score (from Nsg)>0 risk: 7 SCD applied (from Nsg): Yes Lines/Catheters IV Catheter Type: Latif in Place: Yes Cont'd latif catheter reason: skin wounds contaminated by urine Assessment/Plan Hospital Course Subjective Patient very sleepy, however does wake up on stimulation Objective Physical exam General: Patient is laying in bed and answers questions slowly at times Mentation: Patient is alert but not fully oriented Head: Normocephalic atraumatic Eyes: EOMI, pupils reactive to light Neck: Supple, nontender, midline Respiratory: Coarse to auscultation bilaterally Cardiovascular: regular rate, no obvious murmurs Gastrointestinal: non-tender to palpation, bowel sounds heard. Neurological: Moves all extremities spontaneously, but minimally at this time due to fatigue or weakness Skin: No new skin lesions Assessment/Plan 1. 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 Veronica a long discussion with family and states she has probably been aspirating for years. They are requesting to feed their mother pureed diet and aware of aspiration risks. They do not want NG or PEG placed at this time. Discussed safety of feeding patient on their own against speech recommendations, but they do not want to starve the patient. -I also explained to them the risks of taking full responsibility of letting the patient eat which included a very very highly likelihood of patient developing pneumonia, the patient's son and daughters are medical power of research attorney and decided that since patient wants to eat they will feed her and accept all responsibility even if it leads to her and debility permanently. They understand that this is against my medical advice at this time. - Patient still remains on high flow and tapering down as tolerated - Pulmonology consultation appreciated and recommending wean as tolerated. 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 Afib with RVR- cinthia - Cardiology consultation appreciated and will continue on IV amiodarone until able to tolerate PO intake - no anticoagulation started given risk outweigh benefits given patients recent history of fall and deteriorating health since fall 3. hypothyroidism - continue levothyroxine 4. DM - A1c 7.7 - Will continue on ISS and accuchecks - switched to lantus/ISS 5. HTN 6. Rheumatoid arthritis - continue on pain control as tolerated 7. Sacral decubitus ulcer - wound care 8. Disposition -Another long discussion with family, patient's family aware of the risks of and debility due to feeding patient's and aspiration pneumonia would like to make patient as comfortable as possible as patient is always asking for food. They would like the continued feeding of patient even when risks such as pneumonia due to aspiration is highly likely. -Patient's family would like to eventually take patient home on home hospice however there are multiple barriers to this including a very high O2 requirement at this time, will take this day by day. MANUELITO AC Apr 20, 2018 19:01
[2018-04-20] MEDS ORDERED: INSULIN GLARGINE [LANTus] (100 UNITS/ML) SYG SC SCH (20:00)
[2018-04-20] MEDS: CEFEPIME 1GM/50 ML (PMX) 50 ML IVPB SCH (21:18)
[2018-04-21] VITALS (12 sets, daily range): BP systolic 122–146; BP diastolic 59–65; PULSE 81–90; RESP 22–30
[2018-04-21] MEDS: ALBUTEROL/IPRATROPIUM (NEB) 3 ML AMP NEB SCH ×4 (01:50→20:11)
[2018-04-21] MEDS: ACETYLCYSTEINE 20% 4 ML VIAL NEB SCH ×4 (01:51→20:11)
[2018-04-21] MEDS: PANTOPRAZOLE 40 MG INJ IV SCH (05:00)
[2018-04-21] MEDS: LEVOTHYROXINE 100 MCG VIAL IV SCH (05:01)
[2018-04-21] MEDS: INSULIN ASPART [NOVOLOG] 3 ML PEN SC SCH ×3 (05:10→17:29)
[2018-04-21] MEDS: MULTIVITAMINS 30 ML CUP PO SCH (09:00)
[2018-04-21] MEDS: ASPIRIN 325 MG TAB PO SCH (09:00)
[2018-04-21] MEDS: CHOLECALCIFEROL 1,000 UNIT TAB PO SCH (09:00)
[2018-04-21] MEDS: SERTRALINE 50 MG TAB PO SCH (09:00)
[2018-04-21] MEDS: ARTIFICIAL TEARS 15 ML OPH BOTH EYES SCH ×4 (09:31→20:57)
[2018-04-21] MEDS: METHYLPREDNISOLONE 40 MG INJ IV SCH ×3 (09:31→22:35)
[2018-04-21] MEDS: BALSAM PERU/CASTOR OIL 60 GM TUBE TOP SCH ×2 (09:33→20:57)
[2018-04-21] MEDS: ALBUTEROL 0.083% (NEB) 2.5 MG/3 ML AMP HHN PRN (11:12)
[2018-04-21] MEDS: KETOROLAC 15 MG INJ IV PRN (13:56)
--- NOTE | 2018-04-21 14:54 | PN ---
Date/Time of Note Date/Time of Note DATE: 04/21/18 TIME: 14:47 Objective Vitals Vital Signs Date Temp Pulse Resp B/P (MAP) Pulse Ox O2 O2 Flow FiO2 Time Delivery Rate 04/21/18 93 55 14:11 04/21/18 85 28 14:01 04/21/18 97.5 133/60 11:20 (84) 04/21/18 Vapotherm 09:30 04/17/18 25.0 08:40 Intake and Output 04/20/18 04/20/18 04/21/18 1414:59 22:59 06:59 IntakeIntake Total 200 ml 760 ml 280 ml BalanceBalance 200 ml 760 ml 280 ml Results Result Diagram: 04/21/1893404/21/18934 Medications Medications Current Medications Cholecalciferol (Vitamin D) 1,000 unit DAILY PO ; Start 04/17/18 at 09:00 Magnesium Hydroxide (Milk Of Mag) 30 ml DAILY PRN PO CONSTIPATION; Start 04/16/18 at 14:00 Meclizine HCl (Antivert) 25 mg Q8H PRN PO DIZZINESS; Start 04/16/18 at 14:00 Sertraline HCl (Zoloft) 50 mg DAILY PO ; Start 04/17/18 at 09:00 Tramadol HCl (Ultram) 50 mg Q6H PRN PO PAIN Last administered on 04/16/18at 21:30; Admin Dose 50 MG; Start 04/16/18 at 14:00 IV Flush (NS 3 ml) 3 ml PER PROTOCOL IV ; Start 04/16/18 at 14:30 Ondansetron HCl (Zofran Inj) 4 mg Q6H PRN IV NAUSEA AND/OR VOMITING Last administered on 04/20/18at 05:38; Admin Dose 4 MG; Start 04/16/18 at 14:30 Cefepime HCl 50 ml @ 100 mls/hr Q24H IVPB Last administered on 04/20/18at 21:18; Admin Dose 100 MLS/HR; Start 04/16/18 at 21:00 Miscellaneous Information 1 ea NOTE XX ; Start 04/16/18 at 16:30 Glucose (Glutose) 15 gm Q15M PRN PO DECREASED GLUCOSE; Start 04/16/18 at 16:30 Glucose (Glutose) 22.5 gm Q15M PRN PO DECREASED GLUCOSE; Start 04/16/18 at 16:30 Dextrose (D50w Syringe) 25 ml Q15M PRN IV DECREASED GLUCOSE; Start 04/16/18 at 16:30 Dextrose (D50w Syringe) 50 ml Q15M PRN IV DECREASED GLUCOSE; Start 04/16/18 at 16:30 Glucagon (Glucagen) 1 mg Q15M PRN IM DECREASED GLUCOSE; Start 04/16/18 at 16:30 Glucose (Glutose) 15 gm Q15M PRN BUCCAL DECREASED GLUCOSE; Start 04/16/18 at 16:30 Amiodarone HCl 900 mg/Dextrose 500 ml @ 0 mls/hr Q0M IV Last administered on 04/20/18at 13:46; Admin Dose 0.5 MLS/HR; Start 04/16/18 at 17:30 Acetaminophen (Tylenol Liquid) 650 mg Q6H PRN PO PAIN LEVEL 1-3 OR FEVER Last administered on 04/19/18at 11:09; Admin Dose 650 MG; Start 04/16/18 at 20:00 Aspirin (Aspirin) 325 mg DAILY PO ; Start 04/17/18 at 09:00 Multivitamins (Multivitamin) 30 ml DAILY PO ; Start 04/17/18 at 09:00 Acetylcysteine (Mucomyst) 3 ml Q6H RESP THERAPY NEB Last administered on at 13:53; Admin Dose 3 ML; Start 04/17/18 at 02:00 Levothyroxine Sodium (Synthroid Iv) 62.5 mcg DAILY@06 IV Last administered on 04/21/18at 05:01; Admin Dose 62.5 MCG; Start 04/17/18 at 06:00 Pantoprazole (Protonix Iv) 40 mg DAILY@06 IV Last administered on 04/21/18at 05:00; Admin Dose 40 MG; Start 04/17/18 at 06:00 Acetaminophen (Tylenol Supp) 650 mg Q4H PRN [place] MILD PAIN(1-3) OR TEMP>38C; Sta rt 04/17/18 at 11:30 Albuterol/ Ipratropium (Duoneb) 3 ml Q6H RESP THERAPY NEB Last administered on 04/21/18at 13:53; Admin Dose 3 ML; Start 04/18/18 at 11:00 Eye Lubricant (Artificial Tears Oph) 2 drop QID BOTH EYES Last administered on 04/21/18at 12:17; Admin Dose 2 DROP; Start 04/18/18 at 12:00 Albuterol (Proventil 0.083% (Neb)) 2.5 mg Q2H RESP THERAPY PRN HHN SHORTNESS OF BREATH Last administered on 04/21/18at 11:12; Admin Dose 2.5 MG; Start 04/18/18 at 11:00 Ketorolac Tromethamine (Toradol) 15 mg Q6H PRN IV PAIN Last administered on 04/21/18at 13:56; Admin Dose 15 MG; Start 04/18/18 at 17:00; Stop 04/21/18 at 16:59 Lorazepam (Ativan) 0.5 mg Q8H PRN IV anxiety; Start 04/20/18 at 15:30 Trazodone HCl (Desyrel) 50 mg HS PRN PO insomnia; Start 04/20/18 at 16:00 Haloperidol (Haldol) 2 mg Q6 PRN IM agitation; Start 04/20/18 at 19:00 Insulin Aspart (Novolog Insulin Pen) NOVOLOG *MILD* ALGORITHM Q6 SC ; Start 04/21/18 at 00:00 Insulin Glargine (Lantus) 10 units DAILY@2000 SC Last administered on 04/20/18at 21:32; Admin Dose 10 UNITS; Start 04/20/18 at 20:00 Methylprednisolone Sodium Succinate (Solu-Medrol) 40 mg Q8 IV ; Start 04/21/18 at 14:00 Sodium Chloride 1,000 ml @ 80 mls/hr [id number] IV ; Start 04/21/18 at 15:00 VTE Prophylaxis Risk score (from Nsg)>0 risk: 8 SCD applied (from Nsg): Yes Lines/Catheters IV Catheter Type: Matos in Place: No Assessment/Plan Hospital Course Subjective Patient doing worse respiratory velásquez than yesterday, high fio2 demand Objective Physical exam General: Patient is laying in bed and answers questions slowly at times Mentation: Patient is alert but not fully oriented Head: Normocephalic atraumatic Eyes: EOMI, pupils reactive to light Neck: Supple, nontender, midline Respiratory: Coarse and wheezing to auscultation bilaterally Cardiovascular: regular rate, no obvious murmurs Gastrointestinal: non-tender to palpation, bowel sounds heard. Neurological: Moves all extremities spontaneously, but minimally at this time due to fatigue or weakness Skin: No new skin lesions Assessment/Plan 1. 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 Veronica a long discussion with family and states she has probably been aspirating for years. They are requesting to feed their mother pureed diet and aware of aspiration risks. They do not want NG or PEG placed at this time. Discussed safety of feeding patient on their own against speech recommendations, but they do not want to starve the patient. -I also explained to them the risks of taking full responsibility of letting the patient eat which included a very very highly likelihood of patient developing pneumonia, the patient's son and daughters are medical power of commercial litigation attorney and decided that since patient wants to eat they will feed her and accept all responsibility even if it leads to her and debility permanently. They understand that this is against my medical advice at this time. - Patient still remains on high flow and tapering down as tolerated - Pulmonology consultation appreciated and recommending wean as tolerated. 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 Afib with RVR- cinthia - Cardiology consultation appreciated and will continue on IV amiodarone until able to tolerate PO intake - no anticoagulation started given risk outweigh benefits given patients recent history of fall and deteriorating health since fall 3. hypothyroidism - continue levothyroxine 4. DM - A1c 7.7 - Will continue on ISS and accuchecks - switched to lantus/ISS 5. HTN 6. Rheumatoid arthritis - continue on pain control as tolerated 7. Sacral decubitus ulcer - wound care 8. Disposition -Another long discussion with family, patient's family aware of the risks of and debility due to feeding patient's and aspiration pneumonia would like to make patient as comfortable as possible as patient is always asking for food. They would like the continued feeding of patient even when risks such as pneumonia due to aspiration is highly likely. -Patient's overall status has deteriorated significantly, patient's family would like to consider inpatient hospice at this time, inpatient hospice has been consulted, patient's family to meet with hospice and make a decision today. MANUELITO AC Apr 21, 2018 14:54
[2018-04-21] MEDS ORDERED: SOD CHLORIDE 0.9% 1,000 ML IV SCH (15:00)
--- NOTE | 2018-04-21 16:35 | CONS ---
Date/Time of Note Date/Time of Note DATE: 04/21/18 TIME: 16:34 Assessment/Plan Assessment/Plan Hospital Course New onset atrial fibrillation with RVR: No known history. Likely due to underlying respiratory failure. Converted back to sinus after amiodarone drip Respiratory failure:CT shows possible bronchiolitis as well as right hilar mass compressing right airway. Does not appear to have CHF at this time PNA Right hilar mass DM HTN Hypothyroidism -d/c amiodarone to see how she does off of it Result Diagram: 04/21/18 0935 04/21/18 0935 Results 24hrs Laboratory Tests Test 04/20/18 17:02 04/20/18 21:24 04/20/18 23:23 04/21/18 05:09 Bedside Glucose 101 132 109 129 Test 04/21/18 09:35 04/21/18 12:14 White Blood Count 12.2 H Red Blood Count 2.91 L Hemoglobin 8.7 L Hematocrit 29.9 L Mean Corpuscular 102.7 H Volume Mean Corpuscular 29.9 Hemoglobin Mean Corpuscular 29.1 L Hemoglobin Concent Red Cell 14.8 H Distribution Width Platelet Count 359 Mean Platelet Volume 9.2 Immature 1.600 H Granulocytes % Neutrophils % 84.2 H Lymphocytes % 5.4 L Monocytes % 5.8 Eosinophils % 2.8 Basophils % 0.2 Nucleated Red Blood 0.0 Cells % Immature 0.190 H Granulocytes # Neutrophils # 10.3 H Lymphocytes # 0.7 L Monocytes # 0.7 Eosinophils # 0.3 Basophils # 0.0 Nucleated Red Blood 0.0 Cells # Sodium Level 143 Potassium Level 4.4 Chloride Level 99 Carbon Dioxide Level 37 H Anion Gap 7 Blood Urea Nitrogen 26 H Creatinine 0.53 Est Glomerular Filtrat Rate mL/min Glucose Level 135 Calcium Level 8.7 Phosphorus Level 3.6 Magnesium Level 2.3 B-Type Natriuretic 1570 H Peptide Bedside Glucose 145 Consultation Date/Type/Reason Admit Date/Time Apr 16, 2018 at 13:54 Initial Consult Date 04/17/18 Type of Consult Cardiology Requesting Provider: CHASE LIM MD 24 HR Interval Summary Free Text/Dictation No events. Less awake per family but still responsive. Remains in sinus. Family considering hospice Exam/Review of Systems Vital Signs Vitals Vital Signs Date Temp Pulse Resp B/P (MAP) Pulse Ox O2 O2 Flow FiO2 Time Delivery Rate 04/21/18 100.0 88 30 122/61 92 15:11 (81) 04/21/18 55 14:11 04/21/18 Vapotherm 09:30 04/17/18 25.0 08:40 Intake and Output 04/20/18 04/20/18 04/21/18 1414:59 22:59 06:59 IntakeIntake Total 200 ml 760 ml 280 ml BalanceBalance 200 ml 760 ml 280 ml Exam Constitutional: alert; No oriented Head: normocephalic, atraumatic Neck: supple; No jvd Respiratory: labored breathing; No clear to auscultation, No crackles/rales Cardiovascular: regular rate and rhythm, edema (1+), systolic murmur Gastrointestinal: soft, non-tender Neurological: nl mental status; No nl speech Medications Medications Current Medications Cholecalciferol (Vitamin D) 1,000 unit DAILY PO ; Start 04/17/18 at 09:00 Magnesium Hydroxide (Milk Of Mag) 30 ml DAILY PRN PO CONSTIPATION; Start 04/16/18 at 14:00 Meclizine HCl (Antivert) 25 mg Q8H PRN PO DIZZINESS; Start 04/16/18 at 14:00 Sertraline HCl (Zoloft) 50 mg DAILY PO ; Start 04/17/18 at 09:00 Tramadol HCl (Ultram) 50 mg Q6H PRN PO PAIN Last administered on 04/16/18at 21:30; Admin Dose 50 MG; Start 04/16/18 at 14:00 IV Flush (NS 3 ml) 3 ml PER PROTOCOL IV ; Start 04/16/18 at 14:30 Ondansetron HCl (Zofran Inj) 4 mg Q6H PRN IV NAUSEA AND/OR VOMITING Last administered on 04/20/18at 05:38; Admin Dose 4 MG; Start 04/16/18 at 14:30 Cefepime HCl 50 ml @ 100 mls/hr Q24H IVPB Last administered on 04/20/18at 21:18; Admin Dose 100 MLS/HR; Start 04/16/18 at 21:00 Miscellaneous Information 1 ea NOTE XX ; Start 04/16/18 at 16:30 Glucose (Glutose) 15 gm Q15M PRN PO DECREASED GLUCOSE; Start 04/16/18 at 16:30 Glucose (Glutose) 22.5 gm Q15M PRN PO DECREASED GLUCOSE; Start 04/16/18 at 16:30 Dextrose (D50w Syringe) 25 ml Q15M PRN IV DECREASED GLUCOSE; Start 04/16/18 at 16:30 Dextrose (D50w Syringe) 50 ml Q15M PRN IV DECREASED GLUCOSE; Start 04/16/18 at 16:30 Glucagon (Glucagen) 1 mg Q15M PRN IM DECREASED GLUCOSE; Start 04/16/18 at 16:30 Glucose (Glutose) 15 gm Q15M PRN BUCCAL DECREASED GLUCOSE; Start 04/16/18 at 16:30 Acetaminophen (Tylenol Liquid) 650 mg Q6H PRN PO PAIN LEVEL 1-3 OR FEVER Last administered on 04/19/18at 11:09; Admin Dose 650 MG; Start 04/16/18 at 20:00 Aspirin (Aspirin) 325 mg DAILY PO ; Start 04/17/18 at 09:00 Multivitamins (Multivitamin) 30 ml DAILY PO ; Start 04/17/18 at 09:00 Acetylcysteine (Mucomyst) 3 ml Q6H RESP THERAPY NEB Last administered on 04/21/18at 13:53; Admin Dose 3 ML; Start 04/17/18 at 02:00 Levothyroxine Sodium (Synthroid Iv) 62.5 mcg DAILY@06 IV Last administered on 04/21/18at 05:01; Admin Dose 62.5 MCG; Start 04/17/18 at 06:00 Pantoprazole (Protonix Iv) 40 mg DAILY@06 IV Last administered on 04/21/18at 05:00; Admin Dose 40 MG; Start 04/17/18 at 06:00 Acetaminophen (Tylenol Supp) 650 mg Q4H PRN [place] MILD PAIN(1-3) OR TEMP>38C; Start 04/17/18 at 11:30 Albuterol/ Ipratropium (Duoneb) 3 ml Q6H RESP THERAPY NEB Last administered on 04/21/18at 13:53; Admin Dose 3 ML; Start 04/18/18 at 11:00 Eye Lubricant (Artificial Tears Oph) 2 drop QID BOTH EYES Last administered on 04/21/18at 12:17; Admin Dose 2 DROP; Start 04/18/18 at 12:00 Albuterol (Proventil 0.083% (Neb)) 2.5 mg Q2H RESP THERAPY PRN HHN SHORTNESS OF BREATH Last administered on 04/21/18at 11:12; Admin Dose 2.5 MG; Start 04/18/18 at 11:00 Ketorolac Tromethamine (Toradol) 15 mg Q6H PRN IV PAIN Last administered on 04/21/18at 13:56; Admin Dose 15 MG; Start 04/18/18 at 17:00; Stop 04/21/18 at 16:59 Lorazepam (Ativan) 0.5 mg Q8H PRN IV anxiety; Start 04/20/18 at 15:30 Trazodone HCl (Desyrel) 50 mg HS PRN PO insomnia; Start 04/20/18 at 16:00 Haloperidol (Haldol) 2 mg Q6 PRN IM agitation; Start 04/20/18 at 19:00 Insulin Aspart (Novolog Insulin Pen) NOVOLOG *MILD* ALGORITHM Q6 SC ; Start 04/21/18 at 00:00 Insulin Glargine (Lantus) 10 units DAILY@2000 SC Last administered on 04/20/18at 21:32; Admin Dose 10 UNITS; Start 04/20/18 at 20:00; Status Hold Methylprednisolone Sodium Succinate (Solu-Medrol) 40 mg Q8 IV Last administered on 04/21/18at 14:59; Admin Dose 40 MG; Start 04/21/18 at 14:00 Sodium Chloride 1,000 ml @ 80 mls/hr [id number] IV Last administered on 04/21/18at 14:59; Admin Dose 80 MLS/HR; Start 04/21/18 at 15:00 BRIAN JIMENES Apr 21, 2018 16:35
[2018-04-21] MEDS: LORAZEPAM 2 MG INJ IV PRN ×2 (16:38→21:47)
[2018-04-21] MEDS: ACETAMINOPHEN 1000MG/100ML IV 100 ML IVPB SCH (20:57)
[2018-04-21] MEDS: CEFEPIME 1GM/50 ML (PMX) 50 ML IVPB SCH (20:57)
[2018-04-22] VITALS (10 sets, daily range): BP systolic 125–153; BP diastolic 60–74; PULSE 75–110; RESP 22–29
[2018-04-22] MEDS: ACETAMINOPHEN 1000MG/100ML IV 100 ML IVPB SCH ×2 (01:02→06:35)
[2018-04-22] MEDS: ALBUTEROL/IPRATROPIUM (NEB) 3 ML AMP NEB SCH ×4 (01:46→13:43)
[2018-04-22] MEDS: ACETYLCYSTEINE 20% 4 ML VIAL NEB SCH ×4 (01:46→13:42)
[2018-04-22] MEDS: LEVOTHYROXINE 100 MCG VIAL IV SCH (05:22)
[2018-04-22] MEDS: METHYLPREDNISOLONE 40 MG INJ IV SCH ×2 (05:22→20:48)
[2018-04-22] MEDS ORDERED: LANSOPRAZOLE 30 MG CAP PO SCH (06:00)
[2018-04-22] MEDS ORDERED: DIPHENHYDRAMINE 50 MG INJ IV PRN (06:30)
[2018-04-22] MEDS: INSULIN ASPART [NOVOLOG] 3 ML PEN SC SCH ×3 (06:37→12:00)
[2018-04-22] MEDS: LORAZEPAM 2 MG INJ IV PRN ×3 (06:43→20:14)
[2018-04-22] MEDS: morphine SULFATE/PF (2 MG/2 ML) SYG IV PRN ×3 (08:00→20:50)
[2018-04-22] MEDS: BALSAM PERU/CASTOR OIL 60 GM TUBE TOP SCH (09:00)
[2018-04-22] MEDS: SERTRALINE 50 MG TAB PO SCH (09:00)
[2018-04-22] MEDS: ASPIRIN 325 MG TAB PO SCH (09:00)
[2018-04-22] MEDS: MULTIVITAMINS 30 ML CUP PO SCH (09:00)
[2018-04-22] MEDS: CHOLECALCIFEROL 1,000 UNIT TAB PO SCH (09:00)
--- NOTE | 2018-04-22 09:54 | CONS ---
Date/Time of Note Date/Time of Note DATE: 04/22/18 TIME: 09:53 Assessment/Plan Assessment/Plan Hospital Course New onset atrial fibrillation with RVR: No known history. Likely due to underlying respiratory failure. Converted back to sinus after amiodarone drip Respiratory failure:CT shows possible bronchiolitis as well as right hilar mass compressing right airway. Does not appear to have CHF at this time PNA Right hilar mass DM HTN Hypothyroidism -monitor for afib off amiodarone Result Diagram: 04/21/18 0935 04/21/18 0935 Results 24hrs Laboratory Tests Test 04/21/18 12:14 04/21/18 17:26 04/22/18 00:18 04/22/18 06:33 Bedside Glucose 145 190 146 198 Consultation Date/Type/Reason Admit Date/Time Apr 16, 2018 at 13:54 Initial Consult Date 04/17/18 Type of Consult Cardiology Requesting Provider: CHASE LIM MD 24 HR Interval Summary Free Text/Dictation No events. Remains in sinus. Otherwise condition unchanged. Family at bedside Exam/Review of Systems Vital Signs Vitals Vital Signs Date Temp Pulse Resp B/P (MAP) Pulse Ox O2 O2 Flow FiO2 Time Delivery Rate 04/22/18 99.7 07:20 04/22/18 89 25 139/63 94 07:08 (88) 04/22/18 55 06:21 04/21/18 Vapotherm 09:30 Intake and Output 04/21/18 04/21/18 04/22/18 1515:00 23:00 07:00 IntakeIntake Total 320 ml 150 ml 825 ml BalanceBalance 320 ml 150 ml 825 ml Exam Constitutional: alert Neck: No jvd Respiratory: No clear to auscultation Cardiovascular: regular rate and rhythm, edema (1+), systolic murmur (2/6 ONIEL) Gastrointestinal: soft, non-tender; No distended Neurological: nl mental status, nl speech Medications Medications Current Medications Cholecalciferol (Vitamin D) 1,000 unit DAILY PO ; Start 04/17/18 at 09:00 Magnesium Hydroxide (Milk Of Mag) 30 ml DAILY PRN PO CONSTIPATION; Start 04/16/18 at 14:00 Meclizine HCl (Antivert) 25 mg Q8H PRN PO DIZZINESS; Start 04/16/18 at 14:00 Sertraline HCl (Zoloft) 50 mg DAILY PO ; Start 04/17/18 at 09:00 Tramadol HCl (Ultram) 50 mg Q6H PRN PO PAIN Last administered on 04/16/18at 21:30; Admin Dose 50 MG; Start 04/16/18 at 14:00 IV Flush (NS 3 ml) 3 ml PER PROTOCOL IV ; Start 04/16/18 at 14:30 Ondansetron HCl (Zofran Inj) 4 mg Q6H PRN IV NAUSEA AND/OR VOMITING Last administered on 04/20/18at 05:38; Admin Dose 4 MG; Start 04/16/18 at 14:30 Cefepime HCl 50 ml @ 100 mls/hr Q24H IVPB Last administered on 04/21/18at 20:57; Admin Dose 100 MLS/HR; Start 04/16/18 at 21:00 Miscellaneous Information 1 ea NOTE XX ; Start 04/16/18 at 16:30 Glucose (Glutose) 15 gm Q15M PRN PO DECREASED GLUCOSE; Start 04/16/18 at 16:30 Glucose (Glutose) 22.5 gm Q15M PRN PO DECREASED GLUCOSE; Start 04/16/18 at 16:30 Dextrose (D50w Syringe) 25 ml Q15M PRN IV DECREASED GLUCOSE; Start 04/16/18 at 16:30 Dextrose (D50w Syringe) 50 ml Q15M PRN IV DECREASED GLUCOSE; Start 04/16/18 at 16:30 Glucagon (Glucagen) 1 mg Q15M PRN IM DECREASED GLUCOSE; Start 04/16/18 at 16:30 Glucose (Glutose) 15 gm Q15M PRN BUCCAL DECREASED GLUCOSE; Start 04/16/18 at 16:30 Acetaminophen (Tylenol Liquid) 650 mg Q6H PRN PO PAIN LEVEL 1-3 OR FEVER Last administered on 04/19/18at 11:09; Admin Dose 650 MG; Start 04/16/18 at 20:00 Aspirin (Aspirin) 325 mg DAILY PO ; Start 04/17/18 at 09:00 Multivitamins (Multivitamin) 30 ml DAILY PO ; Start 04/17/18 at 09:00 Acetylcysteine (Mucomyst) 3 ml Q6H RESP THERAPY NEB Last administered on 04/22/18at 08:39; Admin Dose 3 ML; Start 04/17/18 at 02:00 Levothyroxine Sodium (Synthroid Iv) 62.5 mcg DAILY@06 IV Last administered on 04/22/18 05:22; Admin Dose 62.5 MCG; Start 04/17/18 at 06:00 Acetaminophen (Tylenol Supp) 650 mg Q4H PRN [place] MILD PAIN(1-3) OR TEMP>38C; Start 04/17/18 at 11:30 Albuterol/ Ipratropium (Duoneb) 3 ml Q6H RESP THERAPY NEB Last administered on 04/22/18 08:38; Admin Dose 3 ML; Start 04/18/18 at 11:00 Eye Lubricant (Artificial Tears Oph) 2 drop QID BOTH EYES Last administered on 04/21/18 20:57; Admin Dose 2 DROP; Start 04/18/18 at 12:00 Albuterol (Proventil 0.083% (Neb)) 2.5 mg Q2H RESP THERAPY PRN HHN SHORTNESS OF BREATH Last administered on 04/21/18at 11:12; Admin Dose 2.5 MG; Start 04/18/18 at 11:00 Lorazepam (Ativan) 0.5 mg Q8H PRN IV anxiety Last administered on 04/22/18 06:43; Admin Dose 0.5 MG; Start 04/20/18 at 15:30 Trazodone HCl (Desyrel) 50 mg HS PRN PO insomnia; Start 04/20/18 at 16:00 Haloperidol (Haldol) 2 mg Q6 PRN IM agitation; Start 04/20/18 at 19:00 Insulin Aspart (Novolog Insulin Pen) NOVOLOG *MILD* ALGORITHM Q6 SC Last administered on 04/22/18at 06:37; Admin Dose 1 UNIT; Start 04/21/18 at 00:00 Insulin Glargine (Lantus) 10 units DAILY@2000 SC Last administered on 04/20/18at 21:32; Admin Dose 10 UNITS; Start 04/20/18 at 20:00; Status Hold Methylprednisolone Sodium Succinate (Solu-Medrol) 40 mg Q8 IV Last administered on 04/22/18 05:22; Admin Dose 40 MG; Start 04/21/18 at 14:00 Sodium Chloride 1,000 ml @ 50 mls/hr Q20H IV Last administered on 1/15/19at 14:59; Admin Dose 80 MLS/HR; Start 04/21/18 at 15:00 Lansoprazole (Prevacid) 30 mg DAILY@06 PO ; Start 04/22/18 at 06:00 Acetaminophen 100 ml @ 400 mls/hr Q6H IVPB Last administered on 04/22/18at 06:35; Admin Dose 400 MLS/HR; Start 04/21/18 at 19:00; Stop 04/22/18 at 18:59 Diphenhydramine HCl (Benadryl) 25 mg Q6H PRN IV ITCHING; Start 04/22/18 at 06:30 Morphine Sulfate (morphine SULFATE (PF)) 1 mg Q4H PRN IV SEVERE PAIN LEVEL 7-10 Last administered on 04/22/18at 08:00; Admin Dose 1 MG; Start 04/22/18 at 08:00 BRIAN JIMENES Apr 22, 2018 09:54
--- NOTE | 2018-04-22 10:24 | CONS ---
Date/Time of Note Date/Time of Note DATE: 04/22/18 TIME: 10:21 Assessment/Plan Assessment/Plan Assessment/Plan Assessment and recommendations; 1. 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 Still requiring significantly high FiO2. 2. Very poor overall functional status. 3. Proximal atrial fibrillation. 4. History of hypothyroidism. 5. Anemia. 6. Diabetes. Decrease Solu-Medrol 20 mg every 12 hours. Consider stopping cefepime. Patient's family is contemplating hospice. I did have a detailed discussion with the patient's daughters in the room and answered all their questions. Prognosis is very poor. Result Diagram: 04/21/18 0935 04/21/18 0935 Results 24hrs Laboratory Tests Test 04/21/18 12:14 04/21/18 17:26 04/22/18 00:18 04/22/18 06:33 Bedside Glucose 145 190 146 198 Consultation Date/Type/Reason Admit Date/Time Apr 16, 2018 at 13:54 Initial Consult Date 04/17/18 Type of Consult Pulmonary History of presenting illness; patient is an 87-year-old lady who has been transferred over from rehab because of hypoxemia. Upon evaluation chest x-ray and CT scan of chest were done which is showing extensive groundglass opacities with nodular changes. Patient has maintained her high flow nasal cannula with stable O2 saturation. The patient is a very poor historian and history was obtained from medical record as well as from patient's daughter who was present in the room. According to the patient's daughter the patient was doing fine until a few months ago when she sustained a fall resulting in hip fracture and ever since then the patient has had a progressive downhill course patient also has been on home oxygen for the last 2 months. The patient appears awake but lethargic. Was able to answer some questions. Past medical history; 1. 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 2. History of chronic atrial fibrillation. 3. Hypertension. 4. Recent hip fracture. 5. Chronic hypoxemia. 6. Diabetes. Medications; reviewed. Allergies; codeine. Social history; patient has been a lifelong non-smoker. Family history; noncontributory. Patient is with her son. Occupational history; patient has been a housewife. Review of system; difficult to obtain. General exam; elderly female, on high flow nasal cannula. Currently no distress. Requesting Provider: CHASE LIM MD 24 HR Interval Summary Free Text/Dictation Patient's condition remains tenuous at best. Patient exhibiting declining clinical status. Still on high flow nasal cannula at 55% FiO2. General exam; elderly female, awake but lethargic. Currently in no distress. Exam/Review of Systems Vital Signs Vitals Vital Signs Date Temp Pulse Resp B/P (MAP) Pulse Ox O2 O2 Flow FiO2 Time Delivery Rate 04/22/18 99.7 07:20 04/22/18 89 25 139/63 94 07:08 (88) 04/22/18 55 06:21 04/21/18 Vapotherm 09:30 Intake and Output 04/21/18 04/21/18 04/22/18 1515:00 23:00 07:00 IntakeIntake Total 320 ml 150 ml 825 ml BalanceBalance 320 ml 150 ml 825 ml Exam H EENT exam; supple neck, no JVD. No lymphadenopathy. Midline trachea. No thyromegaly. Patient is edentulous. Chest exam; upper lobes are fairly clear with bibasilar crackles. S1-S2 audible, no murmurs. Regular rhythm. Abdomen exam; soft, no organomegaly. Bowel sounds audible. Scaphoid. Extremity exam; no peripheral edema. ALTERNATIVE DISPUTE RESOLUTION MEDIATOR exam; she is awake but lethargic. Medications Medications Current Medications Cholecalciferol (Vitamin D) 1,000 unit DAILY PO ; Start 04/17/18 at 09:00 Magnesium Hydroxide (Milk Of Mag) 30 ml DAILY PRN PO CONSTIPATION; Start 04/16/18 at 14:00 Meclizine HCl (Antivert) 25 mg Q8H PRN PO DIZZINESS; Start 04/16/18 at 14:00 Sertraline HCl (Zoloft) 50 mg DAILY PO ; Start 04/17/18 at 09:00 Tramadol HCl (Ultram) 50 mg Q6H PRN PO PAIN Last administered on 04/16/18at 21:30; Admin Dose 50 MG; Start 04/16/18 at 14:00 IV Flush (NS 3 ml) 3 ml PER PROTOCOL IV ; Start 04/16/18 at 14:30 Ondansetron HCl (Zofran Inj) 4 mg Q6H PRN IV NAUSEA AND/OR VOMITING Last administered on 04/20/18at 05:38; Admin Dose 4 MG; Start 04/16/18 at 14:30 Cefepime HCl 50 ml @ 100 mls/hr Q24H IVPB Last administered on 04/21/18at 20:57; Admin Dose 100 MLS/HR; Start 04/16/18 at 21:00 Miscellaneous Information 1 ea NOTE XX ; Start 04/16/18 at 16:30 Glucose (Glutose) 15 gm Q15M PRN PO DECREASED GLUCOSE; Start 04/16/18 at 16:30 Glucose (Glutose) 22.5 gm Q15M PRN PO DECREASED GLUCOSE; Start 04/16/18 at 16:30 Dextrose (D50w Syringe) 25 ml Q15M PRN IV DECREASED GLUCOSE; Start 04/16/18 at 16:30 Dextrose (D50w Syringe) 50 ml Q15M PRN IV DECREASED GLUCOSE; Start 04/16/18 at 16:30 Glucagon (Glucagen) 1 mg Q15M PRN IM DECREASED GLUCOSE; Start 04/16/18 at 16:30 Glucose (Glutose) 15 gm Q15M PRN BUCCAL DECREASED GLUCOSE; Start 04/16/18 at 16:30 Acetaminophen (Tylenol Liquid) 650 mg Q6H PRN PO PAIN LEVEL 1-3 OR FEVER Last administered on 04/19/18at 11:09; Admin Dose 650 MG; Start 04/16/18 at 20:00 Aspirin (Aspirin) 325 mg DAILY PO ; Start 04/17/18 at 09:00 Multivitamins (Multivitamin) 30 ml DAILY PO ; Start 04/17/18 at 09:00 Acetylcysteine (Mucomyst) 3 ml Q6H RESP THERAPY NEB Last administered on 04/22/18at 08:39; Admin Dose 3 ML; Start 04/17/18 at 02:00 Levothyroxine Sodium (Synthroid Iv) 62.5 mcg DAILY@06 IV Last administered on 04/22/18at 05:22; Admin Dose 62.5 MCG; Start 04/17/18 at 06:00 Acetaminophen (Tylenol Supp) 650 mg Q4H PRN [place] MILD PAIN(1-3) OR TEMP>38C; Start 04/17/18 at 11:30 Albuterol/ Ipratropium (Duoneb) 3 ml Q6H RESP THERAPY NEB Last administered on 04/22/18 08:38; Admin Dose 3 ML; Start 04/18/18 at 11:00 Eye Lubricant (Artificial Tears Oph) 2 drop QID BOTH EYES Last administered on 04/21/18 20:57; Admin Dose 2 DROP; Start 04/18/18 at 12:00 Albuterol (Proventil 0.083% (Neb)) 2.5 mg Q2H RESP THERAPY PRN HHN SHORTNESS OF BREATH Last administered on 04/21/18at 11:12; Admin Dose 2.5 MG; Start 04/18/18 at 11:00 Lorazepam (Ativan) 0.5 mg Q8H PRN IV anxiety Last administered on 04/22/18 06:43; Admin Dose 0.5 MG; Start 04/20/18 at 15:30 Trazodone HCl (Desyrel) 50 mg HS PRN PO insomnia; Start 04/20/18 at 16:00 Haloperidol (Haldol) 2 mg Q6 PRN IM agitation; Start 04/20/18 at 19:00 Insulin Aspart (Novolog Insulin Pen) NOVOLOG *MILD* ALGORITHM Q6 SC Last administered on 04/22/18at 06:37; Admin Dose 1 UNIT; Start 04/21/18 at 00:00 Insulin Glargine (Lantus) 10 units DAILY@2000 SC Last administered on 04/20/18at 21:32; Admin Dose 10 UNITS; Start 04/20/18 at 20:00; Status Hold Methylprednisolone Sodium Succinate (Solu-Medrol) 40 mg Q8 IV Last administered on 04/22/18 05:22; Admin Dose 40 MG; Start 04/21/18 at 14:00 Sodium Chloride 1,000 ml @ 50 mls/hr Q20H IV Last administered on 04/21/18at 14:59; Admin Dose 80 MLS/HR; Start 04/21/18 at 15:00 Lansoprazole (Prevacid) 30 mg DAILY@06 PO ; Start 04/22/18 at 06:00 Acetaminophen 100 ml @ 400 mls/hr Q6H IVPB Last administered on 04/22/18at 06:35; Admin Dose 400 MLS/HR; Start 04/21/18 at 19:00; Stop 04/22/18 at 18:59 Diphenhydramine HCl (Benadryl) 25 mg Q6H PRN IV ITCHING; Start 04/22/18 at 06:30 Morphine Sulfate (morphine SULFATE (PF)) 1 mg Q4H PRN IV SEVERE PAIN LEVEL 7-10 Last administered on 04/22/18at 08:00; Admin Dose 1 MG; Start 04/22/18 at 08:00 JIMMY DONOHUE Apr 22, 2018 10:24
--- NOTE | 2018-04-22 11:28 | DS ---
Date/Time of Note Date/Time of Note DATE: 04/22/18 TIME: 11:27 Discharge Summary Admission/Discharge Info Admit Date/Time Apr 16, 2018 at 13:54 Discharge Date/Time Patient Condition: Stable Hospital Course On patient is an elderly female with a past medical history of severe rheumatoid arthritis that has affected her lung to rheumatoid lung who presented to [facility] for acute hypoxic respiratory failure. 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 Patient also went through multiple issues during this admission including issues with sugar control, atrial fibrillation with RVR as well as an acute kidney injury. 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 Patient's family decided on hospice as patient was continued to have more shortness of breath and pain. Patient will be discharged to hospice. Discharge diagnosis Acute hypoxic respiratory failure secondary to rheumatoid lung Rheumatoid lung Acute kidney injury, resolved Atrial fibrillation with RVR, stable Hypothyroidism Diabetes mellitus Hypertension Rheumatoid arthritis Sacral decubitus ulcer Home Meds Reported Medications Quetiapine Fumarate* (Seroquel*) 25 Mg Tablet, 12.5 MG PO QPM, #60 TAB 04/16/18 Sertraline Hcl* (Zoloft*) 50 Mg Tablet, 50 MG PO DAILY, #30 TAB 04/16/18 Clonazepam* (Clonazepam*) 1 Mg Tablet, 1 MG PO BID PRN for ANXIETY, TAB 04/16/18 Magnesium Hydroxide* (Milk Of Magnesia*) 400 Mg/5 Ml Oral.susp, 30 ML PO DAILY PRN for CONSTIPATION, ML 04/16/18 Insulin Lispro (Humalog) 100 Unit/1 Ml Cartridge, 2-12 UNIT SQ AC B, EA 04/16/18 Metformin* (Glucophage*) 500 Mg Tab, 500 MG PO BID, #90 TAB 04/16/18 Meclizine Hcl* (Meclizine Hcl*) 25 Mg Tablet, 25 MG PO Q8H PRN for DIZZINESS, TA B 04/16/18 Tramadol Hcl* (Ultram*) 50 Mg Tablet, 50 MG PO Q6H PRN for PAIN, TAB 04/16/18 Acetaminophen* (Acetaminophen*) 650 Mg Tablet, 650 MG PO Q4 PRN for PAIN AND OR ELEVATED TEMP, #30 TAB 04/16/18 Omeprazole* (Omeprazole*) 20 Mg Capsule.dr, 20 MG PO AC BREAKFAST, #30 CAP 04/16/18 Multivitamins* (Theragran*) 1 Tab Tab, 1 TAB PO DAILY, TAB 04/16/18 Levothyroxine Sodium* (Levothyroxine Sodium*) 125 Mcg Tablet, 125 MCG PO BEFORE BREAKFAST, #30 TAB 04/16/18 Aspirin* (Aspirin* EC) 325 Mg Tab, 325 MG PO DAILY, TAB 04/16/18 Diltiazem Hcl* (Diltiazem XT) 120 Mg Capsule.sa, 120 MG PO BID, #30 CAP 04/16/18 Cholecalciferol* (Vitamin D3*) 1,000 Unit Tablet, 1000 UNIT PO DAILY, TAB 04/16/18 Ipratropium-Albuterol (Ipratropium-Albuterol) 0.5-3 Mg/3 Ml Ampul.neb, 3 ML INHALATION Q6 PRN for WHEEZING AND SOB, #30 VIAL 04/16/18 Discontinued Reported Medications Aspirin* (Aspirin*) 325 Mg Tablet, 325 MG PO DAILY, TAB 04/16/18 Primary Care Provider Care Physician No Primary Time spent on discharge: > 30 minutes Pending Labs Laboratory Tests Test 04/21/18 12:14 04/21/18 17:26 04/22/18 00:18 04/22/18 06:33 Bedside 145 190 146 198 Glucose mg/dL (70-220) mg/dL (70-220) mg/dL (70-220) mg/dL (70-220) MANUELITO AC Apr 22, 2018 11:28
[2018-04-22] MEDS: SOD CHLORIDE 0.9% 1,000 ML IV SCH (12:06)
[2018-04-22] MEDS ORDERED: ONDANSETRON 4 MG INJ IV PRN (12:30)
[2018-04-22] MEDS ORDERED: morphine SULFATE/PF (2 MG/2 ML) SYG IV PRN (12:30)
[2018-04-22] MEDS ORDERED: DIMETHICONE STICK TOP PRN (12:30)
[2018-04-22] MEDS ORDERED: BISACODYL 10 MG SUPP PR PRN (12:30)
[2018-04-22] MEDS ORDERED: ATROPINE 1% 5 ML OPH SL PRN (12:30)
[2018-04-22] MEDS ORDERED: ARTIFICIAL TEARS 15 ML OPH BOTH EYES PRN (12:30)
[2018-04-22] MEDS: ALBUTEROL/IPRATROPIUM (NEB) 3 ML AMP HHN PRN (20:03)
[2018-04-22] MEDS ORDERED: METHYLPREDNISOLONE 40 MG INJ IV SCH (21:00)
[2018-04-22] MEDS: DIPHENHYDRAMINE 50 MG INJ IV PRN (22:32)
[2018-04-23] VITALS (13 sets, daily range): BP systolic 138–152; BP diastolic 66–78; PULSE 88–168; RESP 18–25
--- NOTE | 2018-04-23 03:11 | HP ---
DATE OF ADMISSION: 04/16/2018 The patient is being admitted under [facility] at [facility] level of care. PRIMARY HOSPICE DIAGNOSES: Acute respiratory failure due to rheumatoid lung disease. COMORBID: Severe rheumatoid arthritis, hypertension, diabetes, hypothyroidism, atrial fibrillation. CHIEF COMPLAINT AND HISTORY OF PRESENT ILLNESS: History is obtained from medical record and after di scussion with the patient's son. 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 The patient came to came to ER on 04/16/2018 with shortness of breath and was diagnosed with acute hypoxemic respiratory failu re secondary to pneumonia. The patient was transitioned to high flow oxygen in the ER and since then has remained on high flow oxygen. The patient also was noted to be in AFib with RVR. Heart rate wa s in the 170s. The patient was given IV Cardizem with improvement in heart rate. The patient also h as history of diabetes and hypothyroidism along with hypertension. The patient continues to decline. The patient also developed acute kidney injury. 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 The patient's family was referred to [facility] and family subsequently decided to choose comfort care. The patient was made DNR. The patient is currently lethargic on high flow oxygen, opens eyes on stimuli and follows simple commands. No repor guy fever or chills today. No reported vomiting. No reported bleeding from any site. No reported a ctive wheezing. The patient does have trace edema. No reported seizures. The patient has generaliz ed weakness and is essentially bedbound at this time. REVIEW OF SYSTEMS: Limited as the patient was lethargic. PAST MEDICAL HISTORY: As stated above. FAMILY HISTORY: Noncontributory for patient's condition. SOCIAL HISTORY: No smoking, no alcohol. PHYSICAL EXAMINATION: GENERAL: The patient is lethargic, but arousable. VITAL SIGNS: Today revealed temperature 98.6, pulse of 105, blood pressure 133/69, O2 saturation 96% on FiO2 of 55%, respirations 22. HEENT: Atraumatic, normocephalic. Conjunctivae and lids are normal. Nose is normal. Oropharynx ex amination could not be done. NECK: Supple. No JVD. No mass. CHEST: Bibasilar rales. CARDIOVASCULAR: S1, S2 normal. No murmur. ABDOMEN: Soft, nondistended, nontender. EXTREMITIES: Trace edema. No clubbing or cyanosis. NEUROLOGIC: The patient is lethargic and opens eyes on verbal stimuli. DIAGNOSTIC DATA: CT of the chest revealed extensive ground glass and nodular infiltrate and ill-defi lamar soft tissue density in the right hilum infectious versus neoplastic etiology. LABORATORY DATA: Blood glucose today 198. Hemoglobin A1c is 7.7. WBC 14.3, hemoglobin 10.1, platel et 349. Sodium 146, potassium 4.1, BUN 43, creatinine 0.5. IMPRESSION: 1. Acute hypoxemic respiratory failure due to end-stage rheumatoid lung. 2. Rheumatoid arthritis. 3. Hypertension. 4. Diabetes mellitus. 5. Atrial fibrillation. PLAN: The patient was admitted under hospice care and will be kept n.p.o. unless she is more awake a nd alert. The patient will be started on IV Ativan 0.5 mg q.4 hours p.r.n. for anxiety, 1 to 2 q.12 p.r.n. for shortness of breath and pain. The patient will also be started on atropine drops fo r secretions, DuoNeb for chest congestion and Haldol for agitation. I met with the patient's son and updated him regarding patient's condition and plan of care. The patient remains terminally ill and appropriate for GIP level of care. We will continue to follow and optimize comfort care. Dictated By: YU MATTSON MD AB/NTS Conf#: [id number] DID#: [id number] CC: COLIN FRANCO MD; CHASE LIM MD;*EndCC*
[2018-04-23] MEDS: ALBUTEROL/IPRATROPIUM (NEB) 3 ML AMP HHN PRN ×6 (04:22→22:50)
[2018-04-23] MEDS: DIPHENHYDRAMINE 50 MG INJ IV PRN ×3 (04:34→16:08)
[2018-04-23] MEDS: morphine SULFATE/PF (2 MG/2 ML) SYG IV PRN ×2 (04:35→12:16)
[2018-04-23] MEDS: METHYLPREDNISOLONE 40 MG INJ IV SCH ×2 (08:01→20:43)
[2018-04-23] MEDS: LORAZEPAM 2 MG INJ IV PRN ×2 (08:02→13:13)
--- NOTE | 2018-04-23 09:41 | CONS ---
Date/Time of Note Date/Time of Note DATE: 04/23/18 TIME: 09:40 Assessment/Plan Assessment/Plan Assessment/Plan Assessment and recommendations; 1. Patient with history of advanced rheumatoid arthritis and pulmonary fibrosis admitted for severe hypoxemic respiratory failure without any interval improvement despite aggressive antimicrobial as well as systemic steroid treatment. 2. Persistent severe hypoxemia. 3. History of recent hip surgery. Continue comfort care measures. Will sign off. Thanks for the referral. Stenosis is poor. Result Diagram: 04/21/18 0935 04/21/18 0935 Consultation Date/Type/Reason Admit Date/Time Apr 16, 2018 at 13:54 Initial Consult Date 04/17/18 Type of Consult Pulmonary History of presenting illness; patient is an 87-year-old lady who has been transferred over from rehab because of hypoxemia. Upon evaluation chest x-ray and CT scan of chest were done which is showing extensive groundglass opacities with nodular changes. Patient has maintained her high flow nasal cannula with stable O2 saturation. The patient is a very poor historian and history was obtained from medical record as well as from patient's daughter who was present in the room. According to the patient's daughter the patient was doing fine until a few months ago when she sustained a fall resulting in hip fracture and ever since then the patient has had a progressive downhill course patient also has been on home oxygen for the last 2 months. The patient appears awake but lethargic. Was able to answer some questions. Past medical history; 1. 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 2. History of chronic atrial fibrillation. 3. Hypertension. 4. Recent hip fracture. 5. Chronic hypoxemia. 6. Diabetes. Medications; reviewed. Allergies; codeine. Social history; patient has been a lifelong non-smoker. Family history; noncontributory. Patient is with her son. Occupational history; patient has been a housewife. Review of system; difficult to obtain. General exam; elderly female, on high flow nasal cannula. Currently no distress. Requesting Provider: CHASE LIM MD 24 HR Interval Summary Free Text/Dictation Patient's condition remains tenuous at best. Remains lethargic. Still on high flow nasal cannula at 50% FiO2. General exam; elderly female, lethargic, currently no distress. Exam/Review of Systems Vital Signs Vitals Vital Signs Date Temp Pulse Resp B/P (MAP) Pulse Ox O2 O2 Flow FiO2 Time Delivery Rate 04/23/18 93 50 09:15 04/23/18 Vapotherm 08:15 04/23/18 99.2 97 19 152/69 07:37 (96) Intake and Output 04/22/18 04/22/18 04/23/18 1515:00 23:00 07:00 IntakeIntake Total 200 ml 70 ml BalanceBalance 200 ml 70 ml Exam H EENT exam; supple neck, positive JVD. No lymphadenopathy. Midline trachea. No thyromegaly. Patient is edentulous. Chest exam; diminished breath sounds throughout. S1-S2 audible, no murmurs. Abdomen exam; soft, scaphoid. Nontender. Bowel sounds are sluggish. Extremity exam; no peripheral edema. IP COUNSEL exam; patient is lethargic exhibiting profound generalized weakness. Medications Medications Current Medications IV Flush (NS 3 ml) 3 ml PER PROTOCOL IV ; Start 04/16/18 at 14:30 Miscellaneous Information 1 ea NOTE XX ; Start 04/16/18 at 16:30 Sodium Chloride 1,000 ml @ 30 mls/hr Q24H IV Last administered on 04/22/18at 12:06; Admin Dose 30 MLS/HR; Start 04/22/18 at 12:06 Albuterol/ Ipratropium (Duoneb) 3 ml Q4H RESP THERAPY PRN HHN SHORTNESS OF BREATH Last administered on 04/23/18at 07:50; Admin Dose 3 ML; Start 04/22/18 at 12:30 Morphine Sulfate (morphine SULFATE (PF)) 1 mg Q2 PRN IV PAIN LEVEL 4-6 Last administered on 04/23/18at 04:35; Admin Dose 1 MG; Start 04/22/18 at 12:30 Lorazepam (Ativan) 0.5 mg Q4H PRN IV AGITATION/ANXIETY Last administered on 04/23/18at 08:02; Admin Dose 0.5 MG; Start 04/22/18 at 12:30 Ondansetron HCl (Zofran Inj) 4 mg Q4 PRN IV NAUSEA AND/OR VOMITING; Start 04/22/18 at 12:30 Atropine Sulfate (Atropine 1% Oph) 2 drop Q2 PRN SL PRN SECRETIONS; Start at 12:30 Diphenhydramine HCl (Benadryl) 25 mg Q6 PRN IV PRURITUS Last administered on 04/23/18at 04:34; Admin Dose 25 MG; Start 04/22/18 at 12:30 Eye Lubricant (Artificial Tears Oph) 2 drop EACH SHIFT PRN BOTH EYES DRY EYES; Start 04/22/18 at 12:30 Dimethicone (Blistex Lip [place]) 1 applic EACH SHIFT PRN TOP DRY LIPS; Start 04/22/18 at 12:30 Bisacodyl (Dulcolax Supp) 10 mg DAILY PRN [place] CONSTIPATION; Start 04/22/18 at 12:30 Morphine Sulfate (morphine SULFATE (PF)) 2 mg Q2H PRN IV SEVERE PAIN LEVEL 7-10 Last administered on 04/23/18 08:01; Admin Dose 2 MG; Start 04/22/18 at 12:30 Methylprednisolone Sodium Succinate (Solu-Medrol) 20 mg Q12 IV Last administered on 04/23/18 08:01; Admin Dose 20 MG; Start 04/22/18 at 21:00 JIMMY DONOHUE Apr 23, 2018 09:41
[2018-04-23] MEDS ORDERED: DIPHENHYDRAMINE 50 MG INJ ONE (10:05)
[2018-04-23] MEDS: SOD CHLORIDE 0.9% 1,000 ML IV SCH (11:24)
[2018-04-23] MEDS: morphine SULFATE/PF (2 MG/2 ML) SYG IV SCH ×2 (16:08→20:34)
[2018-04-23] MEDS: ACETAMINOPHEN 650 MG SUPP PR PRN (16:19)
--- NOTE | 2018-04-23 16:28 | CONS ---
Date/Time of Note Date/Time of Note DATE: 04/23/18 TIME: 16:24 Assessment/Plan Assessment/Plan Hospital Course New onset atrial fibrillation with RVR: No known history. Likely due to underlying respiratory failure. Converted back to sinus after amiodarone drip. Now back and forth Respiratory failure:CT shows possible bronchiolitis as well as right hilar mass compressing right airway. Does not appear to have CHF at this time PNA Right hilar mass DM HTN Hypothyroidism -although the pt is on hospice now, the goal is to keep her comfortable. When she is in afib, she is very uncomfortable. She cannot take PO and I believe IV amiodarone drip is very appropriate at a fixed dose to keep her hopefully in sinus as she lives the last few hours/days of her life. This is within the family's wishes and they voiced concerns that they would not want her on hospice if we cannot keep her comfortable. If she needs to go to med surg that is ok and we can hopefully continue the amiodarone fixed dose drip without titration. She will not need monitoring. -start amio at 0.5mg/min drip at a nontitrateable fixed dose Result Diagram: 04/21/18 0935 04/21/18 0935 Consultation Date/Type/Reason Admit Date/Time Apr 16, 2018 at 13:54 Initial Consult Date 04/17/18 Type of Consult Cardiology Requesting Provider: CHASE LIM MD 24 HR Interval Summary Free Text/Dictation Pt is now on hospice. However she as been in and out of afib and when she is in afib she is very uncomfortable which is against the family's wishes. Exam/Review of Systems Vital Signs Vitals Vital Signs Date Temp Pulse Resp B/P (MAP) Pulse Ox O2 O2 Flow FiO2 Time Delivery Rate 04/23/18 100.6 16:19 04/23/18 96 25 138/78 91 15:36 (98) 04/23/18 50 15:10 04/23/18 Vapotherm 08:15 Intake and Output 04/22/18 04/22/18 04/23/18 1515:00 23:00 07:00 IntakeIntake Total 200 ml 70 ml BalanceBalance 200 ml 70 ml Exam Constitutional: alert Neck: No jvd Respiratory: No clear to auscultation Cardiovascular: No regular rate and rhythm (tachycardic) Gastrointestinal: soft, non-tender; No distended Neurological: nl mental status Medications Medications Current Medications IV Flush (NS 3 ml) 3 ml PER PROTOCOL IV ; Start 04/16/18 at 14:30 Miscellaneous Information 1 ea NOTE XX ; Start 04/16/18 at 16:30 Sodium Chloride 1,000 ml @ 30 mls/hr Q24H IV Last administered on 04/23/18at 11:24; Admin Dose 30 MLS/HR; Start 04/22/18 at 12:06 Albuterol/ Ipratropium (Duoneb) 3 ml Q4H RESP THERAPY PRN HHN SHORTNESS OF BREATH Last administered on 04/23/18at 15:05; Admin Dose 3 ML; Start 04/22/18 at 12:30 Morphine Sulfate (morphine SULFATE (PF)) 1 mg Q2 PRN IV PAIN LEVEL 4-6 Last administered on 04/23/18at 12:16; Admin Dose 1 MG; Start 04/22/18 at 12:30 Lorazepam (Ativan) 0.5 mg Q4H PRN IV AGITATION/ANXIETY Last administered on 04/23/18at 13:13; Admin Dose 0.5 MG; Start 04/22/18 at 12:30 Ondansetron HCl (Zofran Inj) 4 mg Q4 PRN IV NAUSEA AND/OR VOMITING; Start 04/22 at 12:30 Atropine Sulfate (Atropine 1% Oph) 2 drop Q2 PRN SL PRN SECRETIONS; Start 04/22/18 at 12:30 Eye Lubricant (Artificial Tears Oph) 2 drop EACH SHIFT PRN BOTH EYES DRY EYES Last administered on 04/23/18at 16:09; Admin Dose 2 DROP; Start 04/22/18 at 12:30 Dimethicone (Blistex Lip [place]) 1 applic EACH SHIFT PRN TOP DRY LIPS; Start 04/22/18 at 12:30 Bisacodyl (Dulcolax Supp) 10 mg DAILY PRN [place] CONSTIPATION; Start 04/22/18 at 12:30 Morphine Sulfate (morphine SULFATE (PF)) 2 mg Q2H PRN IV SEVERE PAIN LEVEL 7-10 Last administered on 04/23/18at 08:01; Admin Dose 2 MG; Start 04/22/18 at 12:30 Methylprednisolone Sodium Succinate (Solu-Medrol) 20 mg Q12 IV Last administered on 04/23/18 08:01; Admin Dose 20 MG; Start 04/22/18 at 21:00 Diphenhydramine HCl (Benadryl) 50 mg Q6H PRN IV PRURITUS Last administered on 04/23/18 16:08; Admin Dose 50 MG; Start 04/23/18 at 10:00 Morphine Sulfate (morphine SULFATE (PF)) 1.5 mg Q4H IV Last administered on 04/23/18at 16:08; Admin Dose 1.5 MG; Start 04/23/18 at 16:30 Lorazepam (Ativan) 0.5 mg Q4H IV ; Start 04/23/18 at 16:30 Acetaminophen (Tylenol Supp) 650 mg Q4 PRN [place] FEVER Last administered on 04/23/18at 16:19; Admin Dose 650 MG; Start 04/23/18 at 16:00 BRIAN JIMENES Apr 23, 2018 16:28
[2018-04-23] MEDS ORDERED: ACETAMINOPHEN 1000MG/100ML IV 100 ML IVPB SCH (16:30)
[2018-04-23] MEDS: LORAZEPAM 2 MG INJ IV SCH ×3 (16:35→23:57)
[2018-04-23] MEDS: AMIODARONE 900 MG in DEXTROSE 5% 482 ML IV SCH (17:34)
[2018-04-23] MEDS: ARTIFICIAL TEARS 15 ML OPH BOTH EYES SCH (20:34)
--- NOTE | 2018-04-23 21:45 | RADRPT ---
Vent Rate: 92 bpm RR Interval: 0 msec CA Interval: 128 msec QRS Duration: 82 msec QT Interval: 332 msec QTC Interval: 410 msec P-R-T Reynolds: 34 - -10 - 54 degrees Normal sinus rhythm with sinus arrhythmia Septal infarct , age undetermined Abnormal ECG Electronically Signed By: Juaquin Cardoso [id number]
[2018-04-24] VITALS (12 sets, daily range): BP systolic 138–177; BP diastolic 63–102; PULSE 71–151; RESP 20–23
--- NOTE | 2018-04-24 00:08 | PN ---
DATE: 04/23/2018 SUBJECTIVE: 1. Followup acute respiratory failure. 2. Comorbid end-stage rheumatoid lung. 3. Hypertension. 4. Diabetes mellitus. 5. Atrial fibrillation. The patient developed AFib with RVR. The patient was seen by Dr. Fisher. The patient was compla ining of palpitation and shortness of breath and therefore patient has been started on amiodarone dri p. Heart rate seems to have gotten better. The patient does have intermittent low grade fever. No reported chest pain. No reported abdominal pain. No reported vomiting. No reported seizures. The patient remains weak and lethargic. PHYSICAL EXAMINATION: GENERAL: The patient appears lethargic. VITAL SIGNS: Temperature 99.8, pulse 90, respiratory rate 20, blood pressure 147/70, O2 saturation 9 5% on high flow FIO2 of 50%. HEENT: No eye discharge or redness. Nose and ears are normal. NECK: C-spine collar in place. CHEST: Bibasilar rales. No use of accessory muscles. CARDIOVASCULAR: S1, S2 normal. No murmur. ABDOMEN: Soft, nondistended, nontender. No palpable mass. EXTREMITIES: Trace edema. No clubbing or cyanosis. NEUROLOGIC: The patient is weak and lethargic, but easily arousable. IMPRESSION AND PLAN: 1. Acute hypoxemic respiratory failure due to end-stage rheumatoid lung. Continue breathing treatme nt, supplemental oxygen. 2. Atrial fibrillation. The patient was seen by Dr. Fisher and has been started on amiodarone d rip. The patient also has shortness breath and therefore the patient's family agreed for IV morphine 1.5 m g round the clock and every 2 hours p.r.n. We will continue Ativan for anxiety. As well as atrial f ibrillation is concern, patient is currently on amiodarone drip. We will continue IV Solu-Medrol for rheumatoid lung. The patient's family also requested Benadryl 50 mg q.6 IV. According to patient's daughter, 25 mg Benadryl does not help her. The patient has continued to decline since yesterday, h as become more lethargic and also with no significant p.o. intake, also continues to require high shanon w oxygen to maintain adequate oxygenation. The patient remains appropriate for hospice care under __ __. Plan of care was discussed with arunk nurse and nursing staff at [facility] Dictated By: YU NOVAK/DENISA Conf#: [id number] DID#: [id number] CC: CHASE LIM MD;*EndCC*
[2018-04-24] MEDS: morphine SULFATE/PF (2 MG/2 ML) SYG IV SCH ×4 (00:30→12:19)
[2018-04-24] MEDS: morphine SULFATE/PF (2 MG/2 ML) SYG IV PRN (01:33)
[2018-04-24] MEDS: DIPHENHYDRAMINE 50 MG INJ IV PRN ×2 (01:40→10:17)
[2018-04-24] MEDS: LORAZEPAM 2 MG INJ IV SCH ×5 (04:30→20:47)
[2018-04-24] MEDS: ALBUTEROL/IPRATROPIUM (NEB) 3 ML AMP HHN PRN ×5 (07:47→23:33)
[2018-04-24] MEDS: ARTIFICIAL TEARS 15 ML OPH BOTH EYES SCH ×4 (09:01→20:46)
[2018-04-24] MEDS: METHYLPREDNISOLONE 40 MG INJ IV SCH ×2 (09:07→20:47)
[2018-04-24] MEDS: ACETAMINOPHEN 650 MG SUPP PR PRN ×3 (09:07→14:19)
[2018-04-24] MEDS: SOD CHLORIDE 0.9% 1,000 ML IV SCH (12:06)
--- NOTE | 2018-04-24 12:26 | CONS ---
Date/Time of Note Date/Time of Note DATE: 04/24/18 TIME: 12:25 Assessment/Plan Assessment/Plan Hospital Course New onset atrial fibrillation with RVR: No known history. Likely due to underlying respiratory failure. Converted back to sinus after amiodarone drip. Now back and forth Respiratory failure:CT shows possible bronchiolitis as well as right hilar mass compressing right airway. Does not appear to have CHF at this time PNA Right hilar mass DM HTN Hypothyroidism -although the pt is on hospice now, the goal is to keep her comfortable. When she is in afib, she is very uncomfortable. She cannot take PO and I believe IV amiodarone drip is very appropriate at a fixed dose to keep her hopefully in sinus as she lives the last few days of her life. This is within the family's wishes -continue amio at 0.5mg/min drip at a nontitrateable fixed dose Result Diagram: 04/21/18 0935 04/21/18 0935 Consultation Date/Type/Reason Admit Date/Time Apr 16, 2018 at 13:54 Initial Consult Date 04/17/18 Type of Consult Cardiology Requesting Provider: CHASE LIM MD 24 HR Interval Summary Free Text/Dictation Back in sinus. Otherwise no changes Exam/Review of Systems Vital Signs Vitals Vital Signs Date Temp Pulse Resp B/P (MAP) Pulse Ox O2 O2 Flow FiO2 Time Delivery Rate 04/24/18 Vapotherm 12:19 04/24/18 93 50 10:51 04/24/18 111 23 10:48 04/24/18 98.6 10:05 04/24/18 150/65 08:00 (93) Intake and Output 04/23/18 04/23/18 04/24/18 1515:00 23:00 07:00 IntakeIntake Total 120 ml 293 ml 0 ml BalanceBalance 120 ml 293 ml 0 ml Exam Constitutional: distress; No alert Neck: No jvd Respiratory: diminished breath sounds; No clear to auscultation (ronchi) Cardiovascular: regular rate and rhythm; No edema, No systolic murmur Gastrointestinal: soft, non-tender; No distended Neurological: No nl mental status Medications Medications Current Medications IV Flush (NS 3 ml) 3 ml PER PROTOCOL IV ; Start 04/16/18 at 14:30 Miscellaneous Information 1 ea NOTE XX ; Start 04/16/18 at 16:30 Sodium Chloride 1,000 ml @ 30 mls/hr Q24H IV Last administered on 04/23/18 11:24; Admin Dose 30 MLS/HR; Start 04/22/18 at 12:06 Albuterol/ Ipratropium (Duoneb) 3 ml Q4H RESP THERAPY PRN HHN SHORTNESS OF BREATH Last administered on 04/24/18 10:46; Admin Dose 3 ML; Start 04/22/18 at 12:30 Morphine Sulfate (morphine SULFATE (PF)) 1 mg Q2 PRN IV PAIN LEVEL 4-6 Last administered on 04/24/18 01:33; Admin Dose 1 MG; Start 04/22/18 at 12:30 Lorazepam (Ativan) 0.5 mg Q4H PRN IV AGITATION/ANXIETY Last administered on 04/23/18 13:13; Admin Dose 0.5 MG; Start 04/22/18 at 12:30 Ondansetron HCl (Zofran Inj) 4 mg Q4 PRN IV NAUSEA AND/OR VOMITING; Start 04/22/18 at 12:30 Atropine Sulfate (Atropine 1% Oph) 2 drop Q2 PRN SL PRN SECRETIONS; Start 04/22/18 at 12:30 Eye Lubricant (Artificial Tears Oph) 2 drop EACH SHIFT PRN BOTH EYES DRY EYES Last administered on 04/23/18 16:09; Admin Dose 2 DROP; Start 04/22/18 at 12:30 Dimethicone (Blistex Lip [place]) 1 applic EACH SHIFT PRN TOP DRY LIPS; Start 04/22/18 at 12:30 Bisacodyl (Dulcolax Supp) 10 mg DAILY PRN [place] CONSTIPATION; Start 04/22/18 at 12:30 Morphine Sulfate (morphine SULFATE (PF)) 2 mg Q2H PRN IV SEVERE PAIN LEVEL 7-10 Last administered on 04/23/18 08:01; Admin Dose 2 MG; Start 04/22/18 at 12:30 Methylprednisolone Sodium Succinate (Solu-Medrol) 20 mg Q12 IV Last administered on 04/24/18 09:07; Admin Dose 20 MG; Start 04/22/18 at 21:00 Diphenhydramine HCl (Benadryl) 50 mg Q6H PRN IV PRURITUS Last administered on 04/24/18 10:17; Admin Dose 50 MG; Start 04/23/18 at 10:00 Morphine Sulfate (morphine SULFATE (PF)) 1.5 mg Q4H IV Last administered on 04/24/18 12:19; Admin Dose 1.5 MG; Start 04/23/18 at 16:30 Lorazepam (Ativan) 0.5 mg Q4H IV Last administered on 04/24/18 09:01; Admin Dose 0.5 MG; Start 04/23/18 at 16:30 Acetaminophen (Tylenol Supp) 650 mg Q4 PRN [place] FEVER Last administered on 04/24/18 09:07; Admin Dose 650 MG; Start 04/23/18 at 16:00 Amiodarone HCl 900 mg/Dextrose 500 ml @ 16.67 mls/ hr Q24H IV Last administered on 04/23/18 17:34; Admin Dose 16.67 MLS/HR; Start 04/23/18 at 18:00 Eye Lubricant (Artificial Tears Oph) 2 drop QID BOTH EYES Last administered on 04/24/18 09:01; Admin Dose 2 DROP; Start 04/23/18 at 21:00 BRIAN JIMENES Apr 24, 2018 12:26
[2018-04-24] MEDS ORDERED: HYDROmorphONE 0.5 MG/0.5 ML SYG IV PRN (16:00)
[2018-04-24] MEDS: HYDROmorphONE 0.5 MG/0.5 ML SYG IV SCH ×2 (16:43→21:19)
[2018-04-24] MEDS: AMIODARONE 900 MG in DEXTROSE 5% 482 ML IV SCH (19:01)
[2018-04-25] VITALS (12 sets, daily range): BP systolic 104–172; BP diastolic 51–79; PULSE 54–140; RESP 14–20
[2018-04-25] MEDS: HYDROmorphONE 0.5 MG/0.5 ML SYG IV SCH ×6 (00:38→20:41)
[2018-04-25] MEDS: LORAZEPAM 2 MG INJ IV SCH ×6 (00:58→20:30)
--- NOTE | 2018-04-25 01:34 | PN ---
DATE: 04/24/2018 PRIMARY HOSPICE DIAGNOSES: Acute respiratory failure due to pulmonary fibrosis. HISTORY OF PRESENT ILLNESS: The patient since yesterday has continued to decline and has become more lethargic, but more comfortable as far as respiratory status is concerned after she was started on r ound the clock IV morphine. The patient did not have any vomiting. The patient remains on high flow oxygen as per family request. The patient did not have any seizures. No reported temperature spike . No reported bleeding from any site. PHYSICAL EXAMINATION: GENERAL: The patient is lethargic, but currently getting high flow oxygen at 25 liters. HEENT: No eye discharge or redness. Nose and ears are normal. NECK: No mass. CHEST: Bibasilar rales. No use of accessory muscles. CARDIOVASCULAR: S1, S2 normal. No murmur. ABDOMEN: Soft and nontender. EXTREMITIES: Trace edema. No clubbing or cyanosis. NEUROLOGIC: The patient is lethargic and no useful communication was possible. IMPRESSION: Acute respiratory failure due to end-stage lung fibrosis due to rheumatoid arthritis. I had a lengthy discussion with patient's family. The patient's family is requesting to switch her to Dilaudid due to intensity of pain. The patient was started on Dilaudid drip at 0.2 mg per hour, whi ch will be titrated up for comfort care. Benadryl will be switched to p.r.n. only as the patient had an episode of restlessness. The patient will be continued on high flow oxygen as per family request . The patient remains n.p.o. We will continue atropine drops for secretion and DuoNeb for chest con gestion. The patient remains terminally ill and appropriate for [facility] level of care. We will also dec rease Solu-Medrol to 10 mg b.i.d. as per family request. Dictated By: YU MATTSON MD AB/NTS Conf#: [id number] DID#: [id number] CC: CHASE LIM MD; COLIN FRANCO MD;*EndCC*
[2018-04-25] MEDS: ACETAMINOPHEN 650 MG SUPP PR PRN ×2 (03:06→20:41)
[2018-04-25] MEDS: ALBUTEROL/IPRATROPIUM (NEB) 3 ML AMP HHN PRN ×3 (07:26→15:11)
[2018-04-25] MEDS: METHYLPREDNISOLONE 40 MG INJ IV SCH ×2 (08:34→20:41)
[2018-04-25] MEDS: ARTIFICIAL TEARS 15 ML OPH BOTH EYES SCH ×4 (08:35→20:41)
[2018-04-25] MEDS: AMIODARONE 900 MG in DEXTROSE 5% 482 ML IV SCH (20:41)
--- NOTE | 2018-04-25 22:06 | PN ---
DATE: 04/25/2018 PRIMARY HOSPICE DIAGNOSIS: Acute respiratory failure due to rheumatoid lung, and paroxysmal atrial f ibrillation. Since yesterday, patient has declined and her p.o. intake is almost nil. The patient, according to family, does open eyes and intermittently responds. The patient has not had any vomitin g. The patient's hypoxemia has worsened and now she is on 100% FiO2, on high flow. The patient look s pale and weak. PHYSICAL EXAMINATION: GENERAL: The patient is nonverbal. VITAL SIGNS: Temperature 99.8, pulse 58, respirations 15, blood pressure 130/59, O2 saturation 98% o n 100% FIO2. HEENT: No eye discharge or redness. Nose and ears normal. Oropharynx examination was deferred. NECK: No mass. Slight use of accessory muscles. CHEST: Bibasilar rales. CARDIOVASCULAR: S1, S2 normal. ABDOMEN: Soft, nondistended, nontender. EXTREMITIES: No edema. NEUROLOGIC: The patient is lethargic and no useful communication is possible. IMPRESSION: 1. Acute respiratory failure. 2. Pulmonary fibrosis. 3. Paroxysmal atrial fibrillation. PLAN: I met with the patient's family and recommended to increase Dilaudid due to use of accessory m uscles. However, they requested to continue the same dose for now. The patient is currently getting 0.2 mg every 4 hours IV and every 1 hour p.r.n. The patient also remains on amiodarone for paroxysm al atrial fibrillation. Continue IV Ativan for anxiety. The patient remains terminally ill and appr opriate for [facility] level of care. Plan of care discussed with the patient's family. Plan of care also discussed with the hospice nurse Angel. Dictated By: YU MATTSON MD AB/NTS Conf#: [id number] DID#: [id number] CC: CHASE LIM MD;*EndCC*
[2018-04-26] VITALS (10 sets, daily range): BP systolic 60–112; BP diastolic 37–64; PULSE 61–148; RESP 14–24; Ht 152.4 cm; Wt 40.9 kg
[2018-04-26] MEDS: LORAZEPAM 2 MG INJ IV SCH ×6 (00:30→21:04)
[2018-04-26] MEDS: HYDROmorphONE 0.5 MG/0.5 ML SYG IV SCH ×6 (03:07→21:04)
[2018-04-26] MEDS: ARTIFICIAL TEARS 15 ML OPH BOTH EYES SCH ×4 (08:03→21:00)
[2018-04-26] MEDS: METHYLPREDNISOLONE 40 MG INJ IV SCH ×2 (08:27→21:00)
[2018-04-26] MEDS: AMIODARONE 900 MG in DEXTROSE 5% 482 ML IV SCH (18:00)
--- NOTE | 2018-04-26 21:58 | PN ---
DATE: 04/26/2018 PRIMARY HOSPITAL DIAGNOSES: 1. Acute respiratory failure due to rheumatoid lung disease. 2 Comorbid rheumatoid arthritis. 3. Anemia. 4. Atrial fibrillation. SUBJECTIVE: The patient since yesterday has declined further and is not interactive anymore intermit tently opens eyes, but tends to sleep most of the time. No p.o. intake since yesterday. The patient did not have any seizure, no reported vomiting, but chest congestion is stable with the current dahiana tment regimen. PHYSICAL EXAMINATION: GENERAL: The patient is nonverbal. VITAL SIGNS: Temperature of 101.5, pulse 92, respirations 14, blood pressure 83/37 , O2 sat 85 to 91 % on FIO2 100%. HEENT: No eye discharge or redness. Nose is normal. NECK: No mass. CHEST: Diminished air entry and diffuse scattered coarse breath sounds. CARDIOVASCULAR: Irregular rhythm. ABDOMEN: Soft, nondistended. EXTREMITIES: No edema. NEUROLOGIC: The patient is nonverbal. IMPRESSION AND PLAN: 1. The patient is currently on IV Solu-Medrol for her interstitial lung disease which family request ed to continue. The patient also is on IV Dilaudid 0.2 mg q.4hour and q.2hour p.r.n. The patient do es appear to be using accessory muscle of the neck; however, the patient's family reported that she h ad been using it even prior to current illness. Due to her chronic lung disease and did not want to give breakthrough Dilaudid or increase in the dose of Dilaudid. 2. Chronic atrial fibrillation, heart rate controlled with current dose of amiodarone. 3. Terminal fever. Continue Tylenol on p.r.n. basis. 4. Anxiety, well controlled with current dose of Ativan at 0.5 mg every 4 hours. 5. For secretion. The patient is on atropine drops on p.r.n. basis. 6. For chest congestion. The patient is on DuoNeb 4 hours as needed. I met with patient's family and updated them regarding plan of care discussed. Also discussed plan o f care with nurse Ortiz. She also provided teaching regarding shortness of breath management with Marc PHILLIPS. The patient remains terminally ill and appropriate for [facility] level of care. Dictated By: YU NOVAK/DENISA Conf#: [id number] [facility]#: [id number] CC: COLIN FRANCO MD; CHASE LIM MD; YU MATTSON MD;*[facility]*
[2018-04-27] VITALS: PULSE 59
[2018-04-27] MEDS: LORAZEPAM 2 MG INJ IV SCH ×5 (02:06→10:24)
[2018-04-27] MEDS: HYDROmorphONE 0.5 MG/0.5 ML SYG IV SCH ×5 (02:06→10:24)
[2018-04-27 08:00] VITALS: PULSE 56
[2018-04-27] MEDS: ARTIFICIAL TEARS 15 ML OPH BOTH EYES SCH (10:22)
[2018-04-27] MEDS: METHYLPREDNISOLONE 40 MG INJ IV SCH (10:24)
--- NOTE | 2018-04-28 02:17 | DES ---
DATE OF ADMISSION: 04/16/2018 DATE OF : 04/27/2018 TIME OF : 08:49. 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 COMORBID: Rheumatoid arthritis, atrial fibrillation. 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 The patient was admitt ed at [facility] on 04/16/2018 because of getting shortness of breath and was diagn osed with acute hypoxemic respiratory failure secondary to pneumonia. The patient was treated with b road spectrum IV antibiotic and subsequently was noted to require high flow oxygen. The patient unfo rtunately could not be weaned off high flow oxygen. The patient during her hospitalization also had episodes of atrial fibrillation with rapid ventricular response. The patient was seen by Dr. Gabo navarro from cardiac standpoint, Dr. Alcantara from pulmonary standpoint. The patient's family was referred to hospice evaluation and they agreed to put her on comfort care. The patient was admitted on 2018 for hospice care. The patient was placed on [facility] level. The patient continued to remain on high flow oxygen. The patient was also given IV morphine q.4 hours and also IV Ativan q.4 hours. The pa tient was noted having increasing itching; therefore morphine was switched to Dilaudid 0.2 mg every 4 hours. The patient also required atropine drops for secretions and DuoNeb for chest congestion. Th e patient during her hospice stay also went into AFib with symptomatic RVR therefore had to be starte d on amiodarone drip. The patient rapidly declined and became progressively more hypoxemic and neede d to be put on 100% FiO2. The patient's p.o. intake also declined. The patient also became progress ively more lethargic and nonverbal. Last night, she became more short of breath and Dilaudid was inc reased to 0.2 mg q.2 hours round the clock and q.2 p.r.n. The patient on 04/27/2018 was noted to hav e no pulse or BP, no respiratory movement. The patient had no heart sound and pupils were fixed and dilated. The patient was pronounced at 08:49 on 04/27/2018. I spoke with the staff nurse at [facility] and also had multiple conversations with the patient's daughters. Dictated By: YU NOVAK/NTS Conf#: [id number] DID#: [id number] CC: CHASE LIM MD; COLIN FRANCO MD;*EndCC*
== END 2018-04-27 12:05 | disposition expired | DRG 189 ==
LOC: E/R 11:11 → 6WM 13:54
PROVIDERS: ADMIT Internal Medicine; ATTEND Internal Medicine
DX: J96.01 Acute respiratory failure with hypoxia (principal); J18.9 Pneumonia, unspecified organism; N17.9 Acute kidney failure, unspecified; M05.10 Rheumatoid lung disease with rheumatoid arthritis of unspecified site; D64.9 Anemia, unspecified; E03.9 Hypothyroidism, unspecified; E11.9 Type 2 diabetes mellitus without complications; I10 Essential (primary) hypertension; I48.91 Unspecified atrial fibrillation; J84.10 Pulmonary fibrosis, unspecified; L89.152 Pressure ulcer of sacral region, stage 2; R91.8 Other nonspecific abnormal finding of lung field; Z66 Do not resuscitate; Z51.5 Encounter for palliative care; Z79.4 Long term (current) use of insulin; Z79.82 Long term (current) use of aspirin
CPT/HCPCS: 36415; 71045; 71260; 80048; 80053; 80069; 82962; 83036; 83605; 83735; 83880; 84100; 84443; 84484; 85025; 85610; 85730; 87040; 92526; 92610; 93005; 93306; 94640; 94664; 96374; 96375; 97165; C9113; J0131; J0282; J0692; J1170; J1200; J1630; J1650; J1815; J1817; J1885; J1940; J2060; J2274; J2405; J2920; J3370; J3475; J3480; J7030; J7042; J7060; Q9967